=== PATIENT | female | born 1985 | race African-American/Black ===

== ENCOUNTER 2019-09-20 10:59 | Emergency (ER) | payer OTHER, SELFPAY ==
--- NOTE | 2019-09-20 11:05 | ED.GENADULT ---
HPI - General Adult General Chief complaint: Dental/Oral Stated complaint: toothache Time Seen by Provider: 09/20/19 11:14 Source: patient Mode of arrival: ambulatory Limitations: no limitations History of Present Illness HPI narrative: 33-year-old female patient presents to the [facility] with complaints of left lower dental pain x2 days that has gotten increasingly worse last night. Patient states she has been using Orajel, taking Tylenol and Motrin for the pain. Patient states she has been running some low-grade fevers. Patient states that her dentist office is not currently seeing any patients at this time. Related Data Home Medications Medication Instructions Recorded Confirmed clonazepam 1 mg PO DAILY 04/04/19 09/20/19 sertraline [Zoloft] 100 mg PO DAILY 04/04/19 09/20/19 Allergies Allergy/AdvReac Type Severity Reaction Status Date / Time metoclopramide Allergy Intermediate HALLUCINATI Verified 09/20/19 11:14 ONS tramadol Allergy Mild Confusion Verified 09/20/19 11:14 Review of Systems Review of Systems: Narrative: CONSTITUTIONAL: Denies fever, chills, or sweats. EYES: Denies visual changes, redness, or discharge. ENT: Denies rhinorrhea, congestion, sore throat, or otalgia. Positive left lower dental pain x2 days CARDIOVASCULAR: Denies chest pain, palpitations, or edema. RESPIRATORY: Denies cough or dyspnea. GASTROINTESTINAL: Denies abdominal pain, nausea, vomiting, or diarrhea. GENITOURINARY: Denies dysuria or hematuria. SKIN: Denies rash or itching. MUSCULOSKELETAL: Denies back pain, joint pain, or myalgia. NEUROLOGIC: Denies headache, numbness, or weakness. PSYCHIATRIC: Denies anxiety or depression. [facility] Past Medical History Medical History Anxiety Depression History of ovarian cyst Surgical History Surgical History Hx of section Social History Social History Smoking packs per day: 0.5 Smoking cigarettes per day: 10.0 Smoking status: Current every day smoker Gender identity (if verbalized by the patient): Female Comments At the time of my signature I agree with nursing past medical history, surgical, social, and family history. There is no relevant family history pertinent to the presenting complaint. Exam Narrative: Exam Narrative: GENERAL: Well-appearing, well-nourished, and in no acute distress. HEAD: Normocephalic, atraumatic. EYES: PERRLA and EOMI. ENT: Nares clear, no rhinorrhea or epistaxis. Mucous membranes moist. Patient does have a noticeable abscess that is open and draining to the left back molar. There is some surrounding erythema and swelling noted. There is tenderness to the touch. NECK: Supple. No lymphadenopathy CHEST: Clear to auscultation. No respiratory distress. HEART: Regular rate and rhythm. No murmur heard. Normal peripheral pulses. ABDOMEN: Soft, nontender, nondistended, normal active bowel sounds. EXTREMITIES: Normal range of motion. No edema. SKIN: Warm, dry, no rash. NEURO: No focal deficits. Alert and oriented x3. Course Vital Signs Vital signs: Vital Signs Temperature 37.8 C H 09/20/19 11:08 Pulse Rate 103 H 09/20/19 11:08 Respiratory Rate 16 09/20/19 11:08 Blood Pressure 125/77 09/20/19 11:08 Pulse Oximetry 98 09/20/19 11:08 Temperature 37.8 C H 09/20/19 11:08 Pulse Rate 103 H 09/20/19 11:08 Respiratory Rate 16 09/20/19 11:08 Blood Pressure 125/77 09/20/19 11:08 Pulse Oximetry 98 09/20/19 11:08 Vital signs reviewed Medical Decision Making Differential Diagnosis Differential Diagnosis: Differential diagnosis: Dental caries, periodontal disease, avulsed tooth, tooth infections, mandibular infection, Tan's angiana, upper tooth infection, dry socket, gingivitis, acute necrotizing ulcerative gingivitis, sialolithiasis. Notify patient
[2019-09-20 11:08] VITALS: BP 125/77; PULSE 103; RESP 16; TEMP 37.8; O2SAT 98
== END 2019-09-20 11:25 | disposition home or self-care (01) ==
PROVIDERS: Emergency Provider Nurse Practitioner Family
DX: K04.7 Periapical abscess without sinus (principal)
CPT/HCPCS: 99213; G0463

== ENCOUNTER 2020-01-29 11:53 | Emergency (ER) | payer OTHER, SELFPAY ==
--- NOTE | 2020-01-29 11:59 | ED.ABDPAIN ---
HPI - Abdominal Pain General Chief Complaint: Abdominal Pain Stated Complaint: LOWER ABD/BACKPAIN Source: patient and RN notes reviewed Mode of arrival: ambulatory Limitations: no limitations Related Data Home Medications Medication Instructions Recorded Confirmed clonazepam 1 mg PO DAILY 04/04/19 09/20/19 sertraline [Zoloft] 100 mg PO DAILY 04/04/19 09/20/19 Allergies Allergy/AdvReac Type Severity Reaction Status Date / Time metoclopramide Allergy Intermediate HALLUCINATI Verified 09/20/19 11:14 ONS tramadol Allergy Mild Confusion Verified 09/20/19 11:14 Review of Systems Review of Systems: All systems reviewed & are unremarkable except as noted in HPI and below PMFSH Social History Social History Smoking packs per day: 0.5 Smoking cigarettes per day: 10.0 Smoking status: Current every day smoker Gender identity (if verbalized by the patient): Female Comments At time of signature, agree with nursing past medical, surgical, social and family history. There is no relevant family history pertinent to the presenting complaint Course Course Emergency Course: Patient is aware of diagnosis, understands and agrees to treatment plan. Anticipatory guidance given. Patient agrees to follow-up as directed and is aware of reasons to seek care at the emergency department. Portions of this record may have been created with voice recognition software Vital Signs Vital signs: Reviewed. Critical Care Time Critical Care Time Critical Care Time: No Discharge Plan Discharge Prescriptions: No Action sertraline [Zoloft] 100 mg Tablet 100 mg PO DAILY RF: 0 clonazepam 1 mg Tablet 1 mg PO DAILY RF: 0
[2020-01-29 12:08] VITALS: BP 115/78; PULSE 101; RESP 16; TEMP 37.2; O2SAT 100
--- NOTE | 2020-01-29 12:20 | PC.NURSE ---
in br to obtain ua spec.
--- NOTE | 2020-01-29 12:21 | ED.FEMALEGU ---
HPI - Female Genitourinary General Chief complaint: Abdominal Pain Stated complaint: LOWER ABD/BACKPAIN Time Seen by Provider: 01/29/20 12:20 Source: patient and RN notes reviewed Mode of arrival: ambulatory Limitations: no limitations History of Present Illness HPI Narrative: 34-year-old female presents with concern for 3-day history of suprapubic tenderness, bilateral low back pain, dysuria, frequency. Reports her last menstrual period was 1 week ago. She denies fever, nausea, vomiting, malaise. Denies abdominal tenderness. MD elicited complaint: dysuria Related Data Home Medications Medication Instructions Recorded Confirmed clonazepam 1 mg PO DAILY 04/04/19 09/20/19 sertraline [Zoloft] 100 mg PO DAILY 04/04/19 09/20/19 Allergies Allergy/AdvReac Type Severity Reaction Status Date / Time metoclopramide Allergy Intermediate HALLUCINATI Verified 09/20/19 11:14 ONS tramadol Allergy Mild Confusion Verified 09/20/19 11:14 Review of Systems Review of Systems: Narrative: CONSTITUTIONAL: Denies malaise, chills, sweats, or fever. CARDIOVASCULAR: Denies chest pain, palpitations, or edema. RESPIRATORY: Denies dyspnea. GASTROINTESTINAL: Denies abdominal pain, nausea, vomiting, diarrhea, bloody, or mucous stools. GENITOURINARY: Reports dysuria, suprapubic pain, frequency. Denies hematuria. SKIN: Denies rash or itching. MUSCULOSKELETAL: Reports low back pain. Denies joint pain, or myalgia. All systems reviewed & are unremarkable except as noted in HPI and below PMFSH Social History Social History Smoking packs per day: 0.5 Smoking cigarettes per day: 10.0 Smoking status: Current every day smoker Gender identity (if verbalized by the patient): Female Comments At time of signature, agree with nursing past medical, surgical, social and family history. There is no relevant family history pertinent to the presenting complaint Exam Narrative: Exam Narrative: GENERAL: Well-appearing, well-nourished, and in no acute distress. HEAD: Normocephalic. EYES: PERRLA, conjunctivae clear. NECK: Supple. No lymphadenopathy CHEST: Clear to auscultation. No respiratory distress. HEART: Regular rate and rhythm. No murmur heard. Normal peripheral pulses. ABDOMEN: Soft, nontender upon palpation, nondistended, normal active bowel sounds, no palpable or pulsatile masses, no guarding. No CVA tenderness SKIN: Warm, dry, no rash. NEURO: Alert and oriented x3. PSYCH: Normal mood and affect Course Course Emergency Course: Patient is aware of diagnosis, understands and agrees to treatment plan. Anticipatory guidance given. Patient agrees to follow-up as directed and is aware of reasons to seek care at the emergency department. Portions of this record may have been created with voice recognition software Vital Signs Vital signs: Vital Signs Temperature 98.9 F 01/29/20 12:08 Pulse Rate 101 H 01/29/20 12:08 Respiratory Rate 16 01/29/20 12:08 Blood Pressure 115/78 01/29/20 12:08 Pulse Oximetry 100 01/29/20 12:08 Temperature 98.9 F 01/29/20 12:08 Pulse Rate 101 H 01/29/20 12:08 Respiratory Rate 16 01/29/20 12:08 Blood Pressure 115/78 01/29/20 12:08 Pulse Oximetry 100 01/29/20 12:08 Reviewed. MDM - Female Genitourinary MDM Narrative Medical decision making narrative: Exam findings and UA show no acute concerns or changes; patient is non-toxic appearing and is in no distress. Patient is appropriate for outpatient treatment and follow-up. Differential Diagnosis Differential diagnosis: Likely urinary tract infection and cystitis Lab Data Labs: UCG Bedside Result Negative Reference Range: Negative Urine Glucose Negative Reference Range: Negative Urine Bilirubin Negative Reference Range: Negative Urine Ketone Negative Reference Range: Negative Urine Speci
== END 2020-01-29 12:56 | disposition home or self-care (01) ==
PROVIDERS: Emergency Provider Nurse Practitioner
DX: R10.30 Lower abdominal pain, unspecified (principal); R30.0 Dysuria; R35.0 Frequency of micturition; F17.210 Nicotine dependence, cigarettes, uncomplicated; F41.9 Anxiety disorder, unspecified; F32.9 Major depressive disorder, single episode, unspecified
CPT/HCPCS: 81003; 81025; 87077; 87086; 87088; 87186; 99213; G0463

== ENCOUNTER 2020-03-11 17:22 | Emergency (ER) | payer OTHER, SELFPAY ==
[2020-03-11 17:37] VITALS: BP 124/74; PULSE 107; RESP 16; TEMP 36.8; O2SAT 99
--- NOTE | 2020-03-11 17:54 | ED.DENTAL ---
HPI - Dental/Oral General Chief complaint: Dental/Oral Stated complaint: Abscess Time Seen by Provider: 03/11/20 17:33 Source: patient and RN notes reviewed Mode of arrival: ambulatory Limitations: no limitations History of Present Illness HPI Narrative: This is a 34-year-old -[place] female who presented today with left jaw pain. According to patient 2 days ago she started developing pain to her left cheek from biting down on cheek and she also has a cavity to tooth #32. The patient denies SOB, CP, palpitation, extremity numbness, lightheadedness, dizziness, constipation, diarrhea, chills, or fever. Patient notes that she does not have much pain from her tooth but more so from her jaw that has trauma Related Data Home Medications Medication Instructions Recorded Confirmed clonazepam 1 mg PO DAILY 04/04/19 03/11/20 sertraline [Zoloft] 100 mg PO DAILY 04/04/19 03/11/20 Allergies Allergy/AdvReac Type Severity Reaction Status Date / Time metoclopramide Allergy Intermediate HALLUCINATI Verified 03/11/20 17:35 ONS tramadol Allergy Mild Confusion Verified 03/11/20 17:35 Review of Systems Review of Systems: All systems reviewed & are unremarkable except as noted in HPI and below (10 system review) PMFSH Past Medical History Medical History (Updated 03/11/20 @ 17:52 by MERLIN Reina) Anxiety Depression History of ovarian cyst Surgical History Surgical History Hx of section Social History Social History Smoking packs per day: 0.5 Smoking cigarettes per day: 10.0 Smoking status: Current every day smoker Gender identity (if verbalized by the patient): Female Exam Narrative: Exam Narrative: GENERAL: This is a well-nourished, well-developed patient, in no apparent distress. HEAD: normocephalic, atraumatic. EYES: PERRL. Sclera clear/white. Vision is grossly intact. EARS: External ears normal, auditory canals clear and without drainage, TMs normal without perforation. Hearing grossly intact. NOSE: External nose normal with no obvious nasal discharge, nares without redness, no rhinorrhea. THROAT: Edematous left cheek membrane with brown discoloration #32 tooth NECK: Neck supple, non-tender without lymphadenopathy, masses or thyromegaly. CARDIOVASCULAR: Regular rate and rhythm without murmurs, gallops, or rubs. RESPIRATORY: Clear to auscultation. Breath sounds equal bilaterally. No wheezes, rales, or rhonchi. GASTROINTESTINAL: Abdomen soft, non-tender, nondistended. Bowel sounds are active. No hepato-splenomegaly, or palpable masses. No guarding. SKIN: warm, intact with no suspicious lesions or rash, good texture and turgor. NEURO: awake, alert, and oriented to person, place and time. There were no obvious focal neurologic abnormalities. Steady gait EXTREMITIES: Normal range of motion. No edema. No calf tenderness. Negative Homans sign bilaterally. BACK: Nontender without deformity or crepitance. No flank tenderness. Course Course Emergency Course: Patient will discharge home with clindamycin 3 times daily x7 days and instructions on wound care Vital Signs Vital signs: Vital Signs Temperature 98.2 F 03/11/20 17:37 Pulse Rate 107 H 03/11/20 17:37 Respiratory Rate 16 03/11/20 17:37 Blood Pressure 124/74 03/11/20 17:37 Pulse Oximetry 99 03/11/20 17:37 Temperature 98.2 F 03/11/20 17:37 Pulse Rate 107 H 03/11/20 17:37 Respiratory Rate 16 03/11/20 17:37 Blood Pressure 124/74 03/11/20 17:37 Pulse Oximetry 99 03/11/20 17:37 Discharge Plan Discharge Clinical Impression: Dental caries Patient Disposition: Home, Self-Care Condition: Stable Instructions: Antibiotic Form, Toothache (ED) Prescriptions: New amoxicillin-pot clavulanate [Augmentin] 500-125 mg tablet 1 tablet PO TID 10 Days Qty: 30 RF: 0 hydrocodone-acetam
== END 2020-03-11 17:55 | disposition home or self-care (01) ==
PROVIDERS: Emergency Provider Nurse Practitioner
DX: K02.9 Dental caries, unspecified (principal); F17.210 Nicotine dependence, cigarettes, uncomplicated; F41.9 Anxiety disorder, unspecified; F32.9 Major depressive disorder, single episode, unspecified
CPT/HCPCS: 99213; G0463

== ENCOUNTER 2020-04-19 09:03 | Emergency (ER) | payer OTHER, SELFPAY ==
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
[2020-04-19 09:22] VITALS: BP 137/96; PULSE 101; RESP 16; TEMP 37; O2SAT 99
== END 2020-04-19 09:42 | disposition home or self-care (01) ==
PROVIDERS: Emergency Provider Nurse Practitioner Family
DX: S09.90XA Unspecified injury of head, initial encounter (principal); Y00.XXXA Assault by blunt object, initial encounter; F41.9 Anxiety disorder, unspecified; F32.9 Major depressive disorder, single episode, unspecified
CPT/HCPCS: 99213; G0463

== ENCOUNTER 2020-09-05 15:45 | Emergency (ER) | payer OTHER, SELFPAY ==
[2020-09-05 16:14] VITALS: BP 121/59; PULSE 99; RESP 16; TEMP 36.4; O2SAT 100
--- NOTE | 2020-09-05 16:39 | ED.GENADULT ---
HPI - General Adult General Chief complaint: Dental/Oral Stated complaint: body aches abd /tooth pain Time Seen by Provider: 09/05/20 16:39 Source: patient Mode of arrival: ambulatory Limitations: no limitations History of Present Illness HPI narrative: 34-year-old female patient presents to the [facility] with complaints of left upper and lower dental pain for the past week. Patient states she has been taking Tylenol, ibuprofen multiple times a day without much relief. Patient states she has had dental infections before the past. Denies any fevers, body aches or chills that she is aware of. Patient states she does not have a current dentist at this time. Related Data Home Medications Medication Instructions Recorded Confirmed clonazepam 1 mg PO DAILY 04/04/19 09/05/20 sertraline [Zoloft] 100 mg PO DAILY 04/04/19 09/05/20 Allergies Allergy/AdvReac Type Severity Reaction Status Date / Time metoclopramide Allergy Intermediate HALLUCINATI Verified 09/05/20 16:22 ONS tramadol Allergy Mild Confusion Verified 09/05/20 16:22 Review of Systems Review of Systems: Narrative: CONSTITUTIONAL: Denies fever, chills, or sweats. EYES: Denies visual changes, redness, or discharge. ENT: Denies rhinorrhea, congestion, sore throat, or otalgia. Positive left upper and lower dental pain x1 week CARDIOVASCULAR: Denies chest pain, palpitations, or edema. RESPIRATORY: Denies cough or dyspnea. GASTROINTESTINAL: Denies abdominal pain, nausea, vomiting, or diarrhea. GENITOURINARY: Denies dysuria or hematuria. SKIN: Denies rash or itching. MUSCULOSKELETAL: Denies back pain, joint pain, or myalgia. NEUROLOGIC: Denies headache, numbness, or weakness. PSYCHIATRIC: Denies anxiety or depression. [facility] Past Medical History Medical History (Updated 09/05/20 @ 16:45 by DAPHNEY Adames) Anxiety Depression GERD (gastroesophageal reflux disease) History of ovarian cyst Surgical History Surgical History Hx of section Social History Social History Smoking packs per day: 0.5 Smoking cigarettes per day: 10.0 Smoking status: Current every day smoker Gender identity (if verbalized by the patient): Female Comments At the time of my signature I agree with nursing past medical history, surgical, social, and family history. There is no relevant family history pertinent to the presenting complaint. Exam Narrative: Exam Narrative: GENERAL: Well-appearing, well-nourished, and in no acute distress. HEAD: Normocephalic, atraumatic. EYES: PERRLA and EOMI. ENT: Nares clear, no rhinorrhea or epistaxis. Mucous membranes moist. Patient has what appears to be an impacted wisdom tooth to the left lower back with surrounding erythema and redness. Patient also has what appears to be a cracked tooth to the left upper molar. Patient has some surrounding erythema to this tooth as well. No obvious abscess noted no abscesses palpated to the inner cheek. NECK: Supple. No lymphadenopathy CHEST: Clear to auscultation. No respiratory distress. HEART: Regular rate and rhythm. No murmur heard. Normal peripheral pulses. ABDOMEN: Soft, nontender, nondistended, normal active bowel sounds. EXTREMITIES: Normal range of motion. No edema. SKIN: Warm, dry, no rash. NEURO: No focal deficits. Alert and oriented x3. Course Vital Signs Vital signs: Vital Signs Temperature 36.4 C L 09/05/20 16:14 Pulse Rate 99 09/05/20 16:14 Respiratory Rate 16 09/05/20 16:14 Blood Pressure 121/59 L 09/05/20 16:14 Pulse Oximetry 100 09/05/20 16:14 Temperature 36.4 C L 09/05/20 16:14 Pulse Rate 99 09/05/20 16:14 Respiratory Rate 16 09/05/20 16:14 Blood Pressure 121/59 L 09/05/20 16:14 Pulse Oximetry 100 09/05/20 16:14 Vital signs reviewed Medical Decision Making Differential Diagnosis Differential Diagnosis: Differential d
== END 2020-09-05 16:55 | disposition home or self-care (01) ==
PROVIDERS: Emergency Provider Nurse Practitioner Family
DX: K04.7 Periapical abscess without sinus (principal); K21.9 Gastro-esophageal reflux disease without esophagitis; F17.210 Nicotine dependence, cigarettes, uncomplicated; F41.9 Anxiety disorder, unspecified; F32.9 Major depressive disorder, single episode, unspecified
CPT/HCPCS: 99213; G0463

== ENCOUNTER 2020-10-10 14:03 | Emergency (ER) | payer OTHER, SELFPAY ==
[2020-10-10 14:11] VITALS: BP 126/83; PULSE 99; RESP 16; TEMP 36.5; O2SAT 100
--- NOTE | 2020-10-10 14:20 | ED.DENTAL ---
HPI - Dental/Oral General Chief complaint: Dental/Oral Stated complaint: Tooth Pain Time Seen by Provider: 10/10/20 14:15 Source: patient and RN notes reviewed Mode of arrival: ambulatory Limitations: no limitations History of Present Illness HPI Narrative: 35-year-old female presents to the [facility] with the front bottom teeth pain swelling and decay of the gum. Patient states she has not seen a dentist in years. Has swelling and pus along with decay for bottom teeth. Related Data Home Medications Medication Instructions Recorded Confirmed clonazepam 1 mg PO DAILY 04/04/19 09/05/20 sertraline [Zoloft] 100 mg PO DAILY 04/04/19 09/05/20 Allergies Allergy/AdvReac Type Severity Reaction Status Date / Time metoclopramide Allergy Intermediate HALLUCINATI Verified 09/05/20 16:22 ONS tramadol Allergy Mild Confusion Verified 09/05/20 16:22 Review of Systems Review of Systems: All systems reviewed & are unremarkable except as noted in HPI and below Constitutional: Constitutional: Reports no additional constitutional complaints Eyes: Eyes: Reports no additional eye complaints ENT: Reports as per HPI Comments: Pain bottom for teeth with decay Cardiovascular: Cardiovascular: Reports no additional cardiovascular complaints and Denies chest pain Respiratory: Respiratory: Reports no additional respiratory complaints, Denies cough and Denies dyspnea Gastrointestinal: Gastrointestinal: Reports no additional gastrointestinal complaints, Denies abdominal pain, Denies nausea and Denies vomiting Genitourinary: Genitourinary: Reports no additional female genitourinary complaints Musculoskeletal: Musculoskeletal: Reports no additional musculoskeletal complaints Integumentary/Breasts: Skin/Breast: Reports system reviewed and no additional complaints, except as docu Neurologic: Reports system reviewed and no additional complaints, except as documented [facility] Past Medical History Medical History (Updated 10/10/20 @ 14:23 by Payal Salgado) Anxiety Depression GERD (gastroesophageal reflux disease) History of ovarian cyst Surgical History Surgical History Hx of section Social History Social History Smoking packs per day: 0.5 Smoking cigarettes per day: 10.0 Smoking status: Current every day smoker Gender identity (if verbalized by the patient): Female Comments At the time of my signature, I reviewed and agree with the nursing past medical, surgical, social, and family history. There is no relevant family history pertinent to the patient complaint. Exam Const: General: healthy appearing, no acute distress and alert Nutritional Appearance: well nourished and obese Orientation/consciousness: patient oriented x3 HENMT: Head: normal to inspection Ears: TM's normal bilaterally Other: Very poor dentition, gum's are receded from forward bottom teeth to the point of seeing the root of all 4 teeth along with plaque buildup. Eyes: Pupils: Equal, round and reactive pupils present Neck: Neck: normal visual inspection and no lymphadenopathy Chest: Chest palpation & inspection: normal inspection of the chest Resp: Effort & Inspection: normal respiratory effort and no use of accessory muscles Auscultation: clear to auscultation bilaterally, no crackles, no rales, no rhonchi and no wheezes Cardio: Rate: regular rate Rhythm: regular rhythm : General: Yes no CVA tenderness Skin: General skin exam: normal color Rashes: no rashes Neuro: General: patient oriented x3 and moves all extremities Speech: normal speech Gait exam (Neuro): Normal gait present Extrem: General: normal to inspection Psych: Appearance: grossly normal Mental Status: mental status grossly normal Affect: normal affect Attitude: cooperative Thought content: Yes Normal thought content present Course Vital Signs Vital signs: Vi
== END 2020-10-10 14:25 | disposition home or self-care (01) ==
PROVIDERS: Emergency Provider Nurse Practitioner
DX: K08.89 Other specified disorders of teeth and supporting structures (principal); K06.9 Disorder of gingiva and edentulous alveolar ridge, unspecified; F17.210 Nicotine dependence, cigarettes, uncomplicated; K21.9 Gastro-esophageal reflux disease without esophagitis; F41.9 Anxiety disorder, unspecified; F32.9 Major depressive disorder, single episode, unspecified
CPT/HCPCS: 99213; G0463

== ENCOUNTER 2020-10-29 11:33 | Emergency (ER) | payer OTHER, SELFPAY ==
[2020-10-29 11:41] VITALS: BP 114/77; PULSE 96; RESP 17; TEMP 36.7; O2SAT 100
--- NOTE | 2020-10-29 11:52 | ED.DENTAL ---
HPI - Dental/Oral General Chief complaint: Dental/Oral Stated complaint: Tooth Pain Time Seen by Provider: 10/29/20 11:50 Source: patient, RN notes reviewed and old records reviewed Mode of arrival: ambulatory Limitations: no limitations History of Present Illness HPI Narrative: 35 year old female who presents to [facility] care with complaints of dental pain to left upper posterior molar #16 tooth for the past 3 days with some pain to her facial area near tooth. Patient states that she has appointment at [facility] in [facility] in 2 weeks. She states that she has been taking Tylenol and Ibuprofen for her discomfort with no relief in her pain. Patient denies any difficulty with her breathing or any difficulty with swallowing, no trismus noted. Patient denies any known fever, sweats or chills. MD Complaint: tooth pain Location: Tooth # (16) Onset (ago): day(s) (3) Duration: constant Relieving factors: nothing Exacerbating factors: chewing Context: history of dental caries Associated symptoms: gum swelling Treatment prior to arrival: oral analgesic Related Data Home Medications Medication Instructions Recorded Confirmed clonazepam 1 mg PO DAILY 04/04/19 09/05/20 sertraline [Zoloft] 100 mg PO DAILY 04/04/19 09/05/20 Allergies Allergy/AdvReac Type Severity Reaction Status Date / Time metoclopramide Allergy Intermediate HALLUCINATI Verified 09/05/20 16:22 ONS tramadol Allergy Mild Confusion Verified 09/05/20 16:22 Review of Systems Review of Systems: Narrative: CONSTITUTIONAL: Denies fever, chills, or sweats. EYES: Denies visual changes, redness, or discharge. ENT: Denies rhinorrhea, congestion, sore throat, or otalgia. positive for dental pain left upper posterior molar with some pain to left face also CARDIOVASCULAR: Denies chest pain, palpitations, or edema. RESPIRATORY: Denies cough or dyspnea. GASTROINTESTINAL: Denies abdominal pain, nausea, vomiting, or diarrhea. GENITOURINARY: Denies dysuria or hematuria. SKIN: Denies rash or itching. MUSCULOSKELETAL: Denies back pain, joint pain, or myalgia. NEUROLOGIC: Denies headache, numbness, or weakness. PSYCHIATRIC: Positive history of anxiety or depression. All systems reviewed & are unremarkable except as noted in HPI and below PMFSH Past Medical History Medical History Anxiety Depression GERD (gastroesophageal reflux disease) History of ovarian cyst Surgical History Surgical History Hx of section Family History Family History (Updated 10/31/20 @ 10:44 by Purvi Dozier NP) Mother Hypertension Grandparent Hypertension Diabetes mellitus Other Asthma Social History Social History Smoking packs per day: 0.5 Smoking cigarettes per day: 10.0 Smoking status: Current every day smoker Gender identity (if verbalized by the patient): Female Comments At time of signature, agree with nursing past medical, surgical, social and family history. There is no relevant family history pertinent to the presenting complaint Exam Narrative: Exam Narrative: GENERAL: Well-appearing, well-nourished, and in no acute distress. HEAD: Normocephalic, atraumatic. ENT: Nares clear, no rhinorrhea or epistaxis. Mucous membranes moist.TM's normal with good light reflex, throat pink with no lesions exudates or tonsil swelling, No Tan angina noted, swelling noted to gum around #16 tooth with white abscess to outer gum near #16 tooth, no facial edema noted, no trismus NECK: Supple.no lymphadenopathy CHEST: Clear to auscultation. No respiratory distress. no tachypnea or accessory muscle use SAO2 100% on room air. HEART: Regular rate and rhythm. No murmur heard. Normal peripheral pulses. ABDOMEN: Soft, nontender, nondistended, normal active bowel sounds. EXTREMITIES: Normal range of motion. No
== END 2020-10-29 12:23 | disposition home or self-care (01) ==
PROVIDERS: Emergency Provider Registered Nurse
DX: K04.7 Periapical abscess without sinus (principal); F17.210 Nicotine dependence, cigarettes, uncomplicated; K21.9 Gastro-esophageal reflux disease without esophagitis; F41.9 Anxiety disorder, unspecified; F32.9 Major depressive disorder, single episode, unspecified
CPT/HCPCS: 99213; G0463

== ENCOUNTER 2020-11-21 05:40 | Emergency (ER) | payer OTHER, SELFPAY ==
[2020-11-21 05:43] VITALS: BP 150/105; PULSE 83; RESP 20; TEMP 36.4; O2SAT 100
--- NOTE | 2020-11-21 05:49 | PC.NURSE ---
Pt presents to ED with complaints of dental pain that onset approx 2 months ago. Pt states she has seen several dentist who will not accept her insurance. Pt states she has gum disease. Pt complains of pain to ears, face, head and states left jaw is swollen. Pt adds nausea and poor appetite. Denies fever, chills, and emesis. Pt rates pain 7/10 and aching. States she last treated pain with norco at 0500 this morning with no relief. Moderate swelling noted to face. Pt states she needs most her teeth pulled but cannot find a dentist who will accept her insurance and does not know what else to do. Pt resting on cart in its lowest position with call button and personal items within reach. Pt advised to press call button for assistance.
--- NOTE | 2020-11-21 05:53 | PC.NURSE ---
Pt adds that she was advised that she has an abscess, gum disease with an expose nerve and several teeth need to be removed. Pt states she had a few teeth removed at [place] approx 3 years ago.
--- NOTE | 2020-11-21 06:54 | PC.NURSE ---
Pt resting on cart in its lowest position with call button and personal items within reach. Pt remains alert, stable and in no obvious distress. Call button and personal items within reach. Pt advised to press call button for assistance.
--- NOTE | 2020-11-21 06:59 | PC.NURSE ---
Pt provided warm blankets for comfort.
[2020-11-21] MEDS: KETOROLAC (*BKC) 60 MG/2 ML VIAL IM (07:32)
[2020-11-21] MEDS: ONDANSETRON HCL ODT 4 MG TABLET PO (07:33)
--- NOTE | 2020-11-21 07:35 | ED.DENTAL ---
HPI - Dental/Oral General Chief complaint: Dental/Oral Stated complaint: dental pain Time Seen by Provider: 11/21/20 07:05 Source: patient and RN notes reviewed Mode of arrival: ambulatory Limitations: no limitations History of Present Illness HPI Narrative: This is a 35 year old female who presents for evaluation of left upper molar pain. she states this pain has been present for 2 months . She was evaluated by a dentist on Sunday and she was started on Amoxicillin. She was told that she will need extraction of some teeth and fillings. She was also diagnosed with gum disease. She has been taking for norco for pain, but she states nothing is working for her pain. She denies fever, nausea, vomiting. She reports she has associated left face pain and left ear pain. She is unable to afford the necessary treatment with this dental clinic. Related Data Home Medications Medication Instructions Recorded Confirmed clonazepam 1 mg PO DAILY 04/04/19 09/05/20 sertraline [Zoloft] 100 mg PO DAILY 04/04/19 09/05/20 Allergies Allergy/AdvReac Type Severity Reaction Status Date / Time metoclopramide Allergy Intermediate HALLUCINATI Verified 09/05/20 16:22 ONS tramadol Allergy Mild Confusion Verified 09/05/20 16:22 Review of Systems Review of Systems: All systems reviewed & are unremarkable except as noted in HPI and below PMFSH Past Medical History Medical History Anxiety Depression GERD (gastroesophageal reflux disease) History of ovarian cyst Surgical History Surgical History Hx of section Family History Family History (Updated 10/31/20 @ 10:44 by Purvi Dozier NP) Mother Hypertension Grandparent Hypertension Diabetes mellitus Other Asthma Social History Social History Smoking packs per day: 0.5 Smoking cigarettes per day: 10.0 Smoking status: Current every day smoker Gender identity (if verbalized by the patient): Female Exam Const: General: no acute distress and alert Orientation/consciousness: patient oriented x3 HENMT: Head: normocephalic and atraumatic Ears: TM's normal bilaterally Face and sinus: face symmetric and other (no facial of jaw swelling, no trismus, able to fully open mouth. ) Teeth and gingiva: abnormal tooth and associated gingiva and other (tenderness to tooth #16. ) Throat: posterior oropharynx normal Eyes: EOM: EOMs intact bilaterally Resp: Effort & Inspection: normal respiratory effort and no retractions Auscultation: clear to auscultation bilaterally Skin: General skin exam: normal color Rashes: no rashes Neuro: General: patient oriented x3, moves all extremities and CN's II-XI intact bilaterally Psych: Mental Status: mental status grossly normal Affect: normal affect Course Reevaluation(s) Reevaluation #1: Patient has no noticeable abscess or sign of saulo's. I have explained to patient that she may want to try going to dental schools for treatment. She will continue antibiotics. Date: 11/21/20 Time: 07:47 Vital Signs Vital signs: Vital Signs Temperature 97.6 F 11/21/20 05:43 Pulse Rate 83 11/21/20 05:43 Respiratory Rate 20 11/21/20 05:43 Blood Pressure 150/105 H 11/21/20 05:43 Pulse Oximetry 100 11/21/20 05:43 Temperature 97.6 F 11/21/20 05:43 Pulse Rate 83 11/21/20 05:43 Respiratory Rate 20 11/21/20 05:43 Blood Pressure 150/105 H 11/21/20 05:43 Pulse Oximetry 100 11/21/20 05:43 Discharge Plan Discharge Clinical Impression: Dental caries, Toothache Patient Disposition: Home, Self-Care Condition: Stable Instructions: Antibiotic Form, Dental Abscess (ED), Toothache (ED) Additional Instructions: Today you were seen for your dental and gum issues. I would recommend you continue to take an
== END 2020-11-21 08:02 | disposition home or self-care (01) ==
PROVIDERS: Emergency Provider General Practice
DX: K02.9 Dental caries, unspecified (principal); F41.9 Anxiety disorder, unspecified; F32.9 Major depressive disorder, single episode, unspecified; K21.9 Gastro-esophageal reflux disease without esophagitis; F17.210 Nicotine dependence, cigarettes, uncomplicated
CPT/HCPCS: 96372; 99283; A9270; J1885

== ENCOUNTER 2020-11-22 10:24 | Emergency (ER) | payer OTHER, SELFPAY ==
[2020-11-22 10:38] VITALS: BP 116/89; PULSE 91; RESP 17; TEMP 36.3; O2SAT 100
--- NOTE | 2020-11-22 11:16 | ED.DENTAL ---
HPI - Dental/Oral General Chief complaint: Dental/Oral Stated complaint: Tooth Pain Time Seen by Provider: 11/22/20 11:01 Source: patient and RN notes reviewed Mode of arrival: ambulatory Limitations: no limitations History of Present Illness HPI Narrative: Patient presents today complaining of a several month history of left upper tooth pain and left lower tooth pain. She has been seen at urgent care in the ER several times for the same tooth pain. She has Medicaid and has been unable to find a dentist. States she was seen by dentist approximately 1 week ago and was told it was going to take several thousand dollars to fix her mouth and she had several bad teeth, needed extractions, and also had a gum infection. She was on a course of penicillin starting on 10/29. She was on a course of amoxicillin starting protocol approximately 1 week ago. She was seen in the ER yesterday and was started on a course of clindamycin. No immediate. States she has been driving around town with her grandmother trying to find a dentist that will take her Medicaid, but has been unable. States that she called the [facility] dental [facility] but was told that it would be a 2-month wait and did not sign up for their waiting list. MD Complaint: tooth pain Related Data Allergies Allergy/AdvReac Type Severity Reaction Status Date / Time metoclopramide Allergy Intermediate HALLUCINATI Verified 11/22/20 10:45 ONS tramadol Allergy Mild Confusion Verified 11/22/20 10:45 Review of Systems Review of Systems: Narrative: CONSTITUTIONAL: Denies body aches, fever, chills, or sweats. EYES: Denies visual changes, redness, or discharge. ENT: Denies rhinorrhea, congestion, sore throat, or otalgia.+ Dental pain CARDIOVASCULAR: Denies chest pain, palpitations, or edema. RESPIRATORY: Denies cough or dyspnea. GASTROINTESTINAL: Denies abdominal pain, nausea, vomiting, or diarrhea. GENITOURINARY: Denies dysuria or hematuria. SKIN: Denies rash, itching, or wounds. MUSCULOSKELETAL: Denies back pain, joint pain, or myalgia. NEUROLOGIC: Denies headache, numbness, tingling, or weakness. PSYCH: Denies depression or anxiety. [facility] Past Medical History Medical History Anxiety Depression GERD (gastroesophageal reflux disease) History of ovarian cyst Surgical History Surgical History Hx of section Family History Family History Mother Hypertension Grandparent Hypertension Diabetes mellitus Other Asthma Social History Social History Smoking packs per day: 0.5 Smoking cigarettes per day: 10.0 Smoking status: Current every day smoker Gender identity (if verbalized by the patient): Female Comments At time of signature, I have reviewed and agree with nursing past medical, surgical, social and family history unless otherwise noted. Please see nursing chart for further information. There is no relevant family history pertinent to the presenting complaint Exam Narrative: Exam Narrative: GENERAL: Well-appearing, well-nourished, and in no acute distress. Patient is sad and tearful. Face swollen from crying. HEAD: Normocephalic, atraumatic. EYES: EOMI. No redness or drainage. Conjunctivae normal. ENT: Mucous membranes pink and moist. Throat normal. Uvula midline. + Tenderness to tooth #16. A piece of tooth #17 remains and is tender as well. Swelling of the gumline. NECK: Normal AROM. Supple. No lymphadenopathy. CHEST: No respiratory distress. Clear to auscultation. HEART: Regular rate and rhythm. No murmur appreciated. Normal peripheral pulses. EXTREMITIES: Normal range of motion. No edema. SKIN: Warm, dry, no rash. Capillary refill normal. Normal skin turgor. NEURO: No focal deficits. Alert and oriented x3. Gait
== END 2020-11-22 11:26 | disposition home or self-care (01) ==
PROVIDERS: Emergency Provider Nurse Practitioner
DX: K02.9 Dental caries, unspecified (principal); F17.200 Nicotine dependence, unspecified, uncomplicated; K21.9 Gastro-esophageal reflux disease without esophagitis
CPT/HCPCS: 99213; G0463

== ENCOUNTER 2020-12-21 18:42 | Emergency (ER) | payer OTHER, SELFPAY ==
[2020-12-21 18:49] VITALS: BP 125/81; PULSE 100; RESP 16; TEMP 37.1; O2SAT 99
--- NOTE | 2020-12-21 19:25 | ED.DENTAL ---
HPI - Dental/Oral General Chief complaint: Dental/Oral Stated complaint: tooth pain Time Seen by Provider: 12/21/20 19:10 Source: patient, RN notes reviewed and old records reviewed Mode of arrival: ambulatory Limitations: no limitations History of Present Illness HPI Narrative: Patient presents today complaining of left lower dental pain. This is a chronic issue for her and she has been seen at [facility] many times for it. She has finally found a dentist and oral surgeon who will perform 3 extractions for her. This is scheduled for January 12. Her dentist has told her she has her nerves exposed. And she states she is in severe pain that she rates a 10/10. She has been taking Tylenol arthritis for pain as she has run out of her prescribed hydrocodone several days ago. She has attempted to call her dentist today to see if she can get another prescription, but he was not in the office. MD Complaint: tooth pain Related Data Home Medications Medication Instructions Recorded Confirmed clonazepam 1 mg PO TID 12/21/20 12/21/20 sertraline 100 mg PO DAILY 12/21/20 12/21/20 Allergies Allergy/AdvReac Type Severity Reaction Status Date / Time metoclopramide Allergy Intermediate HALLUCINATI Verified 12/21/20 18:58 ONS tramadol Allergy Mild Confusion Verified 12/21/20 18:58 Review of Systems Review of Systems: Narrative: CONSTITUTIONAL: Denies body aches, fever, chills, or sweats. EYES: Denies visual changes, redness, or discharge. ENT: Denies rhinorrhea, congestion, sore throat, or otalgia.+ Tooth pain CARDIOVASCULAR: Denies chest pain, palpitations, or edema. RESPIRATORY: Denies cough or dyspnea. GASTROINTESTINAL: Denies abdominal pain, nausea, vomiting, or diarrhea. GENITOURINARY: Denies dysuria or hematuria. SKIN: Denies rash, itching, or wounds. MUSCULOSKELETAL: Denies back pain, joint pain, or myalgia. NEUROLOGIC: Denies headache, numbness, tingling, or weakness. PSYCH: Denies depression or anxiety. [facility] Past Medical History Medical History Anxiety Depression GERD (gastroesophageal reflux disease) History of ovarian cyst Surgical History Surgical History Hx of section Family History Family History Mother Hypertension Grandparent Hypertension Diabetes mellitus Other Asthma Social History Social History Smoking packs per day: 0.5 Smoking cigarettes per day: 10.0 Smoking status: Current every day smoker Gender identity (if verbalized by the patient): Female Comments At time of signature, I have reviewed and agree with nursing past medical, surgical, social and family history unless otherwise noted. Please see nursing chart for further information. There is no relevant family history pertinent to the presenting complaint Exam Narrative: Exam Narrative: GENERAL: Well-appearing, well-nourished, and in no acute distress. HEAD: Normocephalic, atraumatic. EYES: EOMI. No redness or drainage. Conjunctivae normal. ENT: Mucous membranes pink and moist. Tenderness to the left lower posterior teeth NECK: Normal AROM. CHEST: No respiratory distress. EXTREMITIES: Normal range of motion. No edema. SKIN: Warm, dry, no rash. Capillary refill normal. Normal skin turgor. NEURO: No focal deficits. Alert and oriented x3. Gait steady. PSYCH: Normal affect. No signs of depression or anxiety. Course Vital Signs Vital signs: Vital Signs Temperature 98.8 F 12/21/20 18:49 Pulse Rate 100 12/21/20 18:49 Respiratory Rate 16 12/21/20 18:49 Blood Pressure 125/81 12/21/20 18:49 Pulse Oximetry 99 12/21/20 18:49 Temperature 98.8 F 12/21/20 18:49 Pulse Rate 100 12/21/20 18:49 Respiratory Rate 16 12/21/20 18:49 Blood Pressure
== END 2020-12-21 19:46 | disposition home or self-care (01) ==
PROVIDERS: Emergency Provider Nurse Practitioner
DX: G89.29 Other chronic pain (principal); K08.89 Other specified disorders of teeth and supporting structures; F17.219 Nicotine dependence, cigarettes, with unspecified nicotine-induced disorders; K21.9 Gastro-esophageal reflux disease without esophagitis; F41.9 Anxiety disorder, unspecified; F32.9 Major depressive disorder, single episode, unspecified
CPT/HCPCS: 99213; G0463

== ENCOUNTER 2021-03-15 18:36 | Emergency (ER) | payer OTHER, SELFPAY ==
[2021-03-15 18:46] VITALS: BP 104/73; PULSE 101; RESP 16; TEMP 36.7; O2SAT 99
--- NOTE | 2021-03-15 18:49 | ED.URI ---
HPI - URI/Sore Throat General Chief Complaint: Upper Respiratory Infection Stated Complaint: diarrhea/dizziness/sor throat/body aches Time Seen by Provider: 03/15/21 18:49 Source: patient and RN notes reviewed Mode of arrival: ambulatory Limitations: no limitations History of Present Illness HPI Narrative: Lawrence is a 35-year-old female patient with complaints of diarrhea for for one day. Patient states she had a call off work yesterday for diarrhea. Patient states she had 8 episodes of diarrhea in 1 day. Patient states she has had a sore throat and chills. Patient has taken no [id number] medications for this. Patient states she was nauseated after she ate 1 Lays potato chip. Patient is sitting upright interacting appropriately with staff. Patient states she has had occasional bouts of diarrhea off and on for 7 days. Consistent for 1 day Related Data Home Medications Medication Instructions Recorded Confirmed clonazepam 1 mg PO TID 12/21/20 12/21/20 sertraline 100 mg PO DAILY 12/21/20 12/21/20 Allergies Allergy/AdvReac Type Severity Reaction Status Date / Time metoclopramide Allergy Intermediate HALLUCINATI Verified 03/15/21 18:58 ONS tramadol Allergy Mild Confusion Verified 03/15/21 18:58 Review of Systems Review of Systems: CONSTITUTIONAL: Denies body aches, fever, + chills, EYES: Denies visual changes, redness, or discharge. ENT: Denies rhinorrhea, congestion, + sore throat, CARDIOVASCULAR: Denies chest pain, palpitations, or edema. RESPIRATORY: Denies cough or dyspnea. GASTROINTESTINAL: Denies abdominal pain, nausea, vomiting, + diarrhea. GENITOURINARY: Denies dysuria or hematuria. SKIN: Denies rash, itching, or wounds. MUSCULOSKELETAL: Denies back pain, joint pain, or myalgia. NEUROLOGIC: Denies headache, numbness, tingling, or weakness. PSYCH: Denies depression or anxiety. All systems reviewed & are unremarkable except as noted in HPI and below PMFSH Past Medical History Medical History Anxiety Depression GERD (gastroesophageal reflux disease) History of ovarian cyst Surgical History Surgical History Hx of section Family History Family History Mother Hypertension Grandparent Hypertension Diabetes mellitus Other Asthma Social History Social History Smoking packs per day: 0.5 Smoking cigarettes per day: 10.0 Smoking status: Current every day smoker Gender identity (if verbalized by the patient): Female Comments At time of signature, I have reviewed and agree with nursing past medical, surgical, social and family history unless otherwise noted. Please see nursing chart for further information. There is no relevant family history pertinent to the presenting complaint Exam Narrative: GENERAL: Well-appearing, well-nourished, and in no acute distress. HEAD: Normocephalic, atraumatic. EYES: EOMI. No redness or drainage. Conjunctivae normal. ENT: Mucous membranes pink and moist. Nares clear. No rhinorrhea. TMs normal bilaterally. Throat normal. Uvula midline. NECK: Normal AROM. Supple. No lymphadenopathy. CHEST: No respiratory distress. Clear to auscultation. ABDOMEN: Soft, nontender, nondistended, normal active bowel sounds. MUSCULOSKELETAL: No bony tenderness. EXTREMITIES: Normal range of motion. No edema. SKIN: Warm, dry, no rash. Capillary refill normal. Normal skin turgor. NEURO: No focal deficits. Alert and oriented x3. Gait steady. PSYCH: Normal affect. No signs of depression or anxiety. Course Vital Signs Vital signs: Vital Signs Temperature 36.7 C 03/15/21 18:46 Pulse Rate 101 H 03/15/21 18:46 Respiratory Rate 16 03/15/21 18:46 Blood Pressure 104/73 03/15/21 18:46 Pulse Oximetry 99 03/15/21 18:46
== END 2021-03-15 19:05 | disposition home or self-care (01) ==
PROVIDERS: Emergency Provider Nurse Practitioner Family
DX: R19.7 Diarrhea, unspecified (principal); F17.210 Nicotine dependence, cigarettes, uncomplicated; K21.9 Gastro-esophageal reflux disease without esophagitis; F41.9 Anxiety disorder, unspecified; F32.A Depression, unspecified
CPT/HCPCS: 99211; G0463

== ENCOUNTER 2021-05-12 17:55 | Emergency (ER) | payer OTHER, SELFPAY | END 2021-05-12 17:58 | disposition left against medical advice (07) | LOC: ANHED 18:03 | DX: Z53.21 Procedure and treatment not carried out due to patient leaving prior to being seen by health care provider (principal) | CPT/HCPCS: 99199 ==

== ENCOUNTER 2021-08-16 00:22 | Emergency (ER) | payer OTHER, SELFPAY ==
--- NOTE | ~2021-08-16 | CT_ITS ---
EXAMINATION: CT BRAIN W/O DATE: 08/16/2021 01:34 INDICATION: Numbness of the right upper extremity. TECHNIQUE: Computed tomography (CT) of the head was performed without intravenous contrast. The dose- length product was 605.33 mGy-cm. Automated exposure control and iterative reconstruction technique w ere employed. COMPARISON: No prior studies for comparison. FINDINGS: Normal brain parenchymal volume for age. Normal hunter-white differentiation. No acute intrac ranial hemorrhage, infarction, mass or mass effect. No ventriculomegaly or midline shift. Midline sagittal images demonstrate a normal corpus callosum, c raniovertebral junction and sella turcica. Basilar cisterns are patent. Paranasal sinuses and mastoids are pneumatized. No depressed skull fractures. IMPRESSION: 1. No acute intracranial abnormality. Reviewed, dictated and finalized at location A.
[2021-08-16 00:29] VITALS: BP 125/91; PULSE 95; RESP 18; TEMP 36.8; O2SAT 100
--- NOTE | 2021-08-16 00:42 | ECG_ITS ---
Measurements Intervals [place] Rate: 84 P: 58 SC: 167 QRS: 42 QRSD: 75 T: 26 QT: 332 QTc: 394 Interpretive Statements SINUS RHYTHM NONSPECIFIC T-WAVE ABNORMALITY ABNORMAL ECG COMPARED TO ECG 04/04/2019 17:31:25 T-WAVE ABNORMALITY NOW PRESENT Electronically Signed On 08-16-2021 11:17:39 CDT by Mamadou Garcia M.D.
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
[2021-08-16 03:27] VITALS: BP 124/82; PULSE 81; RESP 14; O2SAT 100
== END 2021-08-16 03:30 | disposition home or self-care (01) ==
PROVIDERS: Emergency Provider Emergency Medicine
DX: M54.10 Radiculopathy, site unspecified (principal); F41.9 Anxiety disorder, unspecified; F32.A Depression, unspecified; K21.9 Gastro-esophageal reflux disease without esophagitis; F17.210 Nicotine dependence, cigarettes, uncomplicated; R94.31 Abnormal electrocardiogram [ECG] [EKG]
CPT/HCPCS: 70450; 93005; 99284

== ENCOUNTER 2022-01-23 16:38 | Emergency (ER) | payer OTHER, SELFPAY ==
[2022-01-23 16:46] VITALS: BP 127/94; PULSE 107; RESP 16; TEMP 37.2; O2SAT 100
--- NOTE | 2022-01-23 16:47 | ED.DENTAL ---
HPI - Dental/Oral General Chief complaint: Dental/Oral Stated complaint: Dental Pain Time Seen by Provider: 01/23/22 16:47 Source: patient, RN notes reviewed and old records reviewed Mode of arrival: ambulatory Limitations: no limitations History of Present Illness HPI Narrative: 36-year-old female presents to the [facility] with complaints of chronic dental pain. States that she has seen dental providers but no one takes her insurance. States that she cannot drive to [place] to have her teeth taken care of. No fevers. Is scheduled for right rotator cuff surgery. MD Complaint: tooth pain Related Data Home Medications Medication Instructions Recorded Confirmed clonazepam 1 mg tablet 1 mg PO TID 12/21/20 01/23/22 sertraline 100 mg tablet 100 mg PO DAILY 12/21/20 01/23/22 Allergies Allergy/AdvReac Type Severity Reaction Status Date / Time metoclopramide Allergy Intermediate HALLUCINATI Verified 01/23/22 16:44 ONS tramadol Allergy Mild Confusion Verified 01/23/22 16:44 Review of Systems Review of Systems: All systems reviewed & are unremarkable except as noted in HPI and below Constitutional: Constitutional: Reports no additional constitutional complaints, Denies chills and Denies fever(s) Eyes: Eyes: Reports no additional eye complaints ENT: Reports as per HPI Comments: Dental pain Cardiovascular: Cardiovascular: Reports no additional cardiovascular complaints, Denies chest pain and Denies dyspnea Respiratory: Respiratory: Reports no additional respiratory complaints, Denies cough and Denies dyspnea Musculoskeletal: Musculoskeletal: Reports no additional musculoskeletal complaints Integumentary/Breasts: Skin/Breast: Reports system reviewed and no additional complaints, except as docu Neurologic: Reports system reviewed and no additional complaints, except as documented Psychiatric: Psychiatric: Reports no additional psychiatric complaints Allergic/Immunologic: Allergic/Immunologic: Reports no additional allergic/immunologic complaints [facility] Past Medical History Medical History Anxiety Depression GERD (gastroesophageal reflux disease) History of ovarian cyst Surgical History Surgical History Hx of section Family History Family History Mother Hypertension Grandparent Hypertension Diabetes mellitus Other Asthma Social History Social History (Reviewed 01/24/22 @ 19:49 by FARRUKH Alvarez Smoking packs per day: 0.5 Smoking cigarettes per day: 10.0 Smoking status: Current every day smoker Gender identity (if verbalized by the patient): Female Comments At the time of my signature, I reviewed and agree with the nursing past medical, surgical, social, and family history. There is no relevant family history pertinent to the patient complaint. Exam Const: General: healthy appearing, no acute distress and alert Nutritional Appearance: well nourished Orientation/consciousness: patient oriented x3 Limitations: no limitations HENMT: Head: normal to inspection Ears: external ears normal, TM's normal bilaterally and EAC's normal General nose exam: Normal external nose present and Normal nasal mucous membranes and turbinates present Face and sinus: normal facial exam Mouth: Yes Normal oral and palatal mucosa present Teeth and gingiva: abnormal tooth and associated gingiva (left upper and lower abdomen inflamed gingiva) and poor dentition Throat: posterior oropharynx normal, tonsils normal and uvula midline Eyes: Conjunctivae: conjunctivae normal Pupils: Equal, round and reactive pupils present Neck: Neck: normal visual inspection, no lymphadenopathy and no meningeal signs Chest: Chest palpation & inspection: normal inspection of the chest Resp: Effort & Inspection: normal respiratory effort [facility]
== END 2022-01-23 17:04 | disposition home or self-care (01) ==
PROVIDERS: Emergency Provider Nurse Practitioner
DX: K02.9 Dental caries, unspecified (principal); F17.210 Nicotine dependence, cigarettes, uncomplicated; K21.9 Gastro-esophageal reflux disease without esophagitis; F41.9 Anxiety disorder, unspecified; F32.A Depression, unspecified
CPT/HCPCS: 99213; G0463

== ENCOUNTER 2022-05-15 05:47 | Emergency (ER) | payer OTHER, SELFPAY ==
[2022-05-15 05:54] VITALS: BP 127/86; PULSE 125; RESP 30; TEMP 38.2; O2SAT 100
[2022-05-15 06:36] LABS: Influenza A QL RT-PCR Negative (Negative); Influenza B QL RT-PCR Negative (Negative); RSV RNA, RT-PCR Negative (Negative); SARS-CoV-2 RNA PCR Negative
[2022-05-15 07:25] VITALS: BP 143/94; PULSE 103; RESP 30; TEMP 38.2; O2SAT 100
--- NOTE | 2022-05-15 07:43 | ED.FEVER ---
HPI - Fever General Chief Complaint: Fever Stated Complaint: fever Time Seen by Provider: 05/15/22 07:30 History of Present Illness HPI Narrative: 36-year-old female presented to the emergency department for evaluation of of headache with associated nausea and diarrhea that started yesterday. Patient states she did not receive her COVID or flu vaccine. Patient denies any chest pain does report some shortness of breath. Patient reports she is having some vaginal bleeding but is currently menstruating. Patient is reported past medical history of ovarian cyst depression and anxiety. Related Data Home Medications Medication Instructions Recorded Confirmed clonazepam 1 mg tablet 1 mg PO TID 12/21/20 01/23/22 sertraline 100 mg tablet 100 mg PO DAILY 12/21/20 01/23/22 Allergies Allergy/AdvReac Type Severity Reaction Status Date / Time metoclopramide AdvReac Intermediate HALLUCINATI Verified 05/15/22 07:44 ONS tramadol AdvReac Mild Confusion Verified 05/15/22 07:44 Review of Systems Review of Systems: CONSTITUTIONAL: Body aches fatigue EYES: Denies visual changes, redness, or discharge. ENT: Denies rhinorrhea, congestion, sore throat, or otalgia. CARDIOVASCULAR: Denies chest pain, palpitations, or edema. RESPIRATORY: Cough and shortness of breath GASTROINTESTINAL: Nausea and diarrhea GENITOURINARY: Denies dysuria or hematuria. SKIN: Denies rash or itching. MUSCULOSKELETAL: Denies back pain, joint pain, or myalgia. NEUROLOGIC: Denies headache, numbness, or weakness. [facility] Past Medical History Medical History Anxiety Depression GERD (gastroesophageal reflux disease) History of ovarian cyst Surgical History Surgical History Hx of section Family History Family History Mother Hypertension Grandparent Hypertension Diabetes mellitus Other Asthma Social History Social History Smoking packs per day: 0.5 Smoking cigarettes per day: 10.0 Smoking status: Current every day smoker Gender identity (if verbalized by the patient): Female Exam Narrative: APPEARANCE: Well appearing, no pain, no distress, well-nourished. HEAD: normocephalic, atraumatic. EYES: PERRLA/EOMI, conjunctivae clear. NOSE: Normal no drainage EARS:TMS clear with good light reflex. THROAT: Pharynx clear, no exudate. NECK: Supple. No adenopathy, no masses. RESPIRATORY: Airway patent, respirations nonlabored. Clear to auscultation bilaterally, no rales, rhonchi, wheezing. CARDIOVASCULAR: Regular rate and rhythm without murmurs rubs or gallops. ABDOMINAL: Soft, nontender, nondistended, normal bowel sounds MUSCULOSKELETAL: Moves all extremities. Strength/ROM intact, No edema, No calf tenderness. NEURO: Alert. Cranial nerves II through XII intact. Grossly intact SKIN: Warm, dry. Normal Color Course Course Emergency Course: Patient is afebrile with no leukocytosis. Patient's CMP is normal limits. Patient's UA shows no evidence of urine tract infection. Patient was negative for flu and for COVID. Patient symptoms were improved with rehydration and medications. I suspect a viral etiology for the patient's symptoms when she is describing them. Patient will be provided a butyryl and Tessalon for her cough. Patient was encouraged to take Tylenol or Profen for pain control. Patient was also encouraged of close follow-up with her primary care physician and was also educated on reasons to return to the emergency department. All questions and concerns were addressed. Vital Signs Vital signs: Vital Signs Temperature 100.7 F H 05/15/22 05:54 Pulse Rate 125 H 05/15/22 05:54 Respiratory Rate 30 H 05/15/22 05:54 Blood Pressure 127/86 05/15/22 05:54 Pulse Oximetry 100 05/15/22 05:54 Oxygen Delivery R
[2022-05-15] MEDS: SODIUM CHLORIDE 0.9% IV 1,000 ML 999 ML IV CONT (07:55)
[2022-05-15] MEDS: KETOROLAC 30 MG/ML VIAL (*BKC) IV PUSH (08:07)
[2022-05-15 08:19] LABS: Basophils Percent Auto 0.2 % (0.2-1.2); Eosinophils Percent Auto 0.6 % (0-4.4); Hematocrit 37.3 % (37.0-47.0); Hemoglobin 12.3 g/dL (12.0-15.0); Immature Granulocyte Absolute 0.02 K/mm3 (0.00-0.031); Immature Granulocyte Percent A 0.3 % (0-0.5); Lymphocytes Absolute Auto 0.84 K/mm3 (0.9-3.2); Lymphocytes Percent Auto 12.8 % (18.3-44.2); Mean Corpuscular Hemoglobin 30.7 pg (26-34); Mean Platelet Volume 9.3 fl (7.4-10.4); Monocytes Absolute Auto 0.9 K/mm3 (0.1-0.6); Neutrophils Absolute Auto 4.8 K/mm3 (1.3-6.7); Neutrophils Percent Auto 73.1 % (45.5-73.1); Platelet Count Result 274 k/mm3 (150-375); Red Blood Count 4.01 M/mm3 (4.2-5.4); Red Cell Distribution Width 14.7 % (11.5-14.5); White Blood Count 6.5 K/mm3 (4.5-10.0)
[2022-05-15 08:25] LABS: Alanine Aminotransferase 16 U/L (6-35); Albumin Level 4.7 g/dL (3.5-5.1); Alkaline Phosphatase 74 U/L (38-126); Anion Gap 6 mmol/L (8-16); Aspartate Amino Transferase 24 U/L (14-36); Bilirubin,Total 0.4 mg/dL (0.2-1.3); Blood Urea Nitrogen 7 mg/dL (7-17); Carbon Dioxide 23 mmol/L (22-30); Chloride 104 mmol/L (98-107); Estimated Glomerular Filt Rate > 60; Glucose 92 mg/dL (65-110); Sodium 133 mmol/L (137-145)
[2022-05-15 08:31] LABS: Add Urine Microscopic? YES; Appearance Urine Clear (Clear); Bilirubin Urine Negative (Negative); Blood Urine 1+ (Negative); Color Urine Light Yellow (Yellow); Glucose Urine UA Negative (Negative); Ketones Urine Negative (Negative); Leukocyte Esterase Ur Negative LEU/UL (Negative); Nitrate Urine Negative (Negative); Protein Urine Negative (Negative); Urobilinogen Urine 0.2 mg/dL (<2.0)
[2022-05-15 08:39] LABS: Squamous Epithelial Cell Urine Occasional /hpf (Few)
[2022-05-15] MEDS: fentaNYL CITRATE INJ (*CRX) 100 MCG/2 ML VIAL 50 MCG IV PUSH (09:09)
[2022-05-15 09:30] VITALS: RESP 20; O2SAT 98
[2022-05-15 10:36] VITALS: BP 105/76; PULSE 90; RESP 20; O2SAT 100
== END 2022-05-15 10:38 | disposition home or self-care (01) ==
PROVIDERS: Emergency Medicine; Emergency Provider Emergency Medicine
DX: B34.9 Viral infection, unspecified (principal); R51.9 Headache, unspecified; Z20.822 Contact with and (suspected) exposure to COVID-19; Z28.310 Unvaccinated for COVID-19; K21.9 Gastro-esophageal reflux disease without esophagitis; F41.9 Anxiety disorder, unspecified; F32.A Depression, unspecified; F17.200 Nicotine dependence, unspecified, uncomplicated
CPT/HCPCS: 36415; 80053; 81001; 85025; 87637; 96361; 96365; 96375; 99284; J0131; J1885; J3010; J7030

== ENCOUNTER 2023-01-11 08:12 | Emergency (ER) | payer OTHER, SELFPAY ==
[2023-01-11] VITALS (10 sets, daily range): BP systolic 106–134; BP diastolic 65–99; PULSE 73–88; RESP 13–22; TEMP 36.8; O2SAT 96–100
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
--- NOTE | ~2023-01-11 | XR_ITS ---
EXAMINATION: XR chest 2V DATE: 01/11/2023 10:17 INDICATION: Shortness of breath. TECHNIQUE: Frontal and lateral views of the chest were obtained. COMPARISON: Chest 2 views 04/04/2019 FINDINGS: There is no pneumonia, pleural effusion, or pneumothorax. The heart size is normal. Surgica l clips in the right upper quadrant are likely from cholecystectomy. IMPRESSION: 1. No acute cardiopulmonary disease. Reviewed, dictated and finalized at location A.
[2023-01-11 09:09] LABS: Appearance Urine Clear (Clear); Bilirubin Urine Negative (Negative); Blood Urine Negative (Negative); Color Urine Yellow (Yellow); Glucose Urine UA Negative (Negative); Ketones Urine Trace mg/dL (Negative); Leukocyte Esterase Ur Negative LEU/UL (Negative); Nitrate Urine Negative (Negative); Protein Urine Negative (Negative); Specific Grav Ur 1.019 (1.001-1.035); Urobilinogen Urine 0.2 mg/dL (<2.0); pH Urine 5.5 (5.0-9.0)
[2023-01-11 09:11] LABS: Basophils Percent Auto 0.1 % (0.2-1.2); Eosinophils Absolute Auto 0.2 K/mm3 (0-0.3); Eosinophils Percent Auto 2.1 % (0-4.4); Hematocrit 37.3 % (37.0-47.0); Immature Granulocyte Absolute 0.02 K/mm3 (0.00-0.031); Immature Granulocyte Percent A 0.3 % (0-0.5); Lymphocytes Absolute Auto 3.29 K/mm3 (0.9-3.2); Lymphocytes Percent Auto 42.5 % (18.3-44.2); Mean Corpuscular HGB Conc 32.2 g/dl (32-36); Mean Corpuscular Hemoglobin 28.2 pg (26-34); Mean Corpuscular Volume 87.8 fl (80-100); Mean Platelet Volume 9.6 fl (7.4-10.4); Monocytes Absolute Auto 0.6 K/mm3 (0.1-0.6); Monocytes Percent Auto 8.3 % (2.6-8.5); Neutrophils Absolute Auto 3.6 K/mm3 (1.3-6.7); Neutrophils Percent Auto 46.7 % (45.5-73.1); Platelet Count Result 350 k/mm3 (150-375); Red Blood Count 4.25 M/mm3 (4.2-5.4); Red Cell Distribution Width 16.1 % (11.5-14.5); White Blood Count 7.7 K/mm3 (4.5-10.0)
[2023-01-11 09:17] LABS: Add Urine Microscopic? NO
[2023-01-11 09:18] LABS: Alanine Aminotransferase 14 U/L (6-35); Albumin Level 4.4 g/dL (3.5-5.1); Alkaline Phosphatase 54 U/L (38-126); Anion Gap 8 mmol/L (8-16); Aspartate Amino Transferase 18 U/L (14-36); Bilirubin,Total 0.3 mg/dL (0.2-1.3); Blood Urea Nitrogen 7 mg/dL (7-17); Calcium 9.5 mg/dL (8.4-10.2); Carbon Dioxide 20 mmol/L (22-30); Chloride 107 mmol/L (98-107); Estimated Glomerular Filt Rate > 60; Glucose 87 mg/dL (65-110); Lipase 191 U/L (23-300); Potassium 3.7 mmol/L (3.4-5.0); Sodium 135 mmol/L (137-145)
--- NOTE | 2023-01-11 09:57 | ECG_ITS ---
Measurements Intervals [place] Rate: 71 P: 52 MO: 168 QRS: 25 QRSD: 70 T: 26 QT: 335 QTc: 366 Interpretive Statements SINUS RHYTHM WITH SINUS ARRHYTHMIA NONSPECIFIC T-WAVE ABNORMALITY ABNORMAL ECG COMPARED TO ECG 08/16/2021 01:10:49 NO SIGNIFICANT CHANGE Electronically Signed On 01-11-2023 13:26:19 CDT by Marcos Gonzales M.D.
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
[2023-01-11] MEDS: ACETAMINOPHEN 500 MG TABLET 1000 MG PO (10:26)
[2023-01-11] MEDS: SODIUM CHLORIDE 0.9% IV 1,000 ML 999 ML IV CONT (10:27)
[2023-01-11] MEDS: ONDANSETRON INJ 4 MG/2 ML VIAL IV PUSH (10:27)
[2023-01-11 10:38] LABS: Ethanol < 10 mg/dL (<10)
[2023-01-11 10:44] LABS: NT Pro B Type Natriuretic Pept 35 pg/mL (19.9-100)
[2023-01-11 10:49] LABS: Amphetamine Screen Urine Negative (Negative); Barbiturate Screen Urine Negative (Negative); Benzodiazepines Screen Urine Positive (Negative); Cannabinoid Screen Urine Negative (Negative); Cocaine Screen Urine Negative (Negative); Methadone Screen Urine Negative (Negative); Opiate Screen Urine Negative (Negative); Phencyclidine Screen Urine Negative (Negative)
[2023-01-11 11:00] LABS: Influenza A QL RT-PCR Negative (Negative); Influenza B QL RT-PCR Negative (Negative); SARS-CoV-2 RNA PCR Negative (Negative)
[2023-01-11 11:17] LABS: Thyroid Stimulating Hormone Reflex 0.319 uIU/mL (0.465-4.68)
[2023-01-11] MEDS: KETOROLAC 15 MG/ML VIAL (*BKC) IV PUSH (13:19)
[2023-01-11 14:19] LABS: Free T4 Free Thyroxine 1.12 ng/mL (0.78-2.19)
== END 2023-01-11 15:49 | disposition home or self-care (01) ==
PROVIDERS: General Practice; Emergency Provider Physician Assistant; PCP Emergency Medicine
DX: G47.00 Insomnia, unspecified (principal); F41.9 Anxiety disorder, unspecified; F17.210 Nicotine dependence, cigarettes, uncomplicated; Z20.822 Contact with and (suspected) exposure to COVID-19
CPT/HCPCS: 36415; 70450; 71046; 80053; 80307; 81003; 81025; 83690; 83880; 84439; 84443; 85025; 87636; 93005; 96361; 96374; 96375; 99284; A9270; J1885; J2405; J7030

== ENCOUNTER 2023-02-04 19:32 | Emergency (ER) | payer OTHER, SELFPAY ==
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
--- NOTE | ~2023-02-04 | CT_ITS ---
Noncontrast CT scan of the thoracolumbar spine CLINICAL HISTORY: Back pain TECHNIQUE: Axial noncontrast imaging of the thoracolumbar spine was performed. Sagittal and coronal r eformatted images were constructed. Dose reduction technique was used on this scan by utilizing autom ated exposure control and iterative reconstruction technique. The dose-length product (DLP) was 1913. 21 mGy-cm. Thoracic spine findings: No fracture or dislocation is seen. Vertebral bodies maintain normal height and alignment. Intervertebral disc spaces are well preserved. No significant disc bulge or herniation identified in the thoracic spine. No spinal canal stenosis or cord compression identified. Paravertebral soft tissues are unremarkable. There is mild patchy bibasilar airspace disease noted in the lungs. Lumbar spine findings: There is no fracture or subluxation of the lumbar spine. Vertebral bodies main tain normal height and alignment. Intervertebral disc spaces are well preserved. No significant disc bulge or herniation identified in the lumbar spine. No spinal canal stenosis or d efinite neural foraminal narrowing identified. Paravertebral soft tissues are unremarkable. Impression: No fracture or subluxation of the thoracolumbar spine. Patchy bibasilar pulmonary airspace disease, likely atelectatic change. Correlate clinically for pulm onary edema or pneumonia. Reviewed, dictated and finalized at [facility]. Impression: No fracture or subluxation of the thoracolumbar spine. Patchy bibasilar pulmonary airspace disease, likely atelectatic change. Correla te clinically for pulmonary edema or pneumonia.
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
[2023-02-04 19:47] VITALS: BP 143/96; PULSE 97; RESP 18; TEMP 36.8; O2SAT 100
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
[2023-02-05] MEDS: LIDOCAINE 5% PATCH 1 PATCH TRANSDERM (00:56)
[2023-02-05] MEDS: ACETAMINOPHEN 500 MG TABLET 1000 MG PO (00:56)
[2023-02-05 00:57] VITALS: BP 133/98; PULSE 89; RESP 18; O2SAT 100
[2023-02-05 01:02] VITALS: BP 134/99; PULSE 87; RESP 20; O2SAT 100
[2023-02-05 01:37] VITALS: BP 120/90; PULSE 90; RESP 19; O2SAT 100
[2023-02-05 03:02] VITALS: BP 111/58; PULSE 92; RESP 19; O2SAT 98
[2023-02-05 04:00] VITALS: BP 114/83; PULSE 93; RESP 20; O2SAT 97
[2023-02-05] MEDS: HYDROcodone/acetaminophen (*CRX) 5-325 MG TABLET 1 TAB PO (04:07)
== END 2023-02-05 04:41 | disposition home or self-care (01) ==
PROVIDERS: Emergency Provider Emergency Medicine; PCP Emergency Medicine
DX: M54.2 Cervicalgia (principal); M54.50 Low back pain, unspecified; V43.52XA Car driver injured in collision with other type car in traffic accident, initial encounter; F17.210 Nicotine dependence, cigarettes, uncomplicated; F41.9 Anxiety disorder, unspecified; F32.A Depression, unspecified; K21.9 Gastro-esophageal reflux disease without esophagitis
CPT/HCPCS: 70450; 72125; 72128; 72131; 99284; A9270; L0140

== ENCOUNTER 2023-04-03 14:25 | Emergency (ER) | payer OTHER, SELFPAY ==
--- NOTE | ~2023-04-03 | CT_ITS ---
EXAMINATION: CT brain wo con INDICATION: Headache COMPARISON: 02/04/2023 TECHNIQUE: Standard unenhanced head CT. The dose-length product (DLP) was 605.33 mGy-cm. The mA was a djusted according to patient size. Iterative reconstruction technique was employed. FINDINGS: No intracranial hemorrhage, acute infarction, or abnormal mass lesion. The ventricles are n ormal. No abnormal mass effect or midline shift. The hunter-white matter differentiation is normal. The basal cisterns are patent. The orbits are normal. The paranasal sinuses, mastoids and calvarium are normal. IMPRESSION: 1. No acute intracranial abnormality. Reviewed, dictated and finalized at location L. PROGRAMER
--- NOTE | ~2023-04-03 | XR_ITS ---
EXAM: XR elbow RT min 3V DATE: 04/03/2023 15:15 HISTORY: fall . COMPARISON: None available. FINDINGS: Normal mineralization. No fracture or dislocation. No lytic or blastic lesion. Joint space s are maintained. No erosion or periosteal change. Soft tissues within normal limits. IMPRESSION: No acute osseous finding in the right elbow. Reviewed, dictated and finalized at location K. CHEMICAL DEPENDENCY
--- NOTE | ~2023-04-03 | CT_ITS ---
EXAMINATION: CT cervical spine wo con DATE: 04/03/2023 16:05 INDICATION: fall TECHNIQUE: Computed tomography (CT) of the cervical spine was performed without intravenous contrast. Automated exposure control and iterative reconstruction technique were employed. The dose-length pro duct was 547.44 mGy-cm. COMPARISON: 02/04/23. FINDINGS: Vertebral Body Alignment: Intact. Reversal of the cervical lordosis. Craniocervical and atlantoaxial alignment: No significant degenerative change. Alignment intact. Osseous structures/fracture: No evidence of a lytic or blastic process in the visualized spine. No e vidence of acute fracture. Cervical soft tissues: The paraspinal soft tissues planes are maintained. Degenerative changes: No significant degenerative changes. IMPRESSION: No acute fracture or traumatic malalignment in the cervical spine. Reviewed, dictated and finalized at location K. [employer]
--- NOTE | ~2023-04-03 | CT_ITS ---
EXAMINATION: CT lumbar spine wo con DATE: 04/03/2023 16:05 INDICATION: fall . TECHNIQUE: Computed tomography (CT) of the lumbar spine was performed without intravenous contrast. A utomated exposure control and iterative reconstruction technique were employed. The dose-length produ ct was 1308.42 mGy-cm. COMPARISON: CT abdomen pelvis 05/29/19. FINDINGS: 5 nonrib-bearing lumbar-type vertebral bodies. Pedicles intact. Normal vertebral body align ment. Vertebral body heights preserved. Disc spaces maintained. Normal facets and posterior elements. IMPRESSION: No acute fracture or traumatic malalignment in the lumbar spine. Reviewed, dictated and finalized at location K. DIPPER
--- NOTE | ~2023-04-03 | XR_ITS ---
EXAMINATION: XR chest 1V portable INDICATION: Pain after fall TECHNIQUE: Portable AP chest at 1536 hours COMPARISON: None available FINDINGS: The lungs are free of acute opacities. No pleural effusion or pneumothorax. The cardiomedia stinal silhouette is normal. IMPRESSION: 1. No acute cardiopulmonary abnormality. Reviewed, dictated and finalized at location L. NDER INSPECTOR
--- NOTE | ~2023-04-03 | CT_ITS ---
EXAMINATION: CT pelvis wo con DATE: 04/03/2023 16:06 INDICATION: Fall. TECHNIQUE: Computed tomography (CT) of the pelvis was performed without intravenous contrast. Automat ed exposure control and iterative reconstruction technique were employed. The dose-length product was 818.25 mGy-cm. COMPARISON: CT ABD/PELVIS 05/29/19 FINDINGS: No fracture or dislocation. Normal mineralization. Lower lumber spine unremarkable. Hips brittani ints aligned. Normal pelvic structures. IMPRESSION: No acute osseous finding in the pelvis. Reviewed, dictated and finalized at location K. ESS RACING HANDICAPPER
--- NOTE | ~2023-04-03 | XR_ITS ---
EXAM: XR shoulder RT min 2V DATE: 04/03/2023 15:15 HISTORY: fall . COMPARISON: None available. FINDINGS: Normal mineralization. No fracture or dislocation. No lytic or blastic lesion. Joint space s are maintained. No erosion or periosteal change. Soft tissues within normal limits. IMPRESSION: No acute osseous finding in the right shoulder. Reviewed, dictated and finalized at location K. ATRIST
[2023-04-03 14:27] VITALS: BP 137/90; PULSE 102; RESP 20; TEMP 37.2; O2SAT 99
--- NOTE | 2023-04-03 15:31 | ED.GENADULT ---
HPI - General Adult General Chief complaint: Fall Stated complaint: FALL Time Seen by Provider: 04/03/23 14:54 History of Present Illness HPI narrative: Lawrence Salcedo is a 37 y/o female who presents via EMS from home. She reports of having a mechanical ground level fall today at around 1400 with positive LOC> She reports that she was taking her dogs out and one tripped her and the next thing she knew she was getting taken away by EMS. Family was there and saw the fall/ unsure of how long the LOC lasted Patient complains of pain all over her body / with a lot of pain to her right side. Denies numbness /tingling anywhere / does not take any blood thinners Related Data Home Medications Medication Instructions Recorded Confirmed clonazepam 1 mg tablet 1 mg PO TID 12/21/20 01/23/22 sertraline 100 mg tablet 100 mg PO DAILY 12/21/20 01/23/22 Allergies Allergy/AdvReac Type Severity Reaction Status Date / Time metoclopramide AdvReac Intermediate HALLUCINATI Verified 04/03/23 14:36 ONS tramadol AdvReac Mild Confusion Verified 04/03/23 14:36 Review of Systems Review of Systems: CONSTITUTIONAL: Denies fever, chills, or sweats. EYES: Denies visual changes, redness, or discharge. ENT: Denies rhinorrhea, congestion, sore throat, or otalgia. CARDIOVASCULAR: Denies chest pain, palpitations, or edema. RESPIRATORY: Denies cough or dyspnea. GASTROINTESTINAL: Denies abdominal pain, nausea, vomiting, or diarrhea. GENITOURINARY: Denies dysuria or hematuria. SKIN: Denies rash or itching. MUSCULOSKELETAL: reports of pain all over body from the fall today NEUROLOGIC: Denies headache, numbness, dizziness, or weakness. PSYCHIATRIC: Denies anxiety or depression. [facility] Past Medical History Medical History Anxiety Depression GERD (gastroesophageal reflux disease) History of ovarian cyst Surgical History Surgical History Hx of section Family History Family History Mother Hypertension Grandparent Hypertension Diabetes mellitus Other Asthma Social History Social History Smoking packs per day: 0.5 Smoking cigarettes per day: 10.0 Smoking status: Current every day smoker Substance use: never Gender identity (if verbalized by the patient): Female Exam Narrative: GENERAL: Well-appearing, well-nourished, and in no acute distress. HEAD: Normocephalic, atraumatic. EYES: PERRLA and EOMI. ENT: Nares clear, no rhinorrhea or epistaxis. Mucous membranes moist. Oropharynx without tonsillar hypertrophy exudate or other lesions. NECK: Supple. No adenopathy or masses. No carotid bruits or JVD CHEST: Clear to auscultation. No respiratory distress. No wheezes rales or rhonchi HEART: Regular rate and rhythm. No murmur heard. Normal peripheral pulses. ABDOMEN: Soft, nontender, nondistended, normal active bowel sounds. EXTREMITIES: range of motion splinted due to pain . No edema. SKIN: Warm, dry, no rash. NEURO: No focal deficits. Alert and oriented x3. PSYCH: Normal mood and affect. Course Vital Signs Vital signs: Vital Signs Temperature 37.2 C 04/03/23 14:27 Pulse Rate 102 H 04/03/23 14:27 Respiratory Rate 20 04/03/23 14:27 Blood Pressure 137/90 04/03/23 14:27 Pulse Oximetry 99 04/03/23 14:27 Oxygen Delivery Room Air 04/03/23 14:27 Temperature 37.2 C 04/03/23 14:27 Pulse Rate 102 H 04/03/23 14:27 Respiratory Rate 20 04/03/23 14:27 Blood Pressure 137/90 04/03/23 14:27 Pulse Oximetry 99 04/03/23 14:27 Oxygen Delivery Room Air 04/03/23 14:27 Medical Decision Making MDM Narrative Medical decision making narrative: Patient arrives via EMS from home after a mechanical ground level fall today with +LOC she is alert and oriented X 4 CC in
[2023-04-03] MEDS: ONDANSETRON INJ 4 MG/2 ML VIAL IV PUSH (15:47)
[2023-04-03] MEDS: MORPHINE SULFATE (*CRX) 4 MG/ML INJ IV PUSH (15:47)
[2023-04-03 15:52] LABS: Eosinophils Absolute Auto 0.2 K/mm3 (0-0.3); Eosinophils Percent Auto 2.4 % (0-4.4); Hemoglobin 10.4 g/dL (12.0-15.0); Immature Granulocyte Absolute 0.02 K/mm3 (0.00-0.031); Immature Granulocyte Percent A 0.3 % (0-0.5); Lymphocytes Percent Auto 29.3 % (18.3-44.2); Mean Corpuscular HGB Conc 31.5 g/dl (32-36); Mean Corpuscular Hemoglobin 27.4 pg (26-34); Mean Corpuscular Volume 87.1 fl (80-100); Mean Platelet Volume 8.9 fl (7.4-10.4); Monocytes Absolute Auto 0.6 K/mm3 (0.1-0.6); Monocytes Percent Auto 8.1 % (2.6-8.5); Neutrophils Absolute Auto 4.5 K/mm3 (1.3-6.7); Neutrophils Percent Auto 59.9 % (45.5-73.1); Platelet Count Result 389 k/mm3 (150-375); Red Blood Count 3.79 M/mm3 (4.2-5.4); Red Cell Distribution Width 17.1 % (11.5-14.5); White Blood Count 7.5 K/mm3 (4.5-10.0)
[2023-04-03 15:58] LABS: Appearance Urine Clear (Clear); Bacteria Urine Rare /hpf; Bilirubin Urine Negative (Negative); Blood Urine Negative (Negative); Color Urine Yellow (Yellow); Glucose Urine UA Negative (Negative); Ketones Urine Negative (Negative); Leukocyte Esterase Ur Trace LEU/UL (Negative); Nitrate Urine Negative (Negative); Non Pathogenic Casts 0-2; Protein Urine Negative (Negative); RBC Urine 0-2 /hpf (0-2); Specific Grav Ur 1.009 (1.001-1.035); Squamous Epithelial Cell Urine Occasional /hpf (Few); Urobilinogen Urine 0.2 mg/dL (<2.0); WBC Urine 0-5 /hpf; pH Urine 6.5 (5.0-9.0)
[2023-04-03 16:02] LABS: Anion Gap 5 mmol/L (8-16); Blood Urea Nitrogen 9 mg/dL (7-17); Calcium 9.1 mg/dL (8.4-10.2); Carbon Dioxide 22 mmol/L (22-30); Chloride 109 mmol/L (98-107); Estimated Glomerular Filt Rate > 60; Glucose 88 mg/dL (65-110); Sodium 136 mmol/L (137-145)
[2023-04-03 16:04] LABS: Add Urine Microscopic? YES
[2023-04-03] MEDS: KETOROLAC 30 MG/ML VIAL (*BKC) IV PUSH (17:37)
[2023-04-03 18:20] VITALS: BP 128/83; PULSE 71; RESP 15; O2SAT 99
== END 2023-04-03 18:22 | disposition home or self-care (01) ==
PROVIDERS: Emergency Provider Nurse Practitioner Family; PCP Emergency Medicine
DX: M25.511 Pain in right shoulder (principal); M25.551 Pain in right hip; M54.2 Cervicalgia; M54.50 Low back pain, unspecified; F17.210 Nicotine dependence, cigarettes, uncomplicated; W01.0XXA Fall on same level from slipping, tripping and stumbling without subsequent striking against object, initial encounter
CPT/HCPCS: 36415; 70450; 71045; 72125; 72131; 72192; 73030; 73080; 80048; 81001; 81025; 85025; 96374; 96375; 99284; J1885; J2270; J2405

== ENCOUNTER 2023-09-01 00:07 | Emergency (ER) | payer OTHER, SELFPAY ==
[2023-09-01 00:13] VITALS: BP 122/88; PULSE 89; RESP 16; TEMP 36.4; O2SAT 95
[2023-09-01 02:32] VITALS: BP 125/98; PULSE 77; PULSE 86; RESP 18; O2SAT 100
[2023-09-01 02:33] VITALS: BP 125/98; PULSE 69; RESP 12; O2SAT 100
[2023-09-01 02:46] VITALS: BP 128/82; PULSE 84; RESP 13; O2SAT 100
--- NOTE | 2023-09-01 02:48 | ED.GENADULT ---
HPI - General Adult General Chief complaint: Unspecified Stated complaint: nosebleed off and on for two weeks, SOB for days Time Seen by Provider: 09/01/23 02:24 History of Present Illness HPI narrative: Patient is a 37-year-old female who presents to the emergency department this evening complaining of intermittent right-sided nose bleeds for the past 2 weeks. Patient states that although she has been able to control the nose bleeds at home, it has been occurring frequently almost daily for the past 2 weeks which is disrupting her life. Patient also states that she has been having ear pressure in both of her ears and some headaches which she was not sure if they are related to her nose bleeds. She denies any recent upper respiratory illness, any fevers or chills, and any sudden worst headache of her life sensation. Patient has no additional concerns or symptoms at this time. Patient denies any blood thinner use. There are no other modifying, alleviating, or precipitating factors. Related Data Home Medications Medication Instructions Recorded Confirmed clonazepam 1 mg tablet 1 mg PO TID 12/21/20 01/23/22 sertraline 100 mg tablet 100 mg PO DAILY 12/21/20 01/23/22 Allergies Allergy/AdvReac Type Severity Reaction Status Date / Time metoclopramide AdvReac Intermediate HALLUCINATI Verified 09/01/23 02:34 ONS tramadol AdvReac Mild Confusion Verified 09/01/23 02:34 Review of Systems Review of Systems: All systems are reviewed and are negative unless stated otherwise in the HPI. [facility] Past Medical History Medical History Anxiety Depression GERD (gastroesophageal reflux disease) History of ovarian cyst Surgical History Surgical History Hx of section Family History Family History Mother Hypertension Grandparent Hypertension Diabetes mellitus Other Asthma Social History Social History Smoking packs per day: 0.5 Smoking cigarettes per day: 10.0 Smoking status: Current every day smoker Substance use: never Gender identity (if verbalized by the patient): Female Exam Narrative: General: Alert, awake, afebrile, in no acute distress. HEENT: PERRL, no rhinorrhea, no post nasal drip, oropharynx clear, small area in the right nostril which appears erythematous, no active epistaxis, bilateral bulging tympanic membranes without erythema. Neck: Trachea midline, no JVD, no lymphadenopathy. Cardiovascular: Regular rate and rhythm, no murmurs, rubs or gallops, no peripheral edema. Respiratory: Clear to auscultation bilaterally, no tachypnea, no wheezing, no rhonchi, no rubs, no respiratory distress. Abdomen: Soft, nontender, nondistended, no rebound, no guarding, no peritoneal signs. Musculoskeletal: No joint swelling or deformity, normal muscle tone. Skin: No rashes or petechia, no signs of infection. Psychiatric: Alert and oriented, normal behavior and judgment for situation. Neurological: Alert and oriented to person, place, and time. Follows all commands. No focal deficits, speech is clear and fluent. Course Vital Signs Vital signs: Vital Signs Temperature 97.5 F L 09/01/23 00:13 Pulse Rate 89 09/01/23 00:13 Respiratory Rate 16 09/01/23 00:13 Blood Pressure 122/88 09/01/23 00:13 Pulse Oximetry 95 09/01/23 00:13 Temperature 97.5 F L 09/01/23 00:13 Pulse Rate 77 09/01/23 02:32 Respiratory Rate 18 09/01/23 02:32 Blood Pressure 125/98 H 09/01/23 02:32 Pulse Oximetry 100 09/01/23 02:32 Medical Decision Making [facility] Narrative Medical decision making narrative: The patient was evaluated by myself in the emergency department. History is obtained from patient who is an independent historian and physical exam was performed. Director Music
[2023-09-01 03:01] VITALS: BP 132/84; PULSE 86; RESP 17; O2SAT 100
== END 2023-09-01 03:10 | disposition home or self-care (01) ==
PROVIDERS: Emergency Provider Emergency Medicine; PCP Emergency Medicine
DX: R04.0 Epistaxis (principal); H93.8X3 Other specified disorders of ear, bilateral; K21.9 Gastro-esophageal reflux disease without esophagitis; F41.9 Anxiety disorder, unspecified; F32.A Depression, unspecified; F17.210 Nicotine dependence, cigarettes, uncomplicated
CPT/HCPCS: 30901; 99283

== ENCOUNTER 2024-03-19 17:52 | Emergency (ER) | payer OTHER, SELFPAY ==
--- NOTE | ~2024-03-19 | CT_ITS ---
EXAMINATION: CT soft tissue neck w con DATE: 03/19/2024 21:36 INDICATION: Abscess with dental pain and swelling TECHNIQUE: Computed tomography (CT) of the neck was performed with 75 mL Omnipaque-350 intravenous co ntrast. Automated exposure control and iterative reconstruction technique were employed. The dose-ana gth product was 476.48 mGy-cm. COMPARISON: None FINDINGS: Dental disease with large expansile periapical erosion at the right maxillary lateral incisor which r emodels the veins in the buccal and lingual cortices. There may be erosion to the cortex along the li ngual surface along the anterior hard palate. No evident associated subperiosteal abscess. Additional dental disease with large and dental caries involving the entire crowns of a partially imp acted posterior most left mandibular molar. The more anterior left molars are absent. Additional larg e erosion involving the posterior most left maxillary molar with associated small periapical lucency. There are a couple additional smaller dental caries with right mandibular first molar and the right mandibular lateral incisor. Orbits are normal. Paranasal sinuses, mastoid air cells and middle ear cavities are clear. Normal siz ed lymph nodes in the head and neck. The bilateral parotid and submandibular glands as well as the th yroid gland are unremarkable. Visualized upper lungs and superior mediastinum are unremarkable. Cervi jude spine is also unremarkable. IMPRESSION: 1. Dental disease most notable for a large expansile periapical erosion associated with the right max illary lateral incisor but no evident soft tissues abscess. Reviewed, dictated and finalized at location A. IMPRESSION: 1. Dental disease most notable for a large expansile periapical erosion associa barbie with the right maxillary lateral incisor but no evident soft tissues absces s.
[2024-03-19 17:53] VITALS: BP 137/99; PULSE 100; RESP 17; TEMP 36.4; O2SAT 100
--- NOTE | 2024-03-19 18:29 | ED_ITS ---
HPI - Dental/Oral General Chief complaint: Dental/Oral <Naomy Hdez PA-C - Last Filed: 03/21/24 17:21> Stated complaint: dental abscess <Naomy Hdez PA-C - Last Filed: 03/21/24 17:21> Time Seen by Provider: 03/19/24 18:30 <Naomy Hdez PA-C - Last Filed: 03/21/24 17:21> Focused HPI: This is a 38 year old female that presents to the ER for dentalgia. Ongoing over the last week. Worsening over the last couple of days. Reports she has an appointment with her dentist tomorrow, but was concerned she has an abscess. GENERAL: Well-appearing, well-nourished, and in no acute distress. HEAD: Normocephalic, atraumatic. ENT: Poor dentition. Swelling, tender to palpation at the left lower gum line. Tender anterior cervical adenopathy CHEST: Clear to auscultation. ?No respiratory distress. HEART: Regular rate and rhythm.? NEURO: ?Alert and oriented x3. Patient screened in triage and initial orders placed.? ?Additional care and disposition to be based upon?diagnostic testing and treatment. <Naomy Hdez PA-C - Last Filed: 03/21/24 17:21> Focused HPI: This is a 38 year old female that presents to the ER for dentalgia. Ongoing over the last week. Worsening over the last couple of days. Reports she has an appointment with her dentist tomorrow, but was concerned she has an abscess. GENERAL: Well-appearing, well-nourished, and in no acute distress. HEAD: Normocephalic, atraumatic. ENT: Poor dentition. Swelling, tender to palpation at the left lower gum line. Tender anterior cervical adenopathy CHEST: Clear to auscultation. ?No respiratory distress. HEART: Regular rate and rhythm.? NEURO: ?Alert and oriented x3. Patient screened in triage and initial orders placed.? ?Additional care and disposition to be based upon?diagnostic testing and treatment. Agree with triage assessment. Patient has an appointment for a right-sided tooth extraction tomorrow with her dentist and she called her dentist today and when she reported that she was having swelling to her left side the prompted her to come to the emergency department for further evaluation. She denies any additional symptoms including any fevers or chills. <Jana Jefferson MD - Last Filed: 03/19/24 22:10> Related Data Home medications: Home Medications Medication Instructions Recorded Confirmed clonazepam 1 mg tablet 1 mg PO TID 12/21/20 01/23/22 sertraline 100 mg tablet 100 mg PO DAILY 12/21/20 01/23/22 <Naomy Hdez PA-C - Last Filed: 03/21/24 17:21> Allergies/adverse reactions: Allergies Allergy/AdvReac Type Severity Reaction Status Date / Time metoclopramide AdvReac Intermediate HALLUCINATI Verified 09/01/23 02:34 ONS tramadol AdvReac Mild Confusion Verified 09/01/23 02:34 <Naomy Hdez PA-C - Last Filed: 03/21/24 17:21> Review of Systems Review of Systems: All systems are reviewed and are negative unless stated otherwise in the HPI. <Jana Jefferson MD - Last Filed: 03/19/24 22:10> PMFSH Past Medical History Medical History: Medical History Anxiety Depression GERD (gastroesophageal reflux disease) History of ovarian cyst <Naomy Hdez PA-C - Last Filed: 03/21/24 17:21> Surgical History Surgical History: Surgical History Hx of section <Naomy Hdez PA-C - Last Filed: 03/21/24 17:21> Family History Family History: Family History Mother Hypertension Grandparent Hypertension Diabetes mellitus Other Asthma <Naomy Hdez PA-C - Last Filed: 03/21/24 17:21> Social History Social History: Social History Smoking packs per day: 0.5 Smoking cigarettes per day: 10.0 Smoking status: Current every day smoker Substance use: never Gender identity (if verbalized by the patient): Female <Naomy Hdez PA-C - Last Filed: 03/21/24 17:21> Exam Narrative: General: Alert, awake, afebrile, in no acute distress. HEENT: PERRL, no rhinorrhea, no post nasal drip, oropharynx clear, No left- sided dental abscess visualized on examination, no significant swelling appreciated. Cardiovascular: Regular rate and rhythm, no murmurs, rubs or gallops, no peripheral edema. Respiratory: Clear to auscultation bilaterally, no tachypnea, no wheezing, no rhonchi, no rubs, no respiratory distress. Abdomen: Soft, nontender, nondistended, no rebound, no guarding, no peritoneal signs. Musculoskeletal: No joint swelling or deformity, normal muscle tone. Skin: No rashes or petechia, no signs of infection. Neurological: Alert and oriented to person, place, and time. Follows all commands. No focal deficits, speech is clear and fluent. <Jana Jefferson MD - Last Filed: 03/19/24 22:10> Course Vital Signs Vital signs: Vital Signs Temperature 97.6 F 03/19/24 17:53 Pulse Rate 100 03/19/24 17:53 Respiratory Rate 17 03/19/24 17:53 Blood Pressure 137/99 H 03/19/24 17:53 Pulse Oximetry 100 03/19/24 17:53 Oxygen Delivery Room Air 03/19/24 17:53 Temperature 97.6 F 03/19/24 17:53 Pulse Rate 89 03/19/24 22:16 Respiratory Rate 18 03/19/24 22:16 Blood Pressure 133/94 H 03/19/24 22:16 Pulse Oximetry 100 03/19/24 22:16 Oxygen Delivery Room Air 03/19/24 17:53 <Naomy Hdez PA-C - Last Filed: 03/21/24 17:21> Vital Signs Temperature 97.6 F 03/19/24 17:53 Pulse Rate 100 03/19/24 17:53 Respiratory Rate 17 03/19/24 17:53 Blood Pressure 137/99 H 03/19/24 17:53 Pulse Oximetry 100 03/19/24 17:53 Oxygen Delivery Room Air 03/19/24 17:53 Temperature 97.6 F 03/19/24 17:53 Pulse Rate 89 03/19/24 22:16 Respiratory Rate 18 03/19/24 22:16 Blood Pressure 133/94 H 03/19/24 22:16 Pulse Oximetry 100 03/19/24 22:16 Oxygen Delivery Room Air 03/19/24 17:53 <Jana Jefferson MD - Last Filed: 03/19/24 22:10> MDM - Dental/Oral MDM Narrative Medical decision making narrative: The patient was evaluated by myself in the emergency department. History is obtained from patient who is an independent historian and physical exam was performed. External medical records were reviewed at this time. IV was established and pertinent tests were ordered. Patient was administered 2 mg of IV morphine for pain and 4 mg of IV Zofran for nausea. Laboratory results obtained revealing and ESR of 39 otherwise unremarkable. Imaging studies obtained included CT soft tissue neck with contrast which was independently interpreted by me revealing no evidence of abscess, dental disease, which is pending final radiology interpretation. Patient was informed of these findings at bedside and 1 that she does follow-up with her dentist for her schedule appointment tomorrow. Patient continues to have pain at this time she was administered 0.5 mg of IV Dilaudid. Patient states that she will not be driving home and she has a ride. Differential diagnosis considerations include dental caries versus dental abscess. Comorbidities impacting this visit include poor dental hygiene and diffuse dental disease. I have evaluated and discussed social determinants of health with the patient that could potentially impact subsequent diagnosis and treatment plans. On repeat assessment of the patient, reevaluation revealed that the patient is doing well and is in no acute distress. Patient symptoms have improved since she arrived to our emergency department. Repeat vital signs were all reviewed and noted to be stable. Differential diagnosis and treatment plan were discussed with the patient at bedside. Patient agrees with discussion and after shared medical decision making agrees with discharge. All questions were answered to the patient's satisfaction. Patient will follow up with Her dentist as scheduled for her upcoming appointment. She was provided with a script for [place] 8 pills to use as needed until she gets her problematic teeth pulled. Patient was provided with strict return precautions and instructed to return to the emergency department if any new or worsening symptoms develop. The patient was discharged in stable condition. <Jana Jefferson MD - Last Filed: 03/19/24 22:10> Lab Data Result diagrams: 03/19/24 19:49 03/19/24 20:12 <Naomy Hdez PA-C - Last Filed: 03/21/24 17:21> Labs: Lab Results 03/19/24 03/19/24 Range/Units 19:49 20:12 WBC 7.7 (4.5-10.0) K/mm3 RBC 4.08 L (4.2-5.4) M/mm3 Hgb 11.8 L (12.0-15.0) g/dL Hct 36.0 L (37.0-47.0) % MCV 88.2 (80-100) fl MCH 28.9 (26-34) pg MCHC 32.8 (32-36) g/dl RDW 16.9 H (11.5-14.5) % Plt Count 368 (150-375) k/mm3 MPV 9.7 (7.4-10.4) fl Immature Gran % (Auto) 0.3 (0-0.5) % Neut % (Auto) 54.9 (45.5-73.1) % Lymph % (Auto) 35.8 (18.3-44.2) % [place] % (Auto) 6.5 (2.6-8.5) % Eos % (Auto) 2.2 (0-4.4) % Baso % (Auto) 0.3 (0.2-1.2) % Lymph # (Auto) 2.76 (0.9-3.2) K/mm3 [place] # (Auto) 0.5 (0.1-0.6) K/mm3 Eos # (Auto) 0.2 (0-0.3) K/mm3 Baso # (Auto) 0.0 (0.0-0.1) K/mm3 Abs Immat Gran (auto) 0.02 (0.00-0.031) K/mm3 Absolute Neuts (auto) 4.3 (1.3-6.7) K/mm3 Absolute Nucleated RBC 0.000 (0.0-0.012) K/mm3 Nucleated RBC % 0.0 (0.0-0.2) % ESR 39 H (0-20) mm/hr Sodium 136 L (137-145) mmol/L Potassium 3.8 (3.4-5.0) mmol/L Chloride 111 H (98-107) mmol/L Carbon Dioxide 19 L (22-30) mmol/L Anion Gap 6 (4-12) mmol/L BUN 8 (7-17) mg/dL Creatinine 0.70 (0.7-1.0) mg/dL Estim Creat Clear Calc 95 ml/min Estimated GFR > 60 (59 - ) Glucose 84 (65-110) mg/dL Calcium 9.2 (8.4-10.2) mg/dL C-Reactive Protein 0.9 (<1.0) mg/dL <Naomy Hdez PA-C - Last Filed: 03/21/24 17:21> Lab Results 03/19/24 03/19/24 Range/Units 19:49 20:12 WBC 7.7 (4.5-10.0) K/mm3 RBC 4.08 L (4.2-5.4) M/mm3 Hgb 11.8 L (12.0-15.0) g/dL Hct 36.0 L (37.0-47.0) % MCV 88.2 (80-100) fl MCH 28.9 (26-34) pg MCHC 32.8 (32-36) g/dl RDW 16.9 H (11.5-14.5) % Plt Count 368 (150-375) k/mm3 MPV 9.7 (7.4-10.4) fl Immature Gran % (Auto) 0.3 (0-0.5) % Neut % (Auto) 54.9 (45.5-73.1) % Lymph % (Auto) 35.8 (18.3-44.2) % [place] % (Auto) 6.5 (2.6-8.5) % Eos % (Auto) 2.2 (0-4.4) % Baso % (Auto) 0.3 (0.2-1.2) % Lymph # (Auto) 2.76 (0.9-3.2) K/mm3 [place] # (Auto) 0.5 (0.1-0.6) K/mm3 Eos # (Auto) 0.2 (0-0.3) K/mm3 Baso # (Auto) 0.0 (0.0-0.1) K/mm3 Abs Immat Gran (auto) 0.02 (0.00-0.031) K/mm3 Absolute Neuts (auto) 4.3 (1.3-6.7) K/mm3 Absolute Nucleated RBC 0.000 (0.0-0.012) K/mm3 Nucleated RBC % 0.0 (0.0-0.2) % ESR 39 H (0-20) mm/hr Sodium 136 L (137-145) mmol/L Potassium 3.8 (3.4-5.0) mmol/L Chloride 111 H (98-107) mmol/L Carbon Dioxide 19 L (22-30) mmol/L Anion Gap 6 (4-12) mmol/L BUN 8 (7-17) mg/dL Creatinine 0.70 (0.7-1.0) mg/dL Estim Creat Clear Calc 95 ml/min Estimated GFR > 60 (59 - ) Glucose 84 (65-110) mg/dL Calcium 9.2 (8.4-10.2) mg/dL C-Reactive Protein 0.9 (<1.0) mg/dL <Jana Jefferson MD - Last Filed: 03/19/24 22:10> Imaging Data Radiologist's impression: ITS Impressions Soft Tissue Neck CT 03/19/24 21:39 IMPRESSION: 1. Dental disease most notable for a large expansile periapical erosion associated with the right maxillary lateral incisor but no evident soft tissues abscess. <Naomy Hdez PA-C - Last Filed: 03/21/24 17:21> Discharge Plan Discharge Clinical Impression: Dental caries, Toothache <Naomy Hdez PA-C - Last Filed: 03/21/24 17:21> Patient Disposition: Home, Self-Care <Naomy Hedz PA-C - Last Filed: 03/21/24 17:21> Condition: Improved <Naomy Hdez PA-C - Last Filed: 03/21/24 17:21> Instructions: Antibiotic Form, Toothache (ED) <Naomy Hdez PA-C - Last Filed: 03/21/24 17:21> Additional Instructions: Please follow-up with your dentist as scheduled for your upcoming appointment tomorrow. Return to the ED if any new or worsening symptoms dev elop. <Naomy Hdez PA-C - Last Filed: 03/21/24 17:21> Prescriptions: New hydrocodone-acetaminophen 5-325 mg tablet 1 tablet PO Q8H PRN (Reason: pain) Qty: 8 0RF No Action sertraline 100 mg tablet 100 mg PO DAILY clonazepam 1 mg tablet 1 mg PO TID melatonin 5 mg tablet 5 mg PO HS PRN (Reason: sleep) Qty: 10 0RF tramadol 50 mg tablet 50 mg PO Q6H MDD 4 tabs PRN (Reason: pain) Qty: 14 0RF tramadol 50 mg tablet 50 mg PO Q6H MDD 4 tabs PRN (Reason: pain) Qty: 14 0RF hydrocodone-acetaminophen 5-325 mg tablet 1 tablet PO Q6H PRN (Reason: pain) Qty: 20 0RF hydrocodone-acetaminophen 5-325 mg tablet 1 tablet PO Q4H PRN (Reason: pain) Qty: 20 0RF amoxicillin 875 mg tablet 875 mg PO Q12H 7 Days Qty: 14 0RF albuterol sulfate 90 mcg/actuation HFA aerosol inhaler 1 puff inhalation QID PRN (Reason: shortness of breath or wheezing) Qty: 6.7 0RF benzonatate 100 mg capsule 100 mg PO BID PRN (Reason: cough) Qty: 14 0RF naproxen 500 mg tablet 500 mg PO BID PRN (Reason: pain) Qty: 28 0RF cyclobenzaprine 10 mg tablet 10 mg PO TID PRN (Reason: muscle spasm) Qty: 30 0RF <Naomy Hdez PA-C - Last Filed: 03/21/24 17:21> Follow-up/Referrals: Zeyad Lazaro MD [Primary Care Provider] - 1 Week <Naomy Hdez PA-C - Last Filed: 03/21/24 17:21> Stand Alone Forms: Work/School Release IP <Naomy Hdez PA-C - Last Filed: 03/21/24 17:21> Time of Disposition: 21:56 <Naomy Hdez PA-C - Last Filed: 03/21/24 17:21> 21:56 <Jana Jefferson MD - Last Filed: 03/19/24 22:10>
[2024-03-19 19:56] LABS: Basophils Percent Auto 0.3 % (0.2-1.2); Eosinophils Absolute Auto 0.2 K/mm3 (0-0.3); Eosinophils Percent Auto 2.2 % (0-4.4); Hemoglobin 11.8 g/dL (12.0-15.0); Immature Granulocyte Absolute 0.02 K/mm3 (0.00-0.031); Immature Granulocyte Percent A 0.3 % (0-0.5); Lymphocytes Absolute Auto 2.76 K/mm3 (0.9-3.2); Lymphocytes Percent Auto 35.8 % (18.3-44.2); Mean Corpuscular HGB Conc 32.8 g/dl (32-36); Mean Corpuscular Hemoglobin 28.9 pg (26-34); Mean Corpuscular Volume 88.2 fl (80-100); Mean Platelet Volume 9.7 fl (7.4-10.4); Monocytes Absolute Auto 0.5 K/mm3 (0.1-0.6); Monocytes Percent Auto 6.5 % (2.6-8.5); Neutrophils Absolute Auto 4.3 K/mm3 (1.3-6.7); Neutrophils Percent Auto 54.9 % (45.5-73.1); Platelet Count Result 368 k/mm3 (150-375); Red Blood Count 4.08 M/mm3 (4.2-5.4); Red Cell Distribution Width 16.9 % (11.5-14.5); White Blood Count 7.7 K/mm3 (4.5-10.0)
[2024-03-19] MEDS: MORPHINE SULFATE (*CRX) 2 MG/ML INJ IV PUSH (20:04)
[2024-03-19] MEDS: ONDANSETRON INJ 4 MG/2 ML VIAL IV PUSH (20:04)
[2024-03-19 20:15] VITALS: BP 141/93; PULSE 91; RESP 18; O2SAT 100
[2024-03-19 20:38] LABS: Anion Gap 6 mmol/L (4-12); Blood Urea Nitrogen 8 mg/dL (7-17); CRP 0.9 mg/dL (<1.0); Calcium 9.2 mg/dL (8.4-10.2); Carbon Dioxide 19 mmol/L (22-30); Chloride 111 mmol/L (98-107); Estimated CRCL calculation 95 ml/min; Estimated Glomerular Filt Rate > 60; Glucose 84 mg/dL (65-110); Potassium 3.8 mmol/L (3.4-5.0); Sodium 136 mmol/L (137-145)
[2024-03-19 20:50] LABS: Erythrocyte Sedimentation Rate 39 mm/hr (0-20)
[2024-03-19] MEDS: HYDROmorphone HCL INJ (*CRX) 1 MG/ML SYR 0.5 MG IV PUSH (22:10)
[2024-03-19 22:16] VITALS: BP 133/94; PULSE 89; RESP 18; O2SAT 100
== END 2024-03-19 22:25 | disposition home or self-care (01) ==
PROVIDERS: Physician Assistant; Emergency Provider Emergency Medicine; PCP Emergency Medicine
DX: K02.9 Dental caries, unspecified (principal); K21.9 Gastro-esophageal reflux disease without esophagitis; F41.9 Anxiety disorder, unspecified; F32.A Depression, unspecified; F17.210 Nicotine dependence, cigarettes, uncomplicated; Z79.899 Other long term (current) drug therapy
CPT/HCPCS: 36415; 70491; 80048; 85025; 85652; 86140; 96374; 96375; 99284; J1171; J2270; J2405; Q9967

== ENCOUNTER 2024-08-05 03:34 | Emergency (ER) | payer OTHER, SELFPAY ==
--- NOTE | ~2024-08-05 | XR_ITS ---
Portable chest x-ray Comparison: 04/03/2023 Clinical History: Chest pain Findings: Lungs are clear, without focal consolidation or pleural effusion. Cardiomediastinal silho uette is stable. Bones and soft tissues are unremarkable. Impression: Normal chest. Reviewed, dictated and finalized at [facility]. Impression: Normal chest.
[2024-08-05 03:35] VITALS: RESP 15; O2SAT 100
--- NOTE | 2024-08-05 03:40 | ECG_ITS ---
Test Date: 2024-08-05 03:44:42 Measurements Intervals [place] Rate: 97 P: 54 AL: 147 QRS: 18 QRSD: 79 T: 42 QT: 340 QTc: 432 Interpretive Statements SINUS RHYTHM NONSPECIFIC ST AND T-WAVE ABNORMALITY No previous ECG available for comparison Electronically Signed On 08-05-2024 14:50:40 CDT by India Baig M.D.
[2024-08-05 03:41] VITALS: BP 128/96; PULSE 92; RESP 16; TEMP 36.8; O2SAT 100
--- NOTE | 2024-08-05 03:47 | ED_ITS ---
HPI - Chest Pain General Chief Complaint: Chest Pain Stated Complaint: LEFT SIDED CP X 10-15 MINUTES History of Present Illness HPI narrative: Patient is a 38-year-old female who presents emergency department this morning complaining of muscle spasms to her left leg which radiated up to her left arm and chest. Patient states that she recently started a new medication, statin yesterday, otherwise, denies any recent activity, any recent trauma. Currently denying any chest pain at this. She admits to mild shortness of breath, denies any recent illness, any URI symptoms, fevers or chills, nausea vomiting or diarrhea and denies any abdominal pain. There are no additional modifying, alleviating, or precipitating factors at this time. Related Data Home Medications ?Medication ?Instructions ?Recorded ?Confirmed ?Last Taken ?Type clonazepam 1 mg tablet 1 mg PO TID 12/21/20 01/23/22 Unknown History sertraline 100 mg tablet 100 mg PO DAILY 12/21/20 01/23/22 Unknown History Allergies Allergy/AdvReac Type Severity Reaction Status Date / Time metoclopramide AdvReac Intermediate HALLUCINATI Verified 08/05/24 04:19 ONS tramadol AdvReac Mild Confusion Verified 08/05/24 04:19 Review of Systems 2 Review of Systems: All systems are reviewed and are negative unless stated otherwise in the HPI. [facility] Past Medical History Medical History GERD (gastroesophageal reflux disease) History of ovarian cyst Anxiety Depression Surgical History Surgical History Hx of section Family History Family History Mother Hypertension Grandparent Hypertension Diabetes mellitus Other Asthma Social History Social History Smoking packs per day: 0.5 Smoking cigarettes per day: 10.0 Smoking status: Current every day smoker Substance use: never Gender identity (if verbalized by the patient): Female Exam 2 Narrative: General: Alert, awake, afebrile, in no acute distress, anxious. HEENT: PERRL, no rhinorrhea, no post nasal drip, oropharynx clear. Neck: Trachea midline, no JVD, no lymphadenopathy. Cardiovascular: Regular rate and rhythm, no murmurs, rubs or gallops, no peripheral edema. Respiratory: Clear to auscultation bilaterally, no tachypnea, no wheezing, no rhonchi, no rubs, no respiratory distress. Abdomen: Soft, nontender, nondistended, no rebound, no guarding, no peritoneal signs. Musculoskeletal: No joint swelling or deformity, normal muscle tone. Skin: No rashes or petechia, no signs of infection. Psychiatric: Alert and oriented, normal behavior and judgment for situation. Neurological: Alert and oriented to person, place, and time. Follows all commands. No focal deficits, speech is clear and fluent. Course Vital Signs Vital signs: Vital Signs Respiratory Rate 15 08/05/24 03:35 Pulse Oximetry 100 08/05/24 03:35 Oxygen Delivery Room Air 08/05/24 03:35 Temperature 98.3 F 08/05/24 03:41 Pulse Rate 82 08/05/24 06:00 Respiratory Rate 15 08/05/24 06:00 Blood Pressure 118/84 08/05/24 06:00 Pulse Oximetry 100 08/05/24 06:00 Oxygen Delivery Room Air 08/05/24 03:35 MDM - Chest Pain MDM Narrative Medical decision making narrative: The patient was evaluated by myself in the emergency department. History is obtained from patient who is an independent historian and physical exam was performed. External medical records were reviewed at this time. IV was established and pertinent tests were ordered. EKG was obtained which revealed sinus rhythm rate of 97 beats per minute, no evidence of acute ischemia. EKG was independently interpreted by me and is currently pending official cardiology read. Laboratory results obtained revealing no acute process. Troponin negative. CPK slightly elevated at 138, patient was administered 1 L IV fluid bolus with normal saline at this time. Imaging studies obtained included CXR which was independently interpreted by me revealing no acute cardiopulmonary process, which is pending final radiology interpretation. Differential diagnosis considerations include acute stress reaction, infectious process such as pneumonia, anxiety, acute viral syndrome, acute coronary syndrome although unlikely given patient's low heart score of 0. Comorbidities impacting this visit include history of anxiety and GERD. I have evaluated and discussed social determinants of health with the patient that could potentially impact subsequent diagnosis and treatment plans. On repeat assessment of the patient, reevaluation revealed that the patient is doing well and is in no acute distress. Patient symptoms have improved since she arrived to our emergency department. Repeat vital signs were all reviewed and noted to be stable. Differential diagnosis and treatment plan were discussed with the patient at bedside. Patient agrees with discussion and after shared medical decision making agrees with discharge. All questions were answered to the patient's satisfaction. Patient will follow up with her PCP in 3-5 days. Patient was provided with strict return precautions and instructed to return to the emergency department if any new or worsening symptoms develop. The patient was discharged in stable condition. Lab Data 08/05/24 03:45 08/05/24 03:45 Labs: Lab Results 08/05/24 08/05/24 Range/Units 03:45 04:24 WBC 11.3 H (4.5-10.0) K/mm3 RBC 3.97 L (4.2-5.4) M/mm3 Hgb 11.1 L (12.0-15.0) g/dL Hct 33.7 L (37.0-47.0) % MCV 84.9 (80-100) fl MCH 28.0 (26-34) pg MCHC 32.9 (32-36) g/dl RDW 17.1 H (11.5-14.5) % Plt Count 397 H (150-375) k/mm3 MPV 9.0 (7.4-10.4) fl Immature Gran % (Auto) 0.3 (0-0.5) % Neut % (Auto) 67.3 (45.5-73.1) % Lymph % (Auto) 25.4 (18.3-44.2) % [place] % (Auto) 5.9 (2.6-8.5) % Eos % (Auto) 1.0 (0-4.4) % Baso % (Auto) 0.1 L (0.2-1.2) % Lymph # (Auto) 2.86 (0.9-3.2) K/mm3 [place] # (Auto) 0.7 H (0.1-0.6) K/mm3 Eos # (Auto) 0.1 (0-0.3) K/mm3 Baso # (Auto) 0.0 (0.0-0.1) K/mm3 Abs Immat Gran (auto) 0.03 (0.00-0.031) K/mm3 Absolute Neuts (auto) 7.6 H (1.3-6.7) K/mm3 Absolute Nucleated RBC 0.000 (0.0-0.012) K/mm3 Nucleated RBC % 0.0 (0.0-0.2) % PT 13.6 (11.1-14.7) Seconds INR 1.0 APTT 33.1 (22.3-36.8) Seconds Sodium 138 (137-145) mmol/L Potassium 3.8 (3.4-5.0) mmol/L Chloride 107 (98-107) mmol/L Carbon Dioxide 17 L (22-30) mmol/L Anion Gap 14 H (4-12) mmol/L BUN 9 (7-17) mg/dL Creatinine 0.86 (0.7-1.0) mg/dL Estim Creat Clear Calc 79 ml/min Estimated GFR > 60 (59 - ) Glucose 91 (65-110) mg/dL Calcium 9.4 (8.4-10.2) mg/dL Magnesium 1.9 (1.6-2.3) mg/dL Total Bilirubin 0.6 (0.2-1.3) mg/dL AST 18 (14-36) U/L ALT 14 (6-35) U/L Alkaline Phosphatase 98 (38-126) U/L Total Creatine Kinase 138 H (30-135) U/L Troponin I < 0.012 (0.000-0.034) ng/mL Total Protein 9.0 H (6.3-8.2) g/dL Albumin 4.7 (3.5-5.1) g/dL Lipase 122 (23-300) U/L POC Urine HCG, Qual Negative (Negative) Discharge Plan Discharge Clinical Impression: Muscle spasm, Atypical chest pain Patient Disposition: Home, Self-Care Condition: Improved Instructions: Antibiotic Form, Chest Pain (ED), Muscle Spasm (ED) Additional Instructions: Please follow-up with your family doctor within the next 3-5 days. Return to the emergency department if any new or worsening symptoms develop. Patient Language: Czech Prescriptions: No Action sertraline 100 mg tablet 100 mg PO DAILY clonazepam 1 mg tablet 1 mg PO TID melatonin 5 mg tablet 5 mg PO HS PRN (Reason: sleep) Qty: 10 0RF tramadol 50 mg tablet 50 mg PO Q6H MDD 4 tabs PRN (Reason: pain) Qty: 14 0RF tramadol 50 mg tablet 50 mg PO Q6H MDD 4 tabs PRN (Reason: pain) Qty: 14 0RF hydrocodone-acetaminophen 5-325 mg tablet 1 tablet PO Q6H PRN (Reason: pain) Qty: 20 0RF hydrocodone-acetaminophen 5-325 mg tablet 1 tablet PO Q4H PRN (Reason: pain) Qty: 20 0RF amoxicillin 875 mg tablet 875 mg PO Q12H 7 Days Qty: 14 0RF hydrocodone-acetaminophen 5-325 mg tablet 1 tablet PO Q8H PRN (Reason: pain) Qty: 8 0RF hydrocodone-acetaminophen 5-325 mg tablet 1 tablet PO Q12H PRN (Reason: pain) 7 Days Qty: 14 0RF albuterol sulfate 90 mcg/actuation HFA aerosol inhaler 1 puff inhalation QID PRN (Reason: shortness of breath or wheezing) Qty: 6.7 0RF benzonatate 100 mg capsule 100 mg PO BID PRN (Reason: cough) Qty: 14 0RF naproxen 500 mg tablet 500 mg PO BID PRN (Reason: pain) Qty: 28 0RF cyclobenzaprine 10 mg tablet 10 mg PO TID PRN (Reason: muscle spasm) Qty: 30 0RF Follow-up/Referrals: Zeyad Lazaro MD [Primary Care Provider] - 3 Days Stand Alone Forms: Work/School Release IP Time of Disposition: 05:41
[2024-08-05 03:52] LABS: Basophils Percent Auto 0.1 % (0.2-1.2); Eosinophils Absolute Auto 0.1 K/mm3 (0-0.3); Hematocrit 33.7 % (37.0-47.0); Hemoglobin 11.1 g/dL (12.0-15.0); Immature Granulocyte Absolute 0.03 K/mm3 (0.00-0.031); Immature Granulocyte Percent A 0.3 % (0-0.5); Lymphocytes Absolute Auto 2.86 K/mm3 (0.9-3.2); Lymphocytes Percent Auto 25.4 % (18.3-44.2); Mean Corpuscular HGB Conc 32.9 g/dl (32-36); Mean Corpuscular Volume 84.9 fl (80-100); Monocytes Absolute Auto 0.7 K/mm3 (0.1-0.6); Monocytes Percent Auto 5.9 % (2.6-8.5); Neutrophils Absolute Auto 7.6 K/mm3 (1.3-6.7); Neutrophils Percent Auto 67.3 % (45.5-73.1); Platelet Count Result 397 k/mm3 (150-375); Red Blood Count 3.97 M/mm3 (4.2-5.4); Red Cell Distribution Width 17.1 % (11.5-14.5); White Blood Count 11.3 K/mm3 (4.5-10.0)
[2024-08-05 04:01] LABS: Prothrombin Time 13.6 Seconds (11.1-14.7)
[2024-08-05 04:02] LABS: Partial Thromboplastin Time 33.1 Seconds (22.3-36.8)
[2024-08-05 04:03] LABS: Alanine Aminotransferase 14 U/L (6-35); Albumin Level 4.7 g/dL (3.5-5.1); Alkaline Phosphatase 98 U/L (38-126); Anion Gap 14 mmol/L (4-12); Aspartate Amino Transferase 18 U/L (14-36); Bilirubin,Total 0.6 mg/dL (0.2-1.3); Blood Urea Nitrogen 9 mg/dL (7-17); Calcium 9.4 mg/dL (8.4-10.2); Carbon Dioxide 17 mmol/L (22-30); Chloride 107 mmol/L (98-107); Estimated CRCL calculation 79 ml/min; Estimated Glomerular Filt Rate > 60; Glucose 91 mg/dL (65-110); Lipase 122 U/L (23-300); Potassium 3.8 mmol/L (3.4-5.0); Sodium 138 mmol/L (137-145)
[2024-08-05 04:14] LABS: Troponin I < 0.012 ng/mL (0.000-0.034)
[2024-08-05] MEDS: SODIUM CHLORIDE 0.9% IV 1,000 ML 999 ML IV CONT (04:19)
[2024-08-05 04:26] LABS: BEDSIDEPREGUCG Negative (Negative)
--- OUTSIDE RECORDS SUMMARY | 2024-08-05 04:41 | XMS_ITS | Continuity of Care Document ---
Author Organization [place] - [facility] Primary [place] Address [address] [place] [address] Care Team Providers Care General Manager [employer] Name Role Phone NATHALIA MELTON Primary Care Provider NATHALIA MELTON Referring Provider [phone] TANK KING Psychiatrist Assessment Encounter Date Assessment Date Assessment LastModified by Organization Details LastModified Time 08/04/2024 08/04/2024 07/02/2024: TSH 0.778L VIT D 15.8 Chol 220, LDL 153 [email or web address] Not available 08/04/2024 16:04:21 Plan of Treatment Reminders Order Date Submit Date Provider Last Modified By Organization Details Last Modified Time Details Appointments New Patient 40 2024 02:30P M STEPAN Gastelum Not available Not available Not available Follow Up 15 2024 02:00P M Nathalia martinez MD Not available Not available Not available Lab lipid panel, serum 2024 025 [email or web address] [facility] (Lab), [address] [place], [address], 08/04/2024 16:06:03 CBC w/ auto diff 2024 025 [email or web address] [facility] (Lab), [address] [place], [address], 08/04/2024 16:06:02 TSH, serum or plasma [address] (Lab), [address] [place], [address], 08/04/2024 16:06:03 CMP, serum or plasma [address] (Lab), [address] [place], [address], 08/04/2024 16:06:03 vitamin D, 25-hydrox y, total, serum [address] (Lab), [address] [place], [address], 08/04/2024 16:06:03 vitamin B12 + folate, serum or blood [address] (Lab), [address] [place], [address], 08/04/2024 16:06:02 Referral obstetric rivas and gynecolog ist referral - Please call patient to schedule an appointme nt. Thank you 2024 025 GIOVANA Fernandez, [address] [facility] [address], [place], [address], 08/04/2024 19:36:22 psychiatr ist referral - Please call patient to schedule an appointme nt. Thank you. 2024 025 ANA Marie Norton [facility], [address] [facility] [address], [place], [address], 08/04/2024 19:11:44 orthopedi c surgeon referral - Please call patient to schedule an appointme nt. Thank you. 2024 025 [email or web address] Hollis Abreu MD, [facility] [place], [address], 08/04/2024 18:41:14 Procedures None recorded. Surgeries None recorded. Imaging None recorded. Medication Orders Crestor 40 mg tablet 2024 [id number], [address], [place], [place], [id number], 08/04/2024 16:22:10 cholecalc iferol (vitamin D3) 1,250 mcg (50,000 unit) capsule 2024 025 [id number], [address], [place], [place], [id number], 08/04/2024 16:06:09 Patient TargetsNo targets recorded. Patient InstructionsNo instructions recorded. Reason for Referral Orthopedic Surgeon Referral for Pain of right shoulder joint Please call patient to schedule an appointment. Thank you. Referring Physician: Nathalia Melton, Internal Medicine, Encounter Date: 08/04/2024 Special Education Aide And Gynecologis t Referral for Gynecologic examination Please call patient to schedule an appointment. Thank you Referring Physician: Nathalia Melton Internal Medicine, Encounter Date: 08/04/2024 Psychiatrist Referral for Mi xed anxiety and depressive disorder Please call patient to schedule an appointment. Thank you. Referring Physician: Nathalia Melton Internal Medicine, Encounter Date: 08/04/2024 Problems Name Problem SNOMED Code Status Onset Date Resolution Date Notes Provider Name and Address Organization Details Recorded Time Cigarette smoker 80943585 Active 2024 Nathalia martinez MD [address], [address], [place], [address], [place] 15:39:41 Mixed anxiety and depressive disorder 102118502 Active 2024 Nathalia martinez MD [address], [address], [place], [address], [place] 01/08/202 5 15:41:44 Vitamin D deficiency 01881544 Active 2024 Nathalia martinez MD [address], [address], [place], [address], [facility] 5 15:42:07 Serum vitamin B12 below reference range 016252606 Active 2024 Nathalia martinez MD [address], [address], [place], [address], [facility] [facility] 5 15:42:16 Pain of right shoulder joint 3825020545044 9100 Active 2024 Nathalia martinez MD [address], [address], [place], [address], [facility] 5 16:04:25 Low back pain 161405430 Active 2024 Nathalia martinez MD [address], [address], [place], [address], [facility] 5 16:04:47 Dental caries 55922109 Active 2024 Nathalia martinez MD [address], [address], [place], [address], [facility] [facility] 5 16:21:23 Hyperlipide negro 53067076 Active 2024 Nathalia martinez MD [address], [address], [place], [address], [facility] [place] 5 16:05:10 Problem Notes None recorded. Procedures Surgical History Date Name Laterality Status Provider Name and Address Organization Details Recorded Time 06/25/19 25 Ortho - Cortisone Injection completed Hollis Abreu MD [address], [address], [place], [address], [facility] 06/25/2024 11:59:34 completed GILA Winters [facility] 06/04/2024 15:31:16 Cholecystectomy completed GILA Winters [facility] 06/04/2024 15:31:26 Imaging Results None recorded. Procedure Notes None recorded. Medical Equipment None Reported. Allergies Allergen ID Allergen Name Allergen Category Reaction Reaction Severity Criticality Documentation Date Start Date Code Code System Note Provider Name and Address Organization Details Recorded Time 48268 Reglan medicatio n hallucina tions Not available Not available 06/25/2024 9230 RxNorm Maria Fernanda Banuelos GILA tayler [facility] 5 09:32:08 09328 tramadol medicatio n hallucina tions Not available Not available 06/25/2024 56121 RxNorm Maria Fernanda Vin [facility] 09:32:21 Medications Name Sig Start Date Stop Date Status Note LastModified by Organization Details LastModified Time celecoxib 200 mg capsule TAKE 1 CAPSULE BY MOUTH EVERY DAY active Not Available Not Available No t Available ibuprofen 800 mg tablet TAKE 1 TABLET BY MOUTH EVERY 8 HOURS 06/25 completed Not Available Not Available Not Available hydrocodone 5 mg-acetamin ophen 325 mg tablet TAKE 1 TABLET BY MOUTH EVERY 12 HOURS FOR 7 DAYS NEEDED FOR PAIN 06/25 completed Not Available Not Available Not Available bupivacaine HCl 0.5 % (5 mg/mL) injection solution Take 4 mL by injection route. 07/02 completed Not Available Not Available Not Available prednisone 20 mg tablet TAKE 1 TABLET BY MOUTH TWICE DAILY FOR 7 DAYS 06/25 completed Not Available Not Available Not Available clonazepam 0.5 mg tablet TAKE 1 TABLET BY MOUTH THREE TIMES DAILY active Not Available Not Available No t Available sertraline 100 mg tablet TAKE 1 TABLET BY MOUTH EVERY DAY 06/25 completed Not Available Not Available Not Available clonazepam 1 mg tablet Take 1 tablet twice a day by oral route as needed. 07/02 completed Not Available Not Available Not Available acetaminoph en 300 mg-codeine 15 mg tablet TAKE 1 TABLET BY MOUTH EVERY 8 HOURS active Not Available Not Available No t Available amoxicillin 500 mg tablet TAKE 1 TABLET BY MOUTH EVERY 8 HOURS active Not Available Not Available No t Available amoxicillin 875 mg tablet TAKE 1 TABLET BY MOUTH EVERY 12 HOURS FOR 7 DAYS 06/25 completed Not Available Not Available Not Available Kenalog 10 mg/mL suspension for injection Take 1 mL by injection route. 07/[address] [facility]: [phone] Not Available Not Available Not Available gabapentin 300 mg capsule active Not Available Not Available Not Available sertraline 25 mg tablet TAKE 1/2 TABLET BY MOUTH DAILY 06/25 completed Not Available Not Available Not Available methylpredn isolone 4 mg tablets in a dose pack FOLLOW PACKAGE DIRECTION S 06/25 completed Not Available Not Available Not Available amoxicillin 875 mg-potassiu m clavulanate 125 mg tablet TAKE 1 TABLET BY MOUTH EVERY 12 HOURS FOR 7 DAYS 06/25 completed Not Available Not Available Not Available amoxicillin 500 mg-potassiu m clavulanate 125 mg tablet TAKE 1 TABLET BY MOUTH EVERY 8 HOURS 06/25 completed Not Available Not Available Not Available hydroxyzine pamoate 25 mg capsule TAKE 1 CAPSULE BY MOUTH THREE TIMES DAILY NEEDED active Not Available Not Available No t Available Crestor 40 mg tablet Take 1 tablet every day by oral route for 90 days. 2024 active Not Available Not Available Not Avai lable duloxetine 30 mg capsule,del ayed release TAKE 1 CAPSULE BY MOUTH EVERY DAY 06/25 completed Not Available Not Available Not Available duloxetine 60 mg capsule,del ayed release TAKE 1 CAPSULE BY MOUTH EVERY DAY active Not Available Not Available No t Available chlorhexidi ne gluconate 0.12 % mouthwash RINSE TWICE DAILY FOR 30 SECONDS active Not Available Not Available No t Available cholecalcif maurice (vitamin D3) 1,250 mcg (50,000 unit) capsule Take 1 capsule every week by oral route for 90 days. 2024 active Not Available Not Available Not Avai lable Vitals Date Recorded Body height Body mass index (BMI) Body weight Heart rate Oxygen saturation Oxygen saturation in Arterial blood by Pulse oximetry Systolic blood pressure Diastolic blood pressure Provider Name and Address Organization Details Last Updated DateTime 5 154.94 cm 34.4 kg/m2 13140.8 1 g 100 /min 99 % 99 % 120 mm[Hg] 80 mm[Hg] GILA Christopher [place] [facility] [employer] [facility] 5 15:36:11 Social History Question Answer Notes LastModified by Organization Details LastModified Time Tobacco Smoking Status Current Every Day Smoker Seema Gomez, GILA lester, [facility] [place] [employer] 06/04/2024 15:25:18 Do You Have An Advance Directive? No Information not available 06/04/2024 What Is Your Level Of Alcohol Consumption? None Information not available 06/04/2024 What Is Your Level Of Caffeine Consumption? Heavy Information not available 06/04/2024 In The 14 Days Before Symptom Onset, Have You Had Close Contact With A Laboratory-confi rmed COVID-19 While That Case Was Ill? No Information not available 06/04/2024 In The 14 Days Before Symptom Onset, Have You Had Close Contact With A Person Who Is Under Investigation For COVID-19 While That Person Was Ill? No Information not available 06/04/2024 Are You Currently Employed? Yes Information not available 06/04/2024 What Type Of Diet Are You Following? REGULAR Information not available 06/04/2024 What Is The Highest Grade Or Level Of School You Have Completed Or The Highest Degree You Have Received? 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 Unknown Information not available 06/04/2024 Are There Any Guns Present In Your Home? No Information not available 06/04/2024 Where [facility] You Live? [facility] Information not available 06/04/2024 Do You Have A Medical Power Of Java Spring Developer? No Information not available 06/04/2024 What Was The Date Of Your Most Recent Tobacco Screening? 07/02/2024 Information not available 07/02/2024 Do You Have Any Pets? Yes Information not available 06/04/2024 What Is Your Relationship Status? Single Information not available 06/04/2024 Do You Use Your Seat Belt Or Car Seat Routinely? Yes Information not available 06/04/2024 Do You Have Smoke And Carbon Monoxide Detectors In Your Home? Yes Information not available 06/04/2024 At What Age Did You Start Smoking Tobacco? 18 Information not available 06/04/2024 Are You Passively Exposed To Smoke? Yes Information not available 06/04/2024 Are There Any Smokers In Your House? Yes Information not available 06/04/2024 How Much Tobacco Do You Smoke? 1 PPD Information not available 06/04/2024 Do You Feel Stressed (tense, Restless, Nervous, Or Anxious, Or Unable To Sleep At Night)? [id number] Information not available 06/04/2024 Do You Use Any Illicit Or Recreational Drugs? No Information not available 06/04/2024 Have You Recently Traveled Abroad? No Information not available 06/04/2024 Do You Or Have You Ever Used Any Other Forms Of Tobacco Or Nicotine? No Information not available 06/04/2024 Sex: Female Functional Status Question Answer Note LastModified by Organization D etails LastModified Time What is your exercise level? Moderate Information not available 06/04/2024 Mental Status None recorded. Family History Relationship Description Onset Age of this Age Resolved Age Notes LastModified by Organization Details LastModified Time Mother Hypertensive disorder Not available 2024 15:22:25 Father Myocardial infarction Not available 06/04 15:22:37 Medical History Condition Response NERVE DISEASE N BLINDNESS N RHEUMATIC FEVER N KIDNEY STONES N BLADDER PROBLEMS N MRSA N OTHER # 1 N POLIO N LUNG DISEASE/DISORDER N HISTORY OF DRUG ABUSE N COPD N RADIATION / CHEMOTHERAPY N Other # 2 N BLOOD DISEASES N EAR OR HEARING PROBLEMS N MUMPS N SHINGLES N DEPRESSION (INCLUDING POST ) Y BOWEL PROBLEMS N FAILED BACK SYNDROME N STROKE/TIA N ULCERS N BENIGN PROSTATIC HYPERPLASIA N MEASLES N HYPOTENSION N MYOCARDIAL INFARCTION N OBESITY N GERD/NAUSEA N ANEURYSM N URINARY/BLADDER/KIDNEY PROBLEMS N CORONARY ARTERY DISEASE (CAD) N Do you have Advance directive? N ADDICTION CONCERNS N Impotence N ENDOMETRIOSIS N USE OF BLOOD THINNERS N SKIN PROBLEMS N GASTROINTESTINAL DISORDER N PERIPHERAL VASCULAR DISEASE N MUSCLE,JOINT OR BONE PROBLEMS N GASTROINTESTINAL BLEEDING N BLOOD CLOTS N ASTHMA N CATARACTS N Abdominal Pain N ERECTILE DYSFUNCTION N ARTERIAL INSUFFICIENCY N VARICOSITIES N GI PROBLEMS N Low Testosterone N INFERTILITY N AIDS/HIV N CHEMOTHERAPY / RADIATION N LIVER DISEASE N MALE HYPOGONADISM N HYPERTENSION N Deficiency N TOURETTE'S N ANXIETY DISORDER Y BLOOD TRANSFUSION N ANEMIA/BLOOD DISORDER N CHRONIC EAR INFECTIONS N TUBERCULOSIS N GLAUCOMA N FOOT PROBLEM N DIVERTICULITIS N SLEEP APNEA N CHICKENPOX N ALLERGIES/HAYFEVER N BACK INJECTIONS N INFECTIOUS DISEASE N PROSTATE N HEART ARRHYTHMIA N ESRD N INSOMNIA N HIGH CHOLESTEROL / HYPERLIPIDEMIA N EYE PROBLEMS N HYPERTHYROIDISM N PVD N EDEMA N CHRONIC PAIN SYNDROME N HYPOTHYROIDISM N CAROTID BLOCKAGE N CONSTIPATION N BACK / NECK PROBLEMS N HAVE YOU BEEN HOSPITALIZED OR SEEN IN [facility] IN THE PAST YEAR ? N ATHEROSCLEROSIS N BREAST PROBLEMS N DIALYSIS N POLYCYSTIC OVARIES N ECZEMA N OSTEOPOROSIS N ARTHRITIS N NO SIGNIFICANT PAST MEDICAL HISTORY N APPENDICITIS N DIABETES, TYPE N BAD TEETH N VON WILLIBRAND'S DISEASE N ENT N HEARTBURN / REFLUX N GI N AUTISM SPECTRUM DISORDER (ASD) N POST LAMINECTOMY SYNDROME N HEPATITIS / LIVER DISEASE N GOUT N SLEEP DISORDER N ALZHEIMER'S DISEASE N Brain Problems N DEMENTIA N HERPES N SEIZURES/EPILEPSY N HEADACHES/MIGRAINES N VASCULAR DISEASE N PACEMAKER N DIZZINESS N HEART DISEASE/HEART PROBLEMS N KIDNEY DISEASE N MULTIPLE SCLEROSIS N NEUROPSYCHOLOGICAL N CANCER: SPECIFY N CARDIAC ARRHYTHMIA N ATRIAL FIBRILLATION N Gall Stones N PULMONARY EMBOLISM N AUTOIMMUNE DISEASE N Gynecological HistoryNo gynecological history recorded. Obstetrics History GPAL:G 0 P 0 0 0 0 Immunizations Vaccine Type Date Status Note Provider Nam e and Address Organization Details Recorded Time MMR 0 completed Seema Gomez RMBrock null, [place] [facility] 06/04/2024 15:21:31 MMR 1 completed Seema Gomez RMA null, [place] [facility] 06/04/2024 15:21:31 DT (pediatric) 0 completed Seema Gomez RMBrock null, [place] [facility] 06/04/2024 15:21:31 DT (pediatric) 9 completed Seema Gomez RMA null, [place] [facility] 06/04/2024 15:21:31 DT (pediatric) 8 completed Seema Gomez RMA null, [place] [facility] 06/04/2024 15:21:31 DT (pediatric) 8 completed Seema [place], RMA null, [place] [facility] 06/04/2024 15:21:31 DT (pediatric) 3 completed Seema [place], RMA null, [place] [facility] 06/04/2024 15:21:31 OPV 0 completed Seema Jason, RMA null, [place] [facility] 06/04/2024 15:21:31 OPV 8 completed Seema [place], RMA null, [place] [facility] 06/04/2024 15:21:31 OPV 8 completed Seema Jason, RMA null, [place] [facility] 06/04/2024 15:21:31 OPV 3 completed Seema Gomez RMA null, [facility] 06/04/2024 15:21:31 Td (adult), 2 Lf tetanus toxoid, preservative free, adsorbed 9 completed Seema [place], RMA null, [place] [facility] 06/04/2024 15:21:31 Hep B, adolescent or pediatric 9 completed Seema [place], RMA null, [facility] 06/04/2024 15:21:31 Hep B, adolescent or pediatric 8 completed Seema Gomez RMA null, [facility] 06/04/2024 15:21:31 Hep B, adolescent or pediatric 9 completed Seema Gomez RMA null, [facility] 06/04/2024 15:21:31 Influenza, split virus, trivalent, PF 5 completed Nathalia Melton MD [address], [place] [address], [place], [address], [facility] 06/23/2024 14:21:40 Past Encounters Encounter ID Performer Location Encounter Start Date Encounter Closed Date Diagnosis/Indication Diagnosis SNOMED-CT Code Diagnosis ICD10 Code Diagnosis Note [id number] Hollis Abreu MD [facility] Ortho Josiane Ambrose [address] [place] [address] 07/09/2024 10:49:49 07/09/2024 12:08:32 Pain of right shoulder joint 5861433134 0470809 M25.896 [id number] Nathalia lutz MD [facility] Primary Care Germaine elias [address] [facility] [address] [place] [address] 08/04/2024 15:20:15 08/04/2024 16:25:01 Screening - NAD 505021658 Z13.9 PAP: Get this Get yearly flu shot, can do Tdap if not doneCan do COVID 19 boosters RTC in 3 months, do labs, ER if worse, she is very appreciati ve to this plan of care Cigarette smoker 2613999 7 F17.210 Advised to quit! declined any NRT Mixed anxi ety and depressive disorder 276634406 F41.8 On clonazepam , filled by Mike King 06/06/2024 for #90 tabletsOn duloxetine 60mg daily filled by Mike KingNot suicidal or homicidalS ees her psychiatri st [place], will again refer to Marie Norton [employer] Vitamin D deficiency 347 16839 E55.9 Get on vit d and repeat the labs Serum tanna min B12 below reference range 749603818 R79.89 Pain of ri ght shoulder joint 5648631577 1385545 M25.511 Dr Rouse on celebrex, f/u apt 08/27/2024 Now needs to see Dr Lois AYALA again as the shot or the meds are not helping her OV 08/04/2024 : Get MR arthrogam Low back pain 046504451 M54.50 Referred to pain management , advised to keep and take her MRI reports to pain management , was referred last OV, today 07/02/2024 states that she has been given paper work to fill out and she just got it today for the pain management to see her, advised to fill out the paperwork so she can be seen JAMIE Gynecologi c examination 05788351 Z01.419 Hyperlipidemia 88484878 E78.5 Get on crestor 40mg daily, more diet and exerciseGe t labs Health Concerns Section Related Observation LastModified by Organization Detai ls LastModified Time None Recorded Concern Status LastModified by Organization Details LastModified Time None Recorded Payers Encounter Date Sequence Insurance Name Policy Number Policy Galloway Covered Member ID Galloway Member ID Guarantor Name 08/04/2024 1 [facility] - DOS ON OR AFTER 20 (MEDICAID REPLACEMENT - HMO) Lawrence Salcedo [id number] Yanozzy Salcedo Notes Date Note Type Note Provider Name and Address Organization Details Recorded Time 08/04/2024 text/html OV 06/04/2024:He re to establish care Present Hx:LBPR shoulder painAnxiety depression Here to discuss above, states that she was involved in a work related accident in 2020 at [employer] and now has R shoulder and LBPR shoulder pain is sharp and increases with raising her arm and lying on the shoulder, no N/T or 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, she is RHDLBP is mid lower back, achyness, no neuropathy or radiculopathy, states that in 2020 she did have a MRI and was seen by her WC MD and given steroids, but the pain has persisted, no loss of bowel or bladder control, she denies any UE or LE weaknessShe has also been to a dentist and has teeth pulled but now has pain in the lower gums, would like to get an antibiotic OV 07/02/2024: Here for her f/u apt, she has not yet done her labs, she states that she did see ortho was given an injection and this has not helped her at all, she is also not yet seen her psychiatrist as the [facility] psychiatrist required her to be seen by PCP twice prior to scheduling an appointment, she is quite upset at this and would like an appointment to psychiatry JAMIE OV 08/04/2024: Here for her f/u apt, she has seen her psychiatrist who has given her more 'meds' but she would like to see another psychiatrist, she was also seen by ortho and was told to get an MR arthrogram and also seen by pain management and now has to get PT Nathalia Melton MD [address] [place] [address], [address], [place], [address], [place] [facility] 08/04/2024 18:02:38 OBGyn Episode No OBEpisode recorded.
--- OUTSIDE RECORDS SUMMARY | 2024-08-05 04:41 | XMS_ITS | Clinical Summary ---
Author Organization [facility] Address [facility] [place] [address] Care Team Providers Care Medical Record Administrator Name Role Phone Zeyad Lazaro MD Primary Care Provider [phone] Allergies Active Allergy Reactions Criticality Noted Date Comments Metoclopramide Hallucinations 09/22/2023 Tramadol Hallucinations 09/22/2023 Medications cetirizine (ZYRTEC) 10 MG tablet Take 1 tablet (10 mg total) by mouth daily. 30 tablet 09/22/2023 Active fluticasone propionate (FLONASE) 50 MCG/ACT nasal spray 1 spray by Nasal route daily. 18.2 mL 09/22/2023 Active lidocaine viscous (XYLOCAINE) 2 % solution Take 5 mLs by mouth 4 (four) times daily as needed for Pain. 100 mL 01/24/2024 Active Social History Tobacco Use Types Packs/Day Years Used Date Smoking Tobacco: Every Day Cigarettes Passive Smoke Exposure: Never Smokeless Tobacco: Never Tobacco Cessation:Ready to Q uit: No; Counseling Given: Yes Alcohol Use Standard Drinks/Week Comments Yes 0 (1 standard drink = 0.6 oz pur e alcohol) Comments No Sex and Gender Information Value Date Recorded Sex Assigned at Not on file Legal Sex Female 4:38 PM CDT Gender Identity Not on file Sexual Orientation Not on file Last Filed Vital Signs Vital Sign Reading Time Taken Comments Blood Pressure 141/93 01/24/2024 5:00 PM CDT Pulse 111 01/24/2024 5:00 PM CDT Temperature 36.4 C (97.6 F) 01/24/2024 5:00 PM CDT Respiratory Rate 16 01/24/2024 5:00 PM CDT Oxygen Saturation 100% 01/24/2024 5:00 PM CDT Inhaled Oxygen Concentration - - Weight 88 kg (194 lb) 01/24/2024 5:00 PM CDT Height 149.9 cm (4' 11 ) 01/24/2024 5:00 PM CDT Body Mass Index 39.18 01/24/2024 5:00 PM CDT Plan of Treatment Health Maintenance Due Date Last Done Comments Cervical Cancer Screening Pap Smear (Age 30 to 64) Every 3 Years 1987 Annual Physical 09/25/1990 Pneumococcal Vaccine: Pediatrics (0 to 5 Years) and At-Risk Patients (6 to 64 Years) (1 of 2 - PCV) 09/25/1993 DTaP, Tdap and Td Vaccines (2 - Tdap) 03/17/1999 03/16/1999, 03/03/1993, 06/05/1989, Additional history exists Hepatitis C 09/25/2005 Cervical Cancer Screening Pap with HPV Testing (Age 30 to 64) Every 5 Years 09/25/2017 Cervical Cancer Screening with HPV 09/25/2017 COVID-19 Vaccine ( season) 2024 Influenza Adult (#1) 2024 Hepatitis B Vaccines Completed 03/16/1999, 06/21/1998, 01/28/1998 HPV Vaccines Aged Out No longer eligi ble based on patient's age to complete this topic Meningococcal B Vaccine Aged Out No l onger eligible based on patient's age to complete this topic Meningococcal Vaccine Aged Out No liz bryn eligible based on patient's age to complete this topic RSV Immunizations Under 20 Months Aged Out No longer eligible based on patient's age to complete this topic Insurance [id number] Care Teams Medical Record Administrator Relationship Specialty Start Date End Date Zeyad Lazaro MD [facility] [address] [address] PCP - General FAMILY PRACTICE 09/22/23
--- OUTSIDE RECORDS SUMMARY | 2024-08-05 04:41 | XMS_ITS | Clinical Summary ---
Author Organization [facility] Address [address] [place] [address] Care Team Providers Care Cooperative Education Coordinator Name Role Phone Unavailable Primary Care Provider Unavailabl e Encounters Date Type Department Care Team Description 08/02/2024 External Device Data [facility] Provider, Abstract 08/01/2024 External Device Data [facility] Provider, Abstract 07/29/2024 External Device Data [facility] Provider, Abstract 07/16/2024 External Device Data [facility] Provider, Abstract 07/15/2024 External Device Data [facility] Provider, Abstract 06/18/2024 External Device Data [facility] Provider, Abstract 06/17/2024 External Device Data [facility] Provider, Abstract from Last 3 Months Social History Tobacco Use Types Packs/Day Years Used Date Smoking Tobacco: Never Assessed Comments Unknown Sex and Gender Information Value Date Recorded Sex Assigned at Not on file Legal Sex Female 12:02 PM CDT Gender Identity Not on file Sexual Orientation Not on file Plan of Treatment Health Maintenance Due Date Last Done Comments Pre-Diabetes and Diabetes Screening 1987 DTAP/TDAP/TD VACCINES (1 - Tdap) 09/25/2006 HEPATITIS B VACCINES (1 of 3 - 19+ 3-dose series) 09/25/2006 CERVICAL CANCER SCREENING 09/25/2017 INFLUENZA VACCINE (#1) 2023 HPV VACCINES Aged Out No longer eligi ble based on patient's age to complete this topic PNEUMOCOCCAL VACCINE 0-49 YEARS Aged Out No longer eligible based on patient's age to complete this topic Insurance [employer]
--- OUTSIDE RECORDS SUMMARY | 2024-08-05 04:42 | XMS_ITS | Patient Health Summary ---
Author Organization [facility] Address [address] [place] [address] Care Team Providers Care Electronic Maintenance Supervisor Name Role Phone Zeyad Lazaro MD Primary Care Provider [phone] Note from [facility] [place],non-owned Affiliates and Associated Physician Practices is amultiple site organization consisting of ambulatory clinics and hospital sitesin [place], [place], [place] and [place]. This disclosure is being madepursuant to the Care Everywhere program and may not contain all information available regarding this patient. Last updated 18.[facility] Allergies * Metoclopramide(Psychiatric) -Medium Criticality * Tramadol(Psychiatric) -Medium Criticality Medications * Be aware that medications may not be up to date on this document. Alwaysverify current medications with the patient. * acetaminophen (TYLENOL) 325 MG tablet(Started 11/24/2018) Take 1 tablet by mouth every 4 hours as needed for Headache Maximum allowable Acetaminophen amount = 4 Grams (4000 mg) / 24 hours. * topiramate (TOPAMAX) 25 MG tablet(Started 11/24/2018) Take 1 tablet by mouth at bedtime * sertraline (ZOLOFT) 100 MG tablet(Started 11/24/2018) Take 0.5 tablets by mouth once daily * clonazePAM (KlonoPIN) 1 MG tablet(Started 05/25/2022) Take 1 (one) tablet by mouth 3 times daily * HYDROcodone-acetaminophen ([place]) 5-325 MG tablet(Started 09/13/2023) Take 1 (one) tablet by mouth every 8 hours as needed for Pain Active Problems Problem Noted Date Diagnosed Date Sepsis 11/23/2018 Social History Tobacco Use Types Packs/Day Years Used Date Smoking Tobacco: Every Day Cigarettes Smokeless Tobacco: Never Tobacco Cessation:Ready to Q uit: No; Counseling Given: Yes Alcohol Use Standard Drinks/Week Comments No 0 (1 standard drink = 0.6 oz pur e alcohol) Sex and Gender Information Value Date Recorded Sex Assigned at Not on file Gender Identity Not on file Sexual Orientation Not on file Last Filed Vital Signs Vital Sign Reading Time Taken Comments Blood Pressure 125/92 09/13/2023 10:19 AM CDT Pulse 93 09/13/2023 10:57 AM CDT Temperature 36.4 C (97.6 F) 09/13/2023 10:19 AM CDT Respiratory Rate 18 09/13/2023 10:19 AM CDT Oxygen Saturation 99% 09/13/2023 10:19 AM CDT Inhaled Oxygen Concentration - - Weight 83.9 kg (185 lb) 09/13/2023 10:19 AM CDT Height 149.9 cm (4' 11 ) 09/13/2023 10:19 AM CDT Body Mass Index 37.37 09/13/2023 10:19 AM CDT Procedures * CT SINUS WO CONTRAST(Performed 09/13/2023) Performed for Sinus pain * XR SHOULDER RIGHT 2VW OR MORE(Performed 06/30/2022) Performed for Right shoulder pain, unspecified chronicity * CARDIAC RHYTHM STRIP ORDER(Performed 11/25/2018) * BASIC METABOLIC PANEL (CALCIUM TOTAL)(Performed 11/24/2018) * CBC W AUTO DIFFERENTIAL(Performed 11/24/2018) * LIPID PROFILE(Performed 11/24/2018) * URINE MICROSCOPIC ONLY REFLEX TO CULTURE(Performed 11/23/2018) * URINALYSIS REFLEX MICROSCOPIC REFLEX CULTURE(Performed 11/23/2018) * CULTURE URINE(Performed 11/23/2018) * CHLAMYDIA + GC AMPLIFIED PROBE(Performed 11/23/2018) Performed for Sepsis, due to unspecified organism * GLUCOSE - POINT OF CARE(Performed 11/23/2018) * MRI BRAIN WO CONTRAST(Performed 11/23/2018) Performed for Acute cystitis without hematuria, Acute nonintractable headache, unspecified headachetype, Facial droop * XR PANOREX(Performed 11/23/2018) Performed for Dental infection * CT ANGIO BRAIN AND NECK(Performed 11/23/2018) Performed for Acute nonintractable headache, unspecified headache type, Facial droop * CT HEAD WO CONTRAST(Performed 11/23/2018) Performed for Acute nonintractable headache, unspecified headache type, Facial droop * LACTIC ACID BLOOD(Performed 11/23/2018) * CULTURE BLOOD(Performed 11/23/2018) * CULTURE BLOOD(Performed 11/23/2018) * HCG URINE QUALITATIVE - POCT (IP) INTERFACED(Performed 11/23/2018) * URINE MICROSCOPIC ONLY REFLEX TO CULTURE(Performed 11/23/2018) * URINALYSIS REFLEX MICROSCOPIC REFLEX CULTURE(Performed 11/23/2018) * CULTURE URINE(Performed 11/23/2018) * HCG URINE QUAL POCT NOTIFICATION(Performed 11/23/2018) * HEMOGLOBIN A1C(Performed 11/23/2018) * ERYTHROCYTE SEDIMENTATION RATE(Performed 11/23/2018) Performed for Acute nonintractable headache, unspecified headache type * C-REACTIVE PROTEIN SENSITIVE(Performed 11/23/2018) Performed for Acute nonintractable headache, unspecified headache type * COMPREHENSIVE METABOLIC PANEL(Performed 11/23/2018) * CBC W AUTO DIFFERENTIAL(Performed 11/23/2018) * HCG URINE QUALITATIVE - POCT (IP) INTERFACED(Performed 05/29/2018) * URINE MICROSCOPIC ONLY(Performed 05/29/2018) * URINALYSIS REFLEX TO MICROSCOPIC NO CULTURE(Performed 05/29/2018) * HCG URINE QUAL POCT NOTIFICATION(Performed 05/29/2018) * T4 FREE(Performed 05/29/2018) * TSH(Performed 05/29/2018) * COMPREHENSIVE METABOLIC PANEL(Performed 05/29/2018) * CBC W AUTO DIFFERENTIAL(Performed 05/29/2018) * US PELVIS W TRANSVAG W DOP NON OB(Performed 02/08/2018) Performed for Mass of fallopian tube * CT ABDOMEN PELVIS W CONTRAST(Performed 01/31/2018) Performed for Suprapubic pain, acute * HCG URINE QUALITATIVE - POCT (IP) INTERFACED(Performed 01/31/2018) * URINE MICROSCOPIC ONLY REFLEX TO CULTURE(Performed 01/31/2018) * URINALYSIS REFLEX MICROSCOPIC REFLEX CULTURE(Performed 01/31/2018) * CULTURE URINE(Performed 01/31/2018) * HCG URINE QUAL POCT NOTIFICATION(Performed 01/31/2018) * CK + CKMB PANEL(Performed 01/31/2018) * COMPREHENSIVE METABOLIC PANEL(Performed 01/31/2018) * CBC W AUTO DIFFERENTIAL(Performed 01/31/2018) Results * CT SINUS WO CONTRAST (09/13/2023 4:47 PM CDT) Anatomical Region Laterality Modality Head Computed Tomogra phy 09/13/2023 4:55 PM CDT Impressions 09/13/2023 5:12 PM CDT IMPRESSION: Right anterior maxilla with an expansile cystic lesion involving the root of the right maxillary lateral incisor measuring up to 1.4 cm, which favors a dentigerous cyst; however, other differential considerations include a periapical cyst, odontogenic keratocyst, or unicystic ameloblastoma. Recommend dental consultation. > Interpreting Provider: Mauricio Stoll MD, PhD on 09/13/2023 5:12 PM Narrative 09/13/2023 5:12 PM CDT EXAM: CT SINUS WO CONTRAST, DATE/TIME OF EXAM: 09/13/2023 4:47 PM, LOCATION: [facility] HISTORY: J34.89: Sinus pain ADDITIONAL CLINICAL INFORMATION: Ordering Provider Reason For Exam: Facial tenderness. EXAMINATION: CT scan of the paranasal sinuses without intravenous contrast TECHNIQUE: CT of the paranasal sinuses was performed without intravenous contrast according to standard protocol. CT dose reduction technique was used, including Automated Exposure Control. COMPARISON: No prior similar studies are available for comparison. FINDINGS: PARANASAL SINUSES: Clear. Incidentally noted underpneumatized left frontal sinus. NASAL CAVITY: Clear. Fairly midline nasal septum without a significant spur. MASTOID AIR CELLS/MIDDLE EAR CAVITIES: Clear. BONES: Right anterior maxilla with an expansile cystic lesion involving the root of the right maxillary lateral incisor measuring approximately 1.4 x 1.3 x 1.3 x 1.1 cm (CC x TV x AP; , 11/24, 08/20). No acute osseous abnormality. Incidentally noted bell palatinus and maxillaris. SOFT TISSUES: Unremarkable. PARTIALLY IMAGED PORTIONS OF THE BRAIN: Unremarkable. ORBITS: Unremarkable. OTHER: Multiple scattered dental caries of the left maxillary second and third molars and right maxillary lateral incisor. Procedure Note Mauricio Stoll MD - 09/13/2023 EXAM: CT SINUS WO CONTRAST, DATE/TIME OF EXAM: 09/13/2023 4:47 PM,LOCATION: [facility] HISTORY: J34.89: Sinus pain ADDITIONAL CLINICAL INFORMATION: Ordering Provider Reason For Exam: Facial tenderness. EXAMINATION: CT scan of the paranasal sinuses without intravenous contrast TECHNIQUE: CT of the paranasal sinuses was performed without intravenous contrast according to standard protocol. CT dose reduction technique was used, including Automated Exposure Control. COMPARISON: No prior similar studies are available for comparison. FINDINGS: PARANASAL SINUSES: Clear. Incidentally noted underpneumatized leftfrontal sinus. NASAL CAVITY: Clear. Fairly midline nasal septum without a significant spur. MASTOID AIR CELLS/MIDDLE EAR CAVITIES: Clear. BONES: Right anterior maxilla with an expansile cystic lesion involvingthe root of the right maxillary lateral incisor measuring approximately 1.4x 1.3 x 1.3 x 1.1 cm (CC x TV x AP; , 11/24, 08/20). No acute osseous abnormality. Incidentally noted bell palatinus and maxillaris. SOFT TISSUES: Unremarkable. PARTIALLY IMAGED PORTIONS OF THE BRAIN: Unremarkable. ORBITS: Unremarkable. OTHER: Multiple scattered dental caries of the left maxillary second and third molars and right maxillary lateral incisor. IMPRESSION: Right anterior maxilla with an expansile cystic lesion involving theroot of the right maxillary lateral incisor measuring up to 1.4 cm, whichfavors a dentigerous cyst; however, other differential considerations include a periapical cyst, odontogenic keratocyst, or unicystic ameloblastoma. Recommend dental consultation. > Interpreting Provider: Mauricio Stoll MD, PhD on 09/13/2023 5:12 PM Sheldon Brown MD CT ORDERABLES * XR SHOULDER RIGHT 2VW OR MORE (06/30/2022 10:07 AM REFRACTORY SPECIALIST) Anatomical Region Laterality Modality Upper Extremity Radiographic Margret ging 06/30/2022 10:1 0 AM REFRACTORY SPECIALIST Impressions 06/30/2022 10:23 AM REFRACTORY SPECIALIST IMPRESSION: No acute fracture or dislocation identified. Report dictated by Israel Mcgarry MD (vice president client services). IGuillermo MD have personally reviewed and interpreted this examination/study. > Interpreting Provider: Guillermo Hernandez MD on 06/30/2022 10:23 AM Narrative 06/30/2022 10:23 AM REFRACTORY SPECIALIST PROCEDURE: XR SHOULDER RIGHT 2VW OR MORE, DATE/TIME OF EXAM: 06/30/2022 10:07 AM, LOCATION [facility] INDICATION: M25.511: Right shoulder pain, unspecified chronicity ADDITIONAL CLINICAL INFORMATION: Ordering Provider Reason For Exam: pain COMPARISON: None. FINDINGS: The osseous structures are intact without acute fracture. The glenohumeral and acromioclavicular joints are in anatomic alignment. Bone density and texture are normal. Procedure Note Guillermo Hernandez MD - 06/30/2022 PROCEDURE: XR SHOULDER RIGHT 2VW OR MORE, DATE/TIME OF EXAM: 06/30/2022 10:07 AM, LOCATION [facility] INDICATION: M25.511: Right shoulder pain, unspecified chronicity ADDITIONAL CLINICAL INFORMATION: Ordering Provider Reason For Exam: pain COMPARISON: None. FINDINGS: The osseous structures are intact without acute fracture. Theglenohumeral and acromioclavicular joints are in anatomic alignment. Bone density and texture are normal. IMPRESSION: No acute fracture or dislocation identified. Report dictated by Israel Mcgarry MD (vice president client services). I, Guillermo Hernandez MD have personally reviewed and interpreted this examination/study. > Interpreting Provider: Guillermo Hernandez MD on 06/30/2022 10:23 AM Bill Lim MD DIAGNOSTIC IMAGING O RDERABLES * CARDIAC RHYTHM STRIP ORDER (11/25/2018 4:38 PM CDT) Narrative 11/25/2018 4:38 PM CDT Ordered by an unspecified provider. Scanned Document CARDIAC SERVICES ORD ERABLES * (ABNORMAL) CBC W AUTO DIFFERENTIAL (11/24/2018 5:15 AM CDT) Only the most recent of4 resultswithin the time period is included. WBC 10.7 4.4 - 10.7 x10E9/L 11/24/2018 5:33 AM CDT [facility] WBC Corrected x10E9/L 11/24/2018 5:33 AM CDT [facility] RBC 4.42 3.80 - 5.20 x10E12/L 11/24/2018 5:33 AM CDT [facility] Hemoglobin 13.0 12.0 - 15.6 gm/dL 11/24/2018 5:33 AM CDT [facility] Hematocrit 39.8 35.9 - 45.5 % 11/24/2018 5:33 AM CDT [facility] MCV 90.0 80.7 - 98.3 fl 11/24/2018 5:33 AM CDT [facility] MCH 29.4 26.7 - 34.0 pg 11/24/2018 5:33 AM CDT [facility] MCHC 32.7 30.8 - 35.9 gm/dL 11/24/2018 5:33 AM CDT [facility] Platelet Count 336 153 - 416 x10E9/L 11/24/2018 5:[address] [facility] RDW-CV 13.9 12.1 - 14.9 % 11/24/2018 5:33 AM CDT [facility] MPV 9.7 9.4 - 12.9 fl 11/24/2018 5:[address] [facility] Neutrophils % 43.3(L) 44.0 - 73.0 % 11/24/2018 5:33 AM CDT [facility] Lymphocytes % 47.2(H) 20.0 - 43.0 % 11/24/2018 5:33 AM CDT [facility] Monocytes % 7.4 5.0 - 13.0 % 11/24/2018 5:33 AM CDT [facility] Eosinophils % 1.6 0.0 - 6.0 % 11/24/2018 5:33 AM CDT [facility] Basophils % 0.2 0.0 - 2.0 % 11/24/2018 5:33 AM CDT [facility] Immature Granulocytes 0.3 0 - 1 % 11/24/2018 5:33 AM CDT [facility] Neutrophil Absolute 4.63 2.01 - 7.14 x10E9/L 11/24/2018 5:33 AM CDT [facility] Lymphocytes Absolute 5.04(H) 1.07 - 3.94 x10E9/L 11/24/2018 5:33 AM CDT [facility] Monocytes Absolute 0.79 0.26 - 1.07 x10E9/L 11/24/2018 5:33 AM CDT [facility] Eosinophils Absolute 0.17 0 - 0.47 x10E9/L 11/24/2018 5:33 AM CDT [facility] Basophils Absolute 0.02 0 - 0.08 x10E9/L 11/24/2018 5:33 AM CDT [facility] Immature Granulocytes Absolute 0.03 0.00 - 0.06 x10E9/L 11/24/2018 5:33 AM CDT [facility] nRBC Auto 0 /100 WBC 11/24/2018 5:33 AM CDT [facility] Blood BLOOD SPECIMEN / Unknown Lab Venipuncture / Unknown 11/24/2018 5:15 AM CDT 11/24/2018 5:22 AM CDT Janice Wise ORIENTAL RUG REPAIRER-SENIOR IT BUSINESS ANALYST LAB - HEMATO LOGY ORDERABLES Performing Organization Address City/[facility] Co de Phone Number [facility] [address] [place] [address] * (ABNORMAL) BASIC METABOLIC PANEL (CALCIUM TOTAL) (11/24/2018 5:15 AM CDT) Glucose 86 74 - 106 mg/dL 11/24/2018 5:53 AM CDT [facility] Sodium 135(L) 136 - 145 mmol/L 11/24/2018 5:53 AM CDT [facility] Potassium 3.7 3.5 - 5.1 mmol/L 11/24/2018 5:53 AM CDT [facility] Chloride 105 98 - 107 mmol/L 11/24/2018 5:53 AM CDT [facility] CO2 22(L) 23 - 31 mmol/L 11/24/2018 5:53 AM CDT [facility] Calcium 8.7 8.4 - 10.2 mg/dL 11/24/2018 5:53 AM CDT [facility] Anion Gap 8 8 - 16 mmol/L 11/24/2018 5:53 AM CDT [facility] BUN 10 7 - 18.7 mg/dL 11/24/2018 5:53 AM CDT [facility] Creatinine 0.74 0.55 - 1.02 mg/dL 11/24/2018 5:53 AM CDT [facility] eGFR by MDRD >60 >60 mL/min/1.7 3m2 11/24/2018 5:53 AM CDT [facility] eGFR by MDRD >60 >60 mL/min/1.7 3m2 11/24/2018 5:53 AM CDT [facility] Blood BLOOD SPECIMEN / Unknown Lab Venipuncture / Unknown 11/24/2018 5:15 AM CDT 11/24/2018 5:22 AM CDT Narrative [facility] - 11/24/2018 5:53 AM CDT Attention clinician: BUN Reference Range has changed. Janice Wise APRN-SENIOR IT BUSINESS ANALYST LAB - CHEMIS TRY ORDERABLES Performing Organization Address [facility] de Phone Number [facility] [address] [place] [phone] * (ABNORMAL) LIPID PROFILE (11/24/2018 5:15 AM CDT) Cholesterol 200(H) <200 mg/dL 11/24/2018 5:53 AM CDT [facility] Triglycerides 259(H) <150 mg/dL 11/24/2018 5:53 AM CDT [facility] HDL Cholesterol 34(L) >40 mg/dL 9 5:53 AM CDT [facility] LDL Calculated 114 <130 mg/dL 11/24/2018 5:53 AM CDT [facility] VLDL Calculated 52(H) <=30 mg/dL 9 5:53 AM CDT [facility] Chol HDL Ratio 5.9(H) <4.5 11/24/2018 5:53 AM CDT [facility] LDL/HDL Ratio 3.4 <5.0 11/24/2018 5:53 AM CDT [facility] Blood BLOOD SPECIMEN / Unknown Lab Venipuncture / Unknown 11/24/2018 5:15 AM CDT 11/24/2018 5:22 AM CDT Janice Wise APRN-SENIOR IT BUSINESS ANALYST LAB - CHEMIS TRY ORDERABLES Performing Organization Address City/[facility] Co de Phone Number [facility] [address] [place] [address] * (ABNORMAL) URINE MICROSCOPIC ONLY REFLEX TO CULTURE (11/23/2018 11:25 PM CDT) Only the most recent of3 resultswithin the time period is included. Reflex Status Culture to follow 11/23/2018 11:54 PM CDT [facility] RBC UA 3-5 None Seen, 0-2, 3-5 # /hpf 11/23/2018 11:54 PM CDT [facility] WBC UA 6-10(A) None Seen, 0-5 # /hpf 11/23/2018 11:54 PM CDT [facility] Bacteria UA None Seen None Seen 11/23/2018 11:54 PM CDT [facility] Squamous Epithelial Cells 3-5 None Seen, 0-2, 3-5 /hpf 11/23/2018 11:54 PM CDT [facility] Urine URINE SPECIMEN OBTAINED BY CLEAN CATCH PROCEDURE / Unknown Collection / Unknown 11/23/2018 11:25 PM CDT 11/23/2018 11:40 PM CDT Narrative [facility] - 11/23/2018 11:54 PM CDT Janice Wise ORIENTAL RUG REPAIRER-SENIOR IT BUSINESS ANALYST LAB - URINAL YSIS ORDERABLES [facility] [address] [place] [address] * (ABNORMAL) URINALYSIS REFLEX MICROSCOPIC REFLEX CULTURE (11/23/2018 11:25 PM CDT) Only the most recent of3 resultswithin the time period is included. Color UA Yellow Straw, Yellow 11/23/2018 11:54 PM CDT [facility] Clarity UA Slt Cloudy(A) Clear 11/23/2018 11:54 PM CDT [facility] Glucose UA Negative Negative 11/23/2018 11:54 PM CDT [facility] Bilirubin UA Negative Negative 11/23/2018 11:54 PM CDT [facility] Ketone UA Negative Negative 11/23/2018 11:54 PM CDT [facility] Specific Kiefer UA 1.042(H) 1.005 - 1.030 11/23/2018 11:54 PM CDT [facility] Blood UA Negative Negative 11/23/2018 11:54 PM CDT [facility] pH UA 5.0 5.0 - 8.0 pH 11/23/2018 11:54 PM CDT [facility] Protein UA Negative Negative 11/23/2018 11:54 PM CDT [facility] Urobilinogen UA Negative Negative mg/dL 11/23/2018 11:54 PM CDT [facility] Nitrite UA Negative Negative 11/23/2018 11:54 PM CDT [facility] Leukocyte UA 1+(A) Negative 11/23/2018 11:54 PM CDT [facility] Urine Microscopy Urine microscopy to follow 11/23/2018 11:54 PM CDT [facility] Reflex Status Culture to follow 11/23/2018 11:54 PM CDT [facility] Urine URINE SPECIMEN OBTAINED BY CLEAN CATCH PROCEDURE / Unknown Collection / Unknown 11/23/2018 11:25 PM CDT 11/23/2018 11:40 PM CDT Narrative [facility] - 11/23/2018 11:54 PM CDT Janice Wise APRN-SENIOR IT BUSINESS ANALYST LAB - URINAL YSIS ORDERABLES Performing Organization Address City/[facility]/ZIP Co de Phone Number [facility] [address] [place] [address] * CULTURE URINE (11/23/2018 11:25 PM CDT) Only the most recent of3 resultswithin the time period is included. Culture Urine <10,000 CFU/mL urogenital aparna JAMES 11/25/2018 9:40 AM CDT [facility] Urine URINE SPECIMEN OBTAINED BY CLEAN CATCH PROCEDURE / Unknown Collection / Unknown 11/23/2018 11:25 PM CDT 11/23/2018 11:40 PM CDT Janice Wise APRN-SENIOR IT BUSINESS ANALYST LAB - MICROB IOLOGY ORDERABLES [facility] [address] [place] [address], [facility] [phone] * CHLAMYDIA + GC AMPLIFIED PROBE (11/23/2018 11:23 PM CDT) Pathologist [facility] Chlamydia Amplified Probe Negative Negative 11/25/2018 8:06 AM CDT [facility] GC Amplified Probe Negative Negative 11/25/2018 8:06 AM CDT [facility] Other URINE / Unknown Collection / Unknown 11/23/2018 11:23 PM CDT 11/23/2018 11:40 PM CDT Narrative [facility] - 11/25/2018 8:06 AM CDT Results based on detection/no detection of ribosomal RNA by amplified method. Janice Wise ORIENTAL RUG REPAIRER-SENIOR IT BUSINESS ANALYST LAB - MICROB IOLOGY ORDERABLES [facility] [address] [place] [phone] * (ABNORMAL) GLUCOSE - POINT OF CARE (11/23/2018 6:35 PM CDT) Pathologist [facility] Glucose WB/POC 120(H) 70 - 106 mg/dL 11/24/2018 12:49 AM CDT [facility] Specimen Type Arterial/C apillary 11/24/2018 12:49 AM CDT [facility] Blood BLOOD SPECIMEN / Unknown 11/23/2018 6:35 PM CDT 11/24/2018 12:49 AM CDT Ilan Diop DO LAB - POINT OF CARE ORDERABLES [facility] [address] [place] [address] * MRI BRAIN WO CONTRAST (11/23/2018 4:27 PM CDT) Anatomical Region Laterality Modality Head Magnetic Resonan ce 11/23/2018 4:28 PM CDT Impressions 11/23/2018 4:31 PM CDT No acute intracranial process. Reading Radiologist: Alexa Singleton MD on 11/23/2018 at 4:31 PM Narrative 11/23/2018 4:31 PM CDT EXAMINATION: Magnetic resonance imaging (MRI) of the brain without contrast HISTORY: Headache. TECHNIQUE: MRI of the brain was performed without contrast according to standard protocol. FINDINGS: Comparison is made with a noncontrast head CT from earlier the same day. No evidence of acute or chronic hemorrhage is identified. No evidence of acute cerebral infarction is seen. The ventricles are of normal size, shape, and morphology. No mass effect or midline shift is seen. The corpus callosum and sella appear normal. The posterior fossa, brainstem, and craniocervical junction appear normal. The visualized portions of the orbits, paranasal sinuses, and mastoids appear normal. Normal flow voids are demonstrated in the carotid arteries and basilar artery. The calvarium and visualized cervical spine appear normal. Procedure Note Alexa Singleton MD - 11/23/2018 EXAMINATION: Magnetic resonance imaging (MRI) of the brain without contrast HISTORY: Headache. TECHNIQUE: MRI of the brain was performed without contrast according to standard protocol. FINDINGS: Comparison is made with a noncontrast head CT from earlier the same day. No evidence of acute or chronic hemorrhage is identified. No evidence of acute cerebral infarction is seen. The ventricles are of normal size, shape, and morphology. No mass effect or midline shift is seen. The corpus callosum and sella appear normal. The posterior fossa, brainstem, and craniocervical junction appear normal. The visualized portions of the orbits, paranasal sinuses, and mastoids appear normal. Normal flow voids are demonstrated in the carotid arteries and basilar artery. The calvarium and visualized cervical spine appear normal. IMPRESSION No acute intracranial process. Reading Radiologist: Alexa Singleton MD on 11/23/2018 at 4:31 PM Pablo Shay MD MR ORDERABLES * XR PANOREX (11/23/2018 3:22 PM CDT) Anatomical Region Laterality Modality Head Radiographic Margret ging 11/23/2018 3:36 PM CDT Impressions 11/23/2018 3:38 PM CDT 1. No acute displaced fracture. 2. Dental disease. Reading Radiologist: Alexa Singleton MD on 11/23/2018 at 3:38 PM Narrative 11/23/2018 3:38 PM CDT EXAMINATION: Panorex, one view HISTORY: Right-sided jaw pain. COMPARISON: No prior examinations are available for comparison. FINDINGS: No acute displaced fracture is identified. There is horizontal orientation of the right mandibular wisdom tooth and mesial impaction of the left mandibular wisdom tooth. Cavities are seen in the left maxillary and mandibular wisdom teeth. Procedure Note Alexa Singleton MD - 11/23/2018 EXAMINATION: Panorex, one view HISTORY: Right-sided jaw pain. COMPARISON: No prior examinations are available for comparison. FINDINGS: No acute displaced fracture is identified. There is horizontal orientation of the right mandibular wisdom tooth and mesial impaction of the left mandibular wisdom tooth. Cavities are seen in the left maxillary and mandibular wisdom teeth. IMPRESSION 1. No acute displaced fracture. 2. Dental disease. Reading Radiologist: Alexa Singleton MD on 11/23/2018 at 3:38 PM Janice Wise APRN-SENIOR IT BUSINESS ANALYST DIAGNOSTIC I MAGING ORDERABLES * CT ANGIO NECK HEAD W WO CONTRAST (CTA for STROKE) (11/23/2018 12:16 PM CDT) Anatomical Region Laterality Modality Head Computed Tomogra phy 11/23/2018 12:4 0 PM CDT Impressions 11/23/2018 12:47 PM CDT No large arterial occlusion, stenosis, or aneurysm in the head or neck. Reading Radiologist: Alexa Singleton MD on 11/23/2018 at 12:47 PM Narrative 11/23/2018 12:47 PM CDT EXAMINATION: Computed tomography (CT) of the head and neck without and with contrast HISTORY: Headache. TECHNIQUE: CT of the head was performed without contrast according to standard protocol. Then CT angiography of the head and neck was obtained after the uneventful administration of 100 mL of Isovue-370 intravenous contrast. Three dimensional postprocessing was performed by the technologist and sent to the workstation for review. DOSE: CTDIvol: 38 mGy, DLP: 19 mGy-cm CTDIvol: 12 mGy, DLP: 464 mGy-cm The reported CTDIvol (mGy) and DLP (mGy-cm) values are generated from scan acquisition factors based on a 32 cm body phantom or 16 cm head phantom and may underestimate or overestimate the actual patient dose based on patient size and other factors. FINDINGS: Correlation is made with a noncontrast head CT from earlier the same day. No soft tissue abnormalities are identified in the neck. Angiographic findings: The visualized aortic arch appears normal. The configuration of the brachiocephalic vessels is typical. The innominate artery and both subclavian arteries appear normal. The common carotid arteries and carotid bifurcations appear normal. The cervical internal carotid and vertebral arteries appear normal. The distal internal carotid arteries appear normal. The anterior and middle cerebral arteries appear normal. The distal vertebral arteries appear normal. The basilar artery and posterior cerebral arteries appear normal. No aneurysms, vascular occlusions, or intracranial stenoses are identified. Mild venous contamination is noted. Procedure Note Alexa Singleton MD - 11/23/2018 EXAMINATION: Computed tomography (CT) of the head and neck without and with contrast HISTORY: Headache. TECHNIQUE: CT of the head was performed without contrast according to standard protocol. Then CT angiography of the head and neck was obtained after the uneventful administration of 100 mL of Isovue-370 intravenous contrast. Three dimensional postprocessing was performed by the technologist and sent to the workstation for review. DOSE: CTDIvol: 38 mGy, DLP: 19 mGy-cm CTDIvol: 12 mGy, DLP: 464 mGy-cm The reported CTDIvol (mGy) and DLP (mGy-cm) values are generated from scan acquisition factors based on a 32 cm body phantom or 16 cm head phantom and may underestimate or overestimate the actual patient dose based on patient size and other factors. FINDINGS: Correlation is made with a noncontrast head CT from earlier the same day. No soft tissue abnormalities are identified in the neck. Angiographic findings: The visualized aortic arch appears normal. The configuration of the brachiocephalic vessels is typical. The innominate artery and both subclavian arteries appear normal. The common carotid arteries and carotid bifurcations appear normal. The cervical internal carotid and vertebral arteries appear normal. The distal internal carotid arteries appear normal. The anterior and middle cerebral arteries appear normal. The distal vertebral arteries appear normal. The basilar artery and posterior cerebral arteries appear normal. No aneurysms, vascular occlusions, or intracranial stenoses are identified. Mild venous contamination is noted. IMPRESSION No large arterial occlusion, stenosis, or aneurysm in the head or neck. Reading Radiologist: Alexa Singleton MD on 11/23/2018 at 12:47 PM Pablo Shay MD CT ORDERABLES * CT HEAD WO CONTRAST (11/23/2018 12:01 PM CDT) Anatomical Region Laterality Modality Head Computed Tomogra phy 11/23/2018 12:2 9 PM CDT Impressions 11/23/2018 12:32 PM CDT No acute intracranial process. Reading Radiologist: Alexa Singleton MD on 11/23/2018 at 12:32 PM Narrative 11/23/2018 12:32 PM CDT EXAMINATION: Computed tomography (CT) of the head without contrast HISTORY: Headache. TECHNIQUE: CT of the head was performed without contrast according to standard protocol. DOSE: CTDIvol: 42 mGy, DLP: 774 mGy-cm The reported CTDIvol (mGy) and DLP (mGy-cm) values are generated from scan acquisition factors based on a 32 cm body phantom or 16 cm head phantom and may underestimate or overestimate the actual patient dose based on patient size and other factors. FINDINGS: No prior study is available for comparison. No acute intra- or extra-axial fluid collections are identified. The ventricles are of normal size, shape, and morphology. The basilar cisterns are patent. No mass effect or midline shift is seen. The hunter-white matter differentiation is normal. The visualized portions of the orbits, paranasal sinuses, and mastoids appear normal. No acute fracture is identified. Procedure Note Alexa Singleton MD - 11/23/2018 EXAMINATION: Computed tomography (CT) of the head without contrast HISTORY: Headache. TECHNIQUE: CT of the head was performed without contrast according to standard protocol. DOSE: CTDIvol: 42 mGy, DLP: 774 mGy-cm The reported CTDIvol (mGy) and DLP (mGy-cm) values are generated from scan acquisition factors based on a 32 cm body phantom or 16 cm head phantom and may underestimate or overestimate the actual patient dose based on patient size and other factors. FINDINGS: No prior study is available for comparison. No acute intra- or extra-axial fluid collections are identified. The ventricles are of normal size, shape, and morphology. The basilar cisterns are patent. No mass effect or midline shift is seen. The hunter-white matter differentiation is normal. The visualized portions of the orbits, paranasal sinuses, and mastoids appear normal. No acute fracture is identified. IMPRESSION No acute intracranial process. Reading Radiologist: Alexa Singleton MD on 11/23/2018 at 12:32 PM Pablo Shay MD CT ORDERABLES * CULTURE BLOOD (11/23/2018 10:25 AM CDT) Only the most recent of2 resultswithin the time period is included. Culture No growth day 5 JAMES 11/28/2018 2:00 PM CDT [facility] Blood PERIPHERAL BLOOD / Unknown Venipuncture / Unknown 11/23/2018 10:25 AM CDT 11/23/2018 10:33 AM CDT Pablo Shay MD LAB - MICROBIOLOGY O RDERABLES Performing Organization Address City/[facility]/ZIP Co de Phone Number [facility] [address] [phone] * LACTIC ACID BLOOD (11/23/2018 10:25 AM CDT) Lactic Acid 1.4 0.5 - 2.2 mmol/L 11/23/2018 10:42 AM CDT [facility] Blood BLOOD SPECIMEN / Unknown Venipuncture / Unknown 11/23/2018 10:25 AM CDT 11/23/2018 10:30 AM CDT Pablo Shay MD LAB - CHEMISTRY ORDE RABJE Performing Organization Address City/[facility]/ZIP Co de Phone Number [facility] [address] [place] [address] * HCG URINE QUALITATIVE - POCT (IP) INTERFACED (11/23/2018 10:02 AM CDT) Only the most recent of3 resultswithin the time period is included. HCG Qual Urine Negative Negative 11/23/2018 10:03 AM CDT [facility] Urine URINE / Unknown 11/23/2018 1 0:02 AM CDT 11/23/2018 10:03 AM CDT Pablo Shay MD LAB - POINT OF CARE ORDERABLES Performing Organization Address City/[facility]/ZIP Co de Phone Number [facility] [address] [place] [address] * HCG URINE QUAL POCT NOTIFICATION (11/23/2018 9:50 AM CDT) Only the most recent of3 resultswithin the time period is included. Comment Notification Label Only - See Separate Report 11/23/2018 11:00 AM CDT [facility] Urine URINE / Unknown 11/23/2018 9 :50 AM CDT 11/23/2018 9:50 AM CDT Pablo Shay MD LAB - URINALYSIS ORD ERABLES Performing Organization Address City/[facility]/ZIP Co de Phone Number [facility] [address] [place] [address] * (ABNORMAL) C-REACTIVE PROTEIN SENSITIVE (11/23/2018 7:38 AM CDT) C-Reactive Protein High Sensitivity 2.36(H) <0.30 mg/dL 11/23/2018 1:28 PM CDT [facility] Blood BLOOD SPECIMEN / Unknown Venipuncture / Unknown 11/23/2018 7:38 AM CDT 11/23/2018 7:41 AM CDT Narrative [facility] - 11/23/2018 1:28 PM CDT C-REACTIVE PROTEIN SENSITIVE INTERPRETATION Patients with higher High Sensitivity C-Reactive Protein (hsCRP) concentrations are more likelyto develop stroke, myocardial infarction, and severeperipheral vascular disease. C-Reactive Protein (CRP) is a nonspecificmarker of inflammation and a variety of conditions other than atherosclerosis may cause Elevated concentrations. If the first result is greater than 0.30 mg/dL, recommend repeating test at least 2 weeks later in a metabolically stable state, free of infection or acute illness. The lower of the two results should be used to determine the patient's risk. C-REACTIVE PROTEIN SENSITIVE results are used to assign risk as follows: Less than 0.10 mg/dL Low risk 0.10-0.30 mg/dL Average risk 0.31-0.99 mg/dL High risk Greater than 0.99 mg/dL Very high risk (Clin Chem 2009; 55:378-84) Pablo Shay MD LAB - CHEMISTRY BG DIALLO Performing Organization Address City/[facility]/ZIP Co de Phone Number [facility] [address] [place] [phone] * HEMOGLOBIN A1C (11/23/2018 7:38 AM CDT) [facility] Hemoglobin A1c 5.3 4.0 - 6.1 % 11/23/2018 3:52 PM CDT [facility] Estimated Average Glucose 105 mg/dL 11/23/2018 3:52 PM CDT [facility] Blood BLOOD SPECIMEN / Unknown Lab Venipuncture / Unknown 11/23/2018 7:38 AM CDT 11/23/2018 1:18 PM CDT Narrative [facility] - 11/23/2018 3:52 PM CDT Attention clinician: Reference Range has changed. Janice Wise APRN-SENIOR IT BUSINESS ANALYST LAB - CHEMIS TRY ORDERABLES Performing Organization Address [facility] Co de Phone Number [facility] [address] [place], [place] [phone] * (ABNORMAL) ERYTHROCYTE SEDIMENTATION RATE (11/23/2018 7:38 AM CDT) [facility] Erythrocyte Sedimentation Rate Automated 40(H) 0 - 20 MM/HR 11/23/2018 1:23 PM CDT [facility] Blood BLOOD SPECIMEN / Unknown Lab Venipuncture / Unknown 11/23/2018 7:38 AM CDT 11/23/2018 1:18 PM CDT Pablo Shay MD LAB - HEMATOLOGY JEFERSON MADSEN Performing Organization Address [facility]/ZIP Co de Phone Number [facility] [address] [place] [phone] * (ABNORMAL) COMPREHENSIVE METABOLIC PANEL (11/23/2018 7:38 AM CDT) Only the most recent of3 resultswithin the time period is included. [facility] Glucose 124(H) 74 - 106 mg/dL 11/23/2018 7:59 AM CDT [facility] Sodium 135(L) 136 - 145 mmol/L 11/23/2018 7:59 AM CDT [facility] Potassium 3.7 3.5 - 5.1 mmol/L 11/23/2018 7:59 AM CDT [facility] Chloride 107 98 - 107 mmol/L 11/23/2018 7:59 AM CDT [facility] CO2 19(L) 23 - 31 mmol/L 11/23/2018 7:59 AM CDT [facility] Calcium 9.0 8.4 - 10.2 mg/dL 11/23/2018 7:59 AM CDT [facility] Anion Gap 9 8 - 16 mmol/L 11/23/2018 7:59 AM CDT [facility] BUN 13 7 - 18.7 mg/dL 11/23/2018 7:59 AM CDT [facility] Creatinine 0.92 0.55 - 1.02 mg/dL 11/23/2018 7:59 AM T [facility] Alkaline Phosphatase 66 40 - 150 U/L 11/23/2018 7:59 AM CDT [facility] ALT 50 13 - 61 U/L 11/23/2018 7:59 AM CDT [facility] AST 22 5 - 34 U/L 11/23/2018 7:59 AM CDT [facility] Protein Total 8.2 6.4 - 8.3 gm/dL 11/23/2018 7:59 AM CDT [facility] Albumin 4.2 3.5 - 5.2 gm/dL 11/23/2018 7:59 AM T [facility] Bilirubin Total 0.2 0.2 - 1.0 mg/dL 11/23/2018 7:59 AM CDT [facility] eGFR by MDRD >60 >60 mL/min/1.7 3m2 11/23/2018 7:59 AM CDT [facility] eGFR by MDRD >60 >60 mL/min/1.7 3m2 11/23/2018 7:59 AM CDT [facility] Blood BLOOD SPECIMEN / Unknown Venipuncture / Unknown 11/23/2018 7:38 AM CDT 11/23/2018 7:41 AM CDT [facility] - 11/23/2018 7:59 AM CDT Attention clinician: BUN Reference Range has changed. Pablo Shay MD LAB - CHEMISTRY BG DIALLO Performing Organization Address City/[facility]/ZIP Co de Phone Number [facility] [address] [place], [place] [phone] * (ABNORMAL) URINALYSIS REFLEX TO MICROSCOPIC NO CULTURE (05/29/2018 7:53 PM REFRACTORY SPECIALIST) Color UA Yellow Straw, Yellow 05/29/2018 8:28 PM [facility] Clarity UA Slt Cloudy(A) Clear 05/29/2018 8:28 PM [facility] Glucose UA Negative Negative 05/29/2018 8:28 PM [facility] Bilirubin UA Negative Negative 05/29/2018 8:28 PM [facility] Ketone UA Negative Negative 05/29/2018 8:28 PM [facility] Specific Kiefer UA 1.021 1.005 - 1.030 05/29/2018 8:28 PM [facility] Blood UA Negative Negative 05/29/2018 8:28 PM [facility] pH UA 7.0 5.0 - 8.0 pH 05/29/2018 8:28 PM [facility] Protein UA Negative Negative 05/29/2018 8:28 PM [facility] Urobilinogen UA Negative Negative mg/dL 05/29/2018 8:28 PM [facility] Nitrite UA Negative Negative 05/29/2018 8:28 PM [facility] Leukocyte UA Trace(A) Negative 05/29/2018 8:28 PM [facility] Urine Microscopy Urine microscopy to follow 05/29/2018 8:28 PM [facility] Urine URINE SPECIMEN OBTAINED BY CLEAN CATCH PROCEDURE / Unknown Collection / Unknown 05/29/2018 7:53 PM REFRACTORY SPECIALIST 05/29/2018 7:54 PM REFRACTORY SPECIALIST Narrative [facility] - 05/29/2018 8:28 PM REFRACTORY SPECIALIST Elyse Alcazar ORIENTAL RUG REPAIRER-SENIOR IT BUSINESS ANALYST LAB - URINAL YSIS ORDERABLES [facility] [address] [place], [place] [phone] * (ABNORMAL) URINE MICROSCOPIC ONLY (05/29/2018 7:53 PM REFRACTORY SPECIALIST) Pathologist [facility] RBC UA 3-5 None Seen, 0-2, 3-5 # /hpf 05/29/2018 8:28 PM REFRACTORY SPECIALIST [facility] WBC UA 11-20(A) None Seen, 0-5 # /hpf 05/29/2018 8:28 PM REFRACTORY SPECIALIST [facility] Bacteria UA None Seen None Seen 05/29/2018 8:28 PM REFRACTORY SPECIALIST [facility] Squamous Epithelial Cells 11-20(A) None Seen, 0-2, 3-5 /hpf 05/29/2018 8:28 PM REFRACTORY SPECIALIST [facility] Urine URINE SPECIMEN OBTAINED BY CLEAN CATCH PROCEDURE / Unknown Collection / Unknown 05/29/2018 7:53 PM REFRACTORY SPECIALIST 05/29/2018 7:54 PM REFRACTORY SPECIALIST Narrative [facility] - 05/29/2018 8:28 PM REFRACTORY SPECIALIST Elyse Alcazar APRN-SENIOR IT BUSINESS ANALYST LAB - URINAL YSIS ORDERABLES Performing Organization Address City/[facility]/ZIP Co de Phone Number [facility] [address] [place] [phone] * (ABNORMAL) TSH (05/29/2018 2:22 PM REFRACTORY SPECIALIST) [facility] TSH <0.005(L) 0.358 - 3.740 uIU/mL 05/29/2018 8:26 PM [facility] Blood BLOOD SPECIMEN / Unknown Venipuncture / Unknown 05/29/2018 2:22 PM REFRACTORY SPECIALIST 05/29/2018 3:13 PM REFRACTORY SPECIALIST Rajiv Bassett MD LAB - CHEMISTRY ORDERABLES [facility] [address] [place], [place] [phone] * T4 FREE (05/29/2018 2:22 PM REFRACTORY SPECIALIST) Pathologist [facility] T4 Free 1.18 0.65 - 1.34 ng/dL 05/29/2018 9:39 PM REFRACTORY SPECIALIST [facility] Blood BLOOD SPECIMEN / Unknown Venipuncture / Unknown 05/29/2018 2:22 PM REFRACTORY SPECIALIST 05/29/2018 3:13 PM REFRACTORY SPECIALIST Rajiv Bassett MD LAB - CHEMISTRY ORDERABLES [facility] [address] [place], [place] [phone] * US PELVIS W TRANSVAG W DOP NON OB (02/08/2018 3:33 PM CDT) Anatomical Region Laterality Modality Pelvis Ultrasound 02/08/2018 4:06 PM CDT Narrative 02/08/2018 4:09 PM CDT Examination: Ultrasound pelvis. Indication for examination: Left adnexal mass, pelvic pain. Dilated left fallopian tube. Ultrasound examination of the pelvis is performed with transabdominal and transvaginal technique with additional Doppler evaluation. Comparison is made with a recent CT scan. Uterus is grossly normal in size. No myometrial mass, endometrial thickening or endometrial fluid collection is identified. There are cysts at the cervix. Right ovary is normal in appearance. Blood flow is identified in the right ovary with Doppler evaluation. Examination of the left ovary reveals that the left ovary is mildly enlarged, with a volume of 17.5 cc. No focal cystic or solid left ovarian mass identified. I do not identify a dilated left fallopian tube on the basis of this examination to specifically correlate with findings on recent CT scan. There is no free fluid. CONCLUSION: Mildly enlarged left ovary. No focal cyst, fluid collection or definite dilated fallopian tube identified on the left side at this time to correlate with findings on recent CT scan. Normal-appearing uterus and right ovary. No free fluid. Reading Radiologist: Chris Pelaez MD on 02/08/2018 at 4:09 PM Procedure Note Chris Pelaez MD - 02/08/2018 Examination: Ultrasound pelvis. Indication for examination: Left adnexal mass, pelvic pain. Dilated left fallopian tube. Ultrasound examination of the pelvis is performed with transabdominal and transvaginal technique with additional Doppler evaluation. Comparison is made with a recent CT scan. Uterus is grossly normal in size. No myometrial mass, endometrial thickening or endometrial fluid collection is identified. There are cysts at the cervix. Right ovary is normal in appearance. Blood flow is identified in the right ovary with Doppler evaluation. Examination of the left ovary reveals that the left ovary is mildly enlarged, with a volume of 17.5 cc. No focal cystic or solid left ovarian mass identified. I do not identify a dilated left fallopian tube on the basis of this examination to specifically correlate with findings on recent CT scan. There is no free fluid. CONCLUSION: Mildly enlarged left ovary. No focal cyst, fluid collection or definite dilated fallopian tube identified on the left side at this time to correlate with findings on recent CT scan. Normal-appearing uterus and right ovary. No free fluid. Reading Radiologist: Chris Pelaez MD on 02/08/2018 at 4:09 PM Karma Baird DO US ORDERABLES * CT ABDOMEN AND PELVIS WITH IV CONTRAST (01/31/2018 7:58 PM CDT) Anatomical Region Laterality Modality Abdomen, Pelvis Computed Tomogra phy 01/31/2018 8:00 PM CDT Narrative 01/31/2018 8:[address] abdomen pelvis HISTORY: Pelvic and perineal pain TECHNIQUE: Multiple contiguous axial images of the abdomen pelvis were obtained following intervenous administration of 100 cc of Isovue-370. The liver, gallbladder, spleen, pancreas and adrenal glands are normal. The kidneys, ureters and bladder are normal. The uterus is grossly normal. There is a probable old dilated left fallopian tube. The right adnexa is normal. The large and small bowel including the appendix are normal without free air. There is minimal free pelvic fluid. The vascular structures enhance normally. The lung bases are clear. DIAGNOSIS: Likely dilated left fallopian tube Minimal free pelvic fluid Reading Radiologist: Stephen Young MD on 01/31/2018 at 8:03 PM Procedure Note Stephen Young MD - 01/31/2018 CT abdomen pelvis HISTORY: Pelvic and perineal pain TECHNIQUE: Multiple contiguous axial images of the abdomen pelvis were obtained following intervenous administration of 100 cc of Isovue-370. The liver, gallbladder, spleen, pancreas and adrenal glands are normal. The kidneys, ureters and bladder are normal. The uterus is grossly normal. There is a probable old dilated left fallopian tube. The right adnexa is normal. The large and small bowel including the appendix are normal without free air. There is minimal free pelvic fluid. The vascular structures enhance normally. The lung bases are clear. DIAGNOSIS: Likely dilated left fallopian tube Minimal free pelvic fluid Reading Radiologist: Stephen Young MD on 01/31/2018 at 8:03 PM Jad Gutiérrez DO CT ORDERABLES * CK + CKMB PANEL (01/31/2018 5:28 PM CDT) CK 130 35 - 232 U/L 01/31/2018 7:47 PM CDT [facility] CK-MB <1.0 0.0 - 5.0 ng/mL 01/31/2018 7:47 PM CDT [facility] Blood BLOOD SPECIMEN / Unknown Lab Venipuncture / Unknown 01/31/2018 5:28 PM CDT 01/31/2018 7:32 PM CDT Jad Gutiérrez DO LAB - CHEMISTRY OR DERABLES [facility] [address] [place] [address] Care Teams Electronic Maintenance Supervisor Relationship Specialty Start Date End Date Zeyad Lazaro MD [address] [place] [address] [address] [place] [address] PCP - General Family Medicine 09/13/23
--- OUTSIDE RECORDS SUMMARY | 2024-08-05 04:42 | XMS_ITS | Encounter Summary ---
Author Organization [facility] Address [address] [place] [address] Care Team Providers Care Cmm Technician Name Role Phone Unavailable Primary Care Provider Unavailabl e Encounter Details Date Type Department Care Team (Late st Contact Info) Description 08/02/2024 External Device Data [place] ABSTRACTION Provider, Abstract NO ADDRESS ON FILE Social History Tobacco Use Types Packs/Day Years Used Date Smoking Tobacco: Never Assessed Comments Unknown Sex and Gender Information Value Date Recorded Sex Assigned at Not on file Legal Sex Female 12:02 PM CDT Gender Identity Not on file Sexual Orientation Not on file documented as of this encounter Plan of Treatment Not on file documented as of this encounter Visit Diagnoses Not on filedocumented in this encounter
--- OUTSIDE RECORDS SUMMARY | 2024-08-05 04:42 | XMS_ITS | Clinical Summary ---
Author Organization [facility] Address [address] [place] [address] Care Team Providers Care Wireless Sales Representative Name Role Phone Zeyad Lazaro MD Primary Care Provider [phone] Source Comments [facility],non-owned Affiliates and Associated Physician Practices is amultiple site organization consisting of ambulatory clinics and hospital sitesin [place], [place], [place] and [place]. This disclosure is being madepursuant to the Care Everywhere program and may not contain all information available regarding this patient. Last updated 18.[facility] Allergies Active Allergy Reactions Criticality Noted Date Comments Metoclopramide Psychiatric Medium 09/19/2017 Tramadol Psychiatric Medium 09/19/2017 Medications * Be aware that medications may not be up to date on this document. Alwaysverify current medications with the patient. Medication Sig Dispensed Refills Start Date End Date Status acetaminophen (TYLENOL) 325 MG tablet Take 1 tablet by mouth every 4 hours as needed for Headache Maximum allowable Acetaminophen amount = 4 Grams (4000 mg) / 24 hours. 11/24/2018 Active topiramate (TOPAMAX) 25 MG tablet Take 1 tablet by mouth at bedtime 30 tablet 11/24/2018 Active sertraline (ZOLOFT) 100 MG tablet Take 0.5 tablets by mouth once daily 11/24/2018 Active clonazePAM (KlonoPIN) 1 MG tablet Take 1 (one) tablet by mouth 3 times daily 05/25/2022 Active HYDROcodone-acetam inophen ([place]) 5-325 MG tabletIndications: Sinus pain Take 1 (one) tablet by mouth every 8 hours as needed for Pain 9 tablet 09/13/2023 Active Active Problems Problem Noted Date Diagnosed Date Sepsis 11/23/2018 Family History Medical History Relation Name Comments Hypertension Mother Asthma Other Relation Name Status Comments Mother Other Social History Tobacco Use Types Packs/Day Years [...] Mass Index 37.37 09/13/2023 10:19 AM CDT Plan of Treatment Health Maintenance Due Date Last Done Comments PAP SMEAR 1987 HIV SCREENING 09/25/2002 HEPATITIS C SCREENING 09/21/2005 DTAP/TDAP/TD VACCINES (1 - Tdap) 09/25/2006 HEPATITIS B VACCINE (1 of 3 - 19+ 3-dose series) 09/25/2006 PNEUMOCOCCAL VACCINE (1 of 2 - PCV) 09/25/2006 COVID-19 VACCINE ( - 2023-2 5 season) 2024 INFLUENZA VACCINE (#1) 2024 DEPRESSION SCREENING 05/28/2024 ZOSTER VACCINE (1 of 2) 09/25/2037 HIB VACCINE Aged Out No longer eligi ble based on patient's age to complete this topic HPV VACCINE Aged Out No longer eligi ble based on patient's age to complete this topic MENINGOCOCCAL (Group B) VACCINE Aged Out No longer eligible based on patient's age to complete this topic MENINGOCOCCAL VACCINE Aged Out No liz bryn eligible based on patient's age to complete this topic Advance Directives * Full Code (Latest Code Status on File) Date Activated Date Inactivated Comments 11/23/2018 6:28 PM 11/24/2018 4:43 PM * Full Code Date Activated Date Inactivated Comments 11/23/2018 3:00 PM 11/23/2018 6:28 PM Care Teams Wireless Sales Representative Relationship Specialty Start Date End Date Zeyad Lazaro MD [address] [place] [address] PCP - General Family Medicine 09/13/23
--- OUTSIDE RECORDS SUMMARY | 2024-08-05 04:42 | XMS_ITS | Data Portability ---
Author Organization [place] [facility], Main Office Address [address] [place] [address] Care Team Providers Care Nanofabrication Specialist Name Role Phone NATHALIA MELTON Primary Care Provider NATHALIA METLON Referring Provider TANK KING Psychiatrist Assessment Encounter Date Assessment Date Assessment LastModified by Organization Details LastModified Time 06/25/2024 06/25/2024 38-year-old female presents for evaluation of her right shoulder. 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 She since then, she has had pain in the shoulder especially with lifting and raising her arm, and also laying on the shoulder. This disrupts her sleep at night. She also has difficulty with getting dressed and she reports the shoulder feels like it locks up. She tried a 3 month course of physical therapy after the injury but did not help. She has also had treatment with ibuprofen, oral steroids, and heat and ice. She previously saw another orthopedic surgeon who recommended surgery for a SLAP repair. She is here for another opinion. She currently rates her pain as 7/10. She currently smokes about half a pack a day. Review of systems per patient questionnaire Physical exam: She has tenderness over the AC joint and also over the deep anterior shoulder. Range of motion 140/30/lower lumbar. She has 5- out of 5 strength in external rotation elevation. Positive Juan. Positive Neer and Kaur. Pain with AC compression. Positive Katonah's. X-rays of the shoulder were reviewed, demonstrating no acute bony abnormality. MRI was reviewed, demonstrating a SLAP tear, minimal AC arthrosis She has exam findings consistent with a SLAP tear as well as pain over the AC joint. She has failed conservative management with physical therapy anti-inflammator ies so far. We discussed the next step would be to consider a cortisone injection for the shoulder. This would be both diagnostic and therapeutic and we can see how much improvement she gets with the injection. We will also try switching her to a different anti-inflammator y we gave her order for Celebrex. She wanted to proceed with the injection and had some immediate improvement afterwards. We will see her back in 6-8 weeks. At that point depending on the amount of relief she gets from the cortisone injection we can either continue conservative management or discuss surgery for SLAP or repair. If she continues have pain over the AC joint area, we can consider a cortisone injection there as well. We did discuss smoking cessation the effects of nicotine on healing, and that I would want her to be off nicotine prior to any elective surgery. 3 minutes were spent. Not available 06/25/2024 11:59:02 07/09/2024 07/09/2024 38-year-old female presents for follow-up of her right shoulder. We previously started with a course of conservative management with anti-inflammator ies and cortisone injection which she says did not help. This has been going on for a couple of years. A previous MRI from 2021 demonstrated a SLAP tear. She still has pain with lifting and loading of the shoulder. She has tenderness over the AC joint and also over the deep anterior shoulder. Range of motion 140/30/lower lumbar. She has 5- out of 5 strength in external rotation elevation. Positive Juan. Positive Neer and Kaur. Pain with AC compression. Positive Katonah's. Given her persistent symptoms failing conservative management including cortisone injection, I would like to send her for a new MR arthrogram to evaluate the labrum, given her previous 1 was 3 years ago. We would then discuss SLAP repair if she still had similar findings, or other treatments as needed. She does want to get this taken care of surgically. We discussed that she should continue to work on cutting back on smoking and that nicotine puts her at higher risk of complications including infection and wound problems. We will see her back after the scan. Not available 07/09/2024 12:35:12 08/04/2024 08/04/2024 07/02/2024: TSH 0.778L VIT D 15.8 Chol 220, LDL 153 [email or web address] Not available 08/04/2024 16:04:21 Plan of Treatment Reminders Order Date Submit Date Provider Last Modified By Organization Details Last Modified Time Details Appointments New Patient 40 2024 02:30P M SHANNON GastelumHNNoé Not available Not available Not available Follow Up 15 2024 02:00P M Nathalia martinez MD Not available Not available Not available Lab lipid panel, serum [address] (Lab), [address] [place], [address], 08/04/2024 16:06:03 CBC w/ auto diff [address] (Lab), [address] [place], [address], 08/04/2024 16:06:02 TSH, serum or plasma [address] (Lab), [address] [place], [address], 08/04/2024 16:06:03 CMP, serum or plasma [address] (Lab), [address] [place], [address], 08/04/2024 16:06:03 vitamin D, 25-hydrox y, total, serum [address] (Lab), [address] [place], [address], 08/04/2024 16:06:03 vitamin B12 + folate, serum or blood 2024 025 [email or web address] [facility] (Lab), [address] [place], [address], 08/04/2024 16:06:02 lipid panel, serum 2024 025 [facility] (Lab), [address] [place], [address], 07/02/2024 19:30:55 TSH, serum or plasma 2024 025 [facility] (Lab), [address] [place], [address], 07/02/2024 19:52:04 CBC w/ auto diff 2024 025 [facility] (Lab), [address] [place], [address], 07/02/2024 19:03:12 CMP, serum or plasma 2024 025 [facility] (Lab), [address] [place], [address], 07/02/2024 19:31:01 vitamin D, 25-hydrox y, total, serum [address] (Lab), [address] [place], [address], 07/17/2024 11:16:34 vitamin B12 + folate, serum or blood [address] (Lab), [address] [place], [address], 07/17/2024 11:16:34 lipid panel, serum [address] (Lab), [address] [place], [address], 07/17/2024 11:16:33 TSH, serum or plasma [address] (Lab), [address] [place], [address], 07/17/2024 11:16:33 CBC w/ auto diff [address] (Lab), [address] [place], [address], 07/17/2024 11:16:33 CMP, serum or plasma [address] (Lab), [address] [place], [address], 07/17/2024 11:16:33 vitamin D, 25-hydrox y, total, serum [address] (Lab), [address] [place], [address], 07/17/2024 11:16:34 vitamin B12 + folate, serum or blood [address] (Lab), [address] [place], [address], 07/17/2024 11:16:34 Referral obstetric irvas and gynecolog ist referral - Please call patient to schedule an appointme nt. Thank you 2024 025 GIOVANA Fernandez, [address] [facility] [address], [place], [address], 08/04/2024 19:36:22 psychiatr ist referral - Please call patient to schedule an appointme nt. Thank you. 2024 025 ANA Norton Pmhnp, [address] [facility] [address], [place], [address], 08/04/2024 19:11:44 orthopedi c surgeon referral - Please call patient to schedule an appointme nt. Thank you. 2024 025 [email or web address] Hollis Abreu MD, [address] [facility], [place], [address], 08/04/2024 18:41:14 obstetric rivas and gynecolog ist referral - Please call patient to schedule an appointme nt. Thank you 2024 025 anamika Fernandez, [address] [facility] [address], [place], [address], 07/30/2024 08:59:34 psychiatr ist referral - Please call patient to schedule an appointme nt. Thank you. 2024 025 anamika Norton Pmhnp, [address] [facility] [address], [place], [address], 07/30/2024 08:59:46 orthopedi c surgeon referral 2024 025 [email or web address] Hollis Abreu MD, [address] [facility], [place], [address], 07/02/2024 17:08:03 obstetric rivas and gynecolog ist referral - Please call patient to schedule. 2024 025 GIOVANA Espitia MD, [address] [facility] [address], [place], [address], 06/30/2024 18:10:38 pain managemen t referral - Please call patient to schedule. 2024 025 GIOVANA [facility], [address], [place], [address], 06/30/2024 18:01:04 psychiatr ist referral - Please call patient to schedule. 2024 025 ANA Fisher [employer], [address] [facility], [place], [address], 07/07/2024 11:20:56 orthopedi c surgeon referral 2024 025 ANA Abreu MD, [address] [facility], [place], [address], 06/25/2024 12:02:24 Procedures injection /aspirati on joint/bur sa (PROC) 2024 [email or web address] 1 In-Office Order, Internal Use Only DO Not Attach Compendium DO Not Attach Compendium, Do Not Delete/merge, [id number] 06/25/2024 11:39:33 Surgeries None recorded. Imaging MR, arthrogra m, shoulder - Please give patient disc [address] [facility] ([facility]), [address] [place], [address], 08/04/2024 16:35:37 XR, shoulder, 2 or more view 2024 025 [facility] [place], [address], [place], [address], 06/30/2024 10:19:05 Medication Orders Crestor 40 mg tablet 2024 025 [id number], [address] [facility], [place], [place], [id number], 08/04/2024 16:22:10 cholecalc iferol (vitamin D3) 1,250 mcg (50,000 unit) capsule 2024 025 [facility] #53592, [address] [facility], [place], [place], [id number], 08/04/2024 16:06:09 Celebrex 200 mg capsule 2024 025 [facility], [address] [place], [place], [id number], 06/30/2024 10:19:05 bupivacai ne HCl 0.5 % (5 mg/mL) injection solution 2024 025 [facility]41314, [address] [facility], [place], [place], [id number], 07/02/2024 14:11:00 Kenalog 10 mg/mL suspensio n for injection 2024 025 [facility] #19973, [address], [place], [place], [id number], 07/02/2024 14:11:07 Augmentin 875 mg-125 mg tablet 2024 025 [facility] #50801, [address] , [place], [place], [id number], 06/25/2024 09:32:51 Patient TargetsNo targets recorded. Patient InstructionsNo instructions recorded. Reason for Referral Psychiatrist Referral for Mi xed anxiety and depressive disorder Please call patient to schedule. Referring Physician: Nathalia Melton Internal Medicine, Encounter Date: 06/04/2024 Orthopedic Surgeon Referral for Pain of right shoulder joint Referring Physician: Nathalia Melton Internal Medicine, Encounter Date: 06/04/2024 Pain Management Referral for Low back pain Please call patient to schedule. Referring Physician: Nathalia Melton Internal Medicine, Encounter Date: 06/04/2024 Network Support And Gynecologis t Referral for Gynecologic examination Please call patient to schedule. Referring Physician: Nathalia Melton Internal Medicine, Encounter Date: 06/04/2024 Orthopedic Surgeon Referral for Pain of right shoulder joint Referring Physician: Nathalia Melton Internal Medicine, Encounter Date: 07/02/2024 Network Support And Gynecologis t Referral for Gynecologic examination Please call patient to schedule an appointment. Thank you Referring Physician: Nathalia Melton, Internal Medicine, Encounter Date: 07/02/2024 Psychiatrist Referral for Mi xed anxiety and depressive disorder Please call patient to schedule an appointment. Thank you. Referring Physician: Nathalia Melton, Internal Medicine, Encounter Date: 07/02/2024 Orthopedic Surgeon Referral for Pain of right shoulder joint Please call patient to schedule an appointment. Thank you. Referring Physician: Nathalia Melton Internal Medicine, Encounter Date: 08/04/2024 Network Support And Gynecologis t Referral for Gynecologic examination Please call patient to schedule an appointment. Thank you Referring Physician: Nathalia Melton Internal Medicine, Encounter Date: 08/04/2024 Psychiatrist Referral for Mi xed anxiety and depressive disorder Please call patient to schedule an appointment. Thank you. Referring Physician: Nathalia Melton Internal Medicine, Encounter Date: 08/04/2024 Results Created Date Observation Date Name Description Value Unit Range Abnormal Flag Note LastModifiedBy Organization Detail LastModifiedTime 06/25/19 25 XR, shoul yashira, 2 or more view No observ ation record ed. [email or web address] [facility] [place] [address] [facility] [facility] [address], [place], [address], 06/25/2024 09:34:27 Result Notes None recorded. Problems Name Problem SNOMED Code Status Onset Date Resolution Date Notes Provider Name and Address Organization Details Recorded Time Cigarette smoker 59237767 Active 2024 Nathalia martinez MD [address], [place], [address], [employer] 5 15:39:41 Mixed anxiety and depressive disorder 903336016 Active 2024 Nathalia martinez MD [address], [place], [address], [employer] 5 15:41:44 Vitamin D deficiency 40012562 Active 2024 Nathalia martinez MD [address], [place], [address], [employer] [facility] [employer] [facility] 5 15:42:07 Serum vitamin B12 below reference range 096198417 Active 2024 Nathalia martinez MD [address], [place], [address], [employer] [facility] [employer] [facility] 15:42:16 Pain of right shoulder joint 9559507580358 9100 Active 2024 Nathalia martinez MD [address], [place], [address], [employer] [facility] 5 16:04:25 Low back pain 375205107 Active 2024 Nathalia martinez MD [address], [place], [address], [employer] [facility] 16:04:47 Dental caries 26705658 Active 2024 Nathalia martinez MD [address], [place], [address], [employer] [facility] [employer] [facility] 5 16:21:23 Hyperlipide negro 33501959 Active 2024 Nathalia martinez MD [address], [place], [address], [employer] [facility] [employer] [facility] 5 16:05:10 Problem Notes None recorded. Procedures Surgical History Date Name Laterality Status Provider Name and Address Organization Details Recorded Time 06/25/19 25 Ortho - Cortisone Injection completed Hollis Abreu MD [address], [place], [address], [facility] [employer] [facility] 06/25/2024 11:59:34 completed GILA Winters [facility] [employer] [facility] 06/04/2024 15:31:16 Cholecystectomy completed GILA Winters [facility] [employer] [facility] 06/04/2024 15:31:26 Imaging Results Imaging Date Name Status LastModified by Organiz ation Details LastModified Time 06/25/2024 XR, shoulder, 2 or more view completed [email or web address] [facility] [place] [address], [place], [address], 06/25/2024 09:34:27 Procedure Notes None recorded. Medical Equipment None Reported. Allergies Allergen ID Allergen Name Allergen Category Reaction Reaction Severity Criticality Documentation Date Start Date Code Code System Note Provider Name and Address Organization Details Recorded Time 27567 Reglan medicatio n hallucina tions Not available Not available 06/25/2024 9230 RxNorm GILA Christopher, [facility] [employer] [facility] 09:32:08 00341 tramadol medicatio n hallucina tions Not available Not available 06/25/2024 12709 RxNorm GILA Christopher, [facility] [employer] [facility] 09:32:21 Medications Name Sig Start Date Stop [...] 1 mL by injection route. 07/02 completed [facility] [place]: [phone] Not Available Not Available [...] Not Avai lable Vitals Date Recorded Body weight Body mass index (BMI) Body height Body temperature Heart rate Systolic blood pressure Diastolic blood pressure Provider Name and Address Organization Details Last Updated DateTime 5 14839.8 1 g 34.4 kg/m2 154.94 cm 97.8 [degF] 78 /min 126 mm[Hg] 82 mm[Hg] Seema Goemz ANGELBrock [facility] [employer] [facility] 5 15:35:56 Date Recorded Body height Body mass index (BMI) Body weight Pain severity - 0-10 verbal numeric rating [Score] - Reported Provider Name and Address Organization Details Last Updated DateTime 06/25/2024 154.94 cm 34.4 kg/m2 96735.81 g 7 Maria Fernanda Banuelos [facility] [employer] [facility] 06/25/2024 09:31:49 Date Recorded Body height Body mass index (BMI) Body weight Body temperature Heart rate Systolic blood pressure Diastolic blood pressure Provider Name and Address Organization Details Last Updated DateTime 5 154.94 cm 34.2 kg/m2 83527.2 2 g 97.6 [degF] 78 /min 122 mm[Hg] 70 mm[Hg] Seema Gomez Brock [facility] [employer] [facility] 5 14:16:41 Date Recorded Body height Body mass index (BMI) Body weight Provider Name and Address Organization Details Last Updated DateTime 07/09/2024 154.94 cm 34.4 kg/m2 31720.81 g Audrey Treesa [facility] [employer] [facility] 07/09/2024 11:00:27 Date Recorded Body height Body mass index (BMI) Body weight Heart rate Oxygen saturation Oxygen saturation in Arterial blood by Pulse oximetry Systolic blood pressure Diastolic blood pressure Provider Name and Address Organization Details Last Updated DateTime 5 154.94 cm 34.4 kg/m2 18831.8 1 g 100 /min 99 % 99 % 120 mm[Hg] 80 mm[Hg] Maria Fernanda Banuelos [facility] [employer] [facility] 5 15:36:11 Social History Question Answer Notes LastModified by Organization Details LastModified Time Tobacco Smoking Status Current Every Day Smoker GILA Winters [facility] [employer] [facility] 06/04/2024 15:25:18 Do You Have An Advance [...] Or The Highest Degree You Have Received? 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 Unknown Information not available 06/04/2024 Are There Any Guns Present In Your Home? No Information not available 06/04/2024 Where Do You Live? [facility] Information not available 06/04/2024 Do You Have A Medical Power Of Keyseating Machine Set Up Operator? No Information not available 06/04/2024 What Was [...] Anxious, Or Unable To Sleep At Night)? [id number] Information not available 06/04/2024 Do You Use [...] DISEASE/DISORDER N HISTORY OF DRUG ABUSE N RADIATION / CHEMOTHERAPY N COPD N Other # 2 N BLOOD DISEASES N EAR OR HEARING PROBLEMS N MUMPS N SHINGLES N BOWEL PROBLEMS N DEPRESSION (INCLUDING POST ) Y FAILED BACK SYNDROME N STROKE/TIA N ULCERS [...] N CHRONIC PAIN SYNDROME N HYPOTHYROIDISM N CONSTIPATION N CAROTID BLOCKAGE N BACK / NECK PROBLEMS N HAVE YOU BEEN HOSPITALIZED OR SEEN IN [facility] IN THE PAST YEAR ? N [...] Details Recorded Time MMR 0 completed Seema Gomez, RMA null, [facility] 06/04/2024 15:21:31 MMR 1 completed Seema Gomez, RMA null, [facility] 06/04/2024 15:21:31 DT (pediatric) 0 completed Seema Gomez RMA null, [facility] 06/04/2024 15:21:31 DT (pediatric) 9 completed Seema Dale, RMA null, [facility] 06/04/2024 15:21:31 DT (pediatric) 8 completed Seema Jason, RMA null, [facility] 06/04/2024 15:21:31 DT (pediatric) 8 completed Seema Gomez RMA null, [facility] 06/04/2024 15:21:31 DT (pediatric) 3 completed Seema Jason, RMA null, [place] [facility] 06/04/2024 15:21:31 OPV 0 completed Seema Jason RMA null, [place] [facility] [place] [facility] 06/04/2024 15:21:31 OPV 8 completed Seema Dale, RMA null, [place] [facility] 06/04/2024 15:21:31 OPV 8 completed Seema Jason, RMA null, [place] [facility] 06/04/2024 15:21:31 OPV 3 completed Seema Dale, RMA null, [place] [facility] 06/04/2024 15:21:31 Td (adult), 2 Lf tetanus toxoid, preservative free, adsorbed 9 completed Seema Gomez RMA null, [place] [facility] 06/04/2024 15:21:31 Hep B, adolescent or pediatric 9 completed Seema Gomez RMA null, [place] [facility] 06/04/2024 15:21:31 Hep B, adolescent or pediatric 8 completed Seema Gomez RMA null, [place] [facility] 06/04/2024 15:21:31 Hep B, adolescent or pediatric 9 completed Seema Gomez RMA null, [place] [facility] 06/04/2024 15:21:31 Influenza, split virus, trivalent, PF 5 completed Nathalia Melton MD [address] [place] [address], [address], [facility] 06/23/2024 14:21:40 Past Encounters Encounter ID Performer Location Encounter Start Date Encounter Closed Date Diagnosis/Indication Diagnosis SNOMED-CT Code Diagnosis ICD10 Code Diagnosis Note [id number] Nathalia lutz MD [facility] [address] [place] [address] 06/04/2024 14:55:26 06/04/2024 16:11:01 Screening - NAD 798776902 Z13.9 PAP: Get this Get yearly flu shot, can do Tdap if not doneCan do COVID 19 boosters RTC in one month, do labs, ER if worse, she is very appreciati ve to this plan of care Cigarette smoker 7883876 7 F17.210 Advised to quit! declined any NRT Mixed anxi ety and depressive disorder 473057910 F41.8 On clonazepam On duloxetine 60mg dailySees her psychiatri st in [place], want to see in [facility], referred 06/04/2024 Hyperlipid emia screening 654737234 Z13.220 Vitamin D deficiency 347 76877 E55.9 Serum tanna min B12 below reference range 739472404 R79.89 Pain of ri ght shoulder joint 1788993352 0143527 M25.511 Will refer to ortho Low back pain 635960942 M54.50 Will refer to pain management , advised to keep and take her MRI reports to pain management Gynecologi c examination 98324896 Z01.419 Dental caries 73413099 K 02.9 Needs to keep her apt with dentist, will get on augmentin po all side effects explained to her Administra tion of influenza vaccine 81269271 Z23 [id number] Hollis Abreu MD [facility] [place] [address] [place] [address] 06/25/2024 09:11:36 06/25/2024 11:40:32 Pain of right shoulder joint 3970643853 3875711 M25.506 [id number] Nathalia lutz MD [facility] [address] [facility] [address] [place] [address] 07/02/2024 13:57:42 07/02/2024 14:47:44 Screening - NAD 284505889 Z13.9 PAP: Get this Get yearly flu shot, can do Tdap if not doneCan do COVID 19 boosters RTC in one month, do labs, ER if worse, she is very appreciati ve to this plan of care Cigarette smoker 2225796 7 F17.210 Advised to quit! declined any NRT Mixed anxi ety and depressive disorder 283651808 F41.8 On clonazepam , filled by Mike King 06/06/2024 for #90 tabletsOn duloxetine 60mg dailyNot suicidal or homicidalS ees her psychiatri st [place], want to see in [facility], referred 06/04/2024 , 07/02/2024 Hyperlipid emia screening 317033886 Z13.220 Vitamin D deficiency 347 44459 E55.9 Serum tanna min B12 below reference range 435717492 R79.89 Pain of ri ght shoulder joint 2378151292 3238176 M25.511 Dr Rouse on celebrex, f/u apt 08/27/2024 Now needs to see Dr Abreu [facility] again as the shot or the meds are not helping her Low back pain 940397383 M54.50 Referred to pain management , advised to keep and take her MRI reports to pain management , was referred last OV, today 07/02/2024 states that she has been given paper work to fill out and she just got it today for the pain management to see her, advised to fill out the paperwork so she can be seen JAMIE Gynecologi c examination [id number] Z01.290 [id number] Hollis Abreu MD [facility] [facility] [address] [place] [address] 07/09/2024 10:49:49 07/09/2024 12:08:32 Pain of right shoulder joint [id number] M25.065 [id number] Nathalia lutz MD [facility] Primary Care [facility] [address] [facility] [facility] [facility] [address] [address] [place] [address] 08/04/2024 15:20:15 08/04/2024 16:25:01 Screening - NAD [id number] Z13.9 PAP: Get this Get yearly flu shot, can do Tdap if not doneCan do COVID 19 boosters RTC in 3 months, do labs, ER if worse, she is very appreciati ve to this plan of care Cigarette smoker [id number] F17.210 Advised to quit! declined any NRT Mixed anxi ety and depressive disorder [id number] F41.8 On clonazepam , filled by Mike King 06/06/2024 for #90 tabletsOn duloxetine 60mg daily filled by Mike KingNot suicidal or homicidalS ees her psychiatri st in [place], will again refer to Marie Norton NP Vitamin D deficiency [phone] [id number] E55.9 Get on vit d and repeat the labs Serum tanna min B12 below reference range [id number] R79.89 Pain of ri ght shoulder joint [id number] M25.511 Dr Rouse on celebrex, f/u apt 08/27/2024 [address] needs to see Dr Lois AYALA again as the shot or the meds are not helping her OV 08/04/2024 : Get MR arthrogam Low back pain [id number] M54.50 Referred to pain management , advised to keep and take her MRI reports to pain management , was referred last OV, today 07/02/2024 states that she has been given paper work to fill out and she just got it today for the pain management to see her, advised to fill out the paperwork so she can be seen JAMIE Gynecologi c examination [id number] Z01.419 Hyperlipidemia [id number] E78.5 Get on crestor 40mg daily, more diet and exerciseGe t labs Health Concerns Section Related Observation LastModified by Organization Detai ls LastModified Time None Recorded Concern Status LastModified by Organization Details LastModified Time None Recorded Advance Directives Directive N: Payers Encounter Date Sequence Insurance Name Policy Number Policy Galloway Covered Member ID Galloway Member ID Guarantor Name 06/04/2024 2 [place] [employer] [place] Quenetta Salcedo [id number] Quenetta Salcedo 06/04/2024 1 [facility] ON OR AFTER 11/25/20 (MEDICAID REPLACEMENT - HMO) Quenetta Salcedo [id number] Quenetta Salcedo 06/25/2024 1 [facility] - DOS ON OR AFTER 20 (MEDICAID REPLACEMENT - HMO) Quenetta Salcedo [id number] Quenetta Salcedo 07/02/2024 1 [facility] - DOS ON OR AFTER 20 (MEDICAID REPLACEMENT - HMO) Quenetta Salcedo [id number] Quenetta Salcedo 07/09/2024 1 [facility] ON OR AFTER 11/25/20 (MEDICAID REPLACEMENT - HMO) Lawrence Hoppert [id number] Lawrence Salcedo 08/04/2024 1 [facility] - DOS ON OR AFTER 20 (MEDICAID REPLACEMENT - HMO) Lawrence Salcedo [id number] Lawrence Salcedo Notes Date Note Type Note Provider Name and Address Organization Details Recorded Time 06/04/2024 text/html OV 06/04/2024:He re to establish care Present Hx:LBPR shoulder painAnxiety depression Here to discuss above, states that she was involved in a work related accident in [address] 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 [employer] [facility] [employer] 06/23/2024 14:22:09 07/02/2024 text/html OV 06/04/2024:He re to establish care Present Hx:LBPR shoulder painAnxiety depression Here to discuss above, states that she was involved in a work related accident in [address] 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, achyness, no neuropathy or radiculopathy, states that in 2020 she did have a MRI and was seen by her KO MD and given steroids, but the pain [...] not yet seen her psychiatrist as the [place] psychiatrist required her to be seen by PCP twice prior to scheduling an appointment, she is quite upset at this and would like an appointment to psychiatry JAMIE Nathalia Melton MD [address] [facility], [place], [address], [place] [facility] 07/02/2024 16:55:54 08/04/2024 text/html OV 06/04/2024:He re to establish care Present Hx:LBPR shoulder painAnxiety depression Here to discuss above, states that she was involved in a work related accident in 2020 at [employer] and now has R shoulder and LBPR shoulder pain is sharp and increases with raising her arm and lying on the shoulder, 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 08/04/2024 18:02:38 OBGyn Episode No OBEpisode recorded.
--- OUTSIDE RECORDS SUMMARY | 2024-08-05 04:42 | XMS_ITS | Referral Summary ---
Author Organization [facility] [employer] Address [address] [place] [address] Care Team Providers Care Aesthetician Name Role Phone Zeyad Lazaro MD Primary Care Provider [phone] Source Comments [facility] [facility],non-owned Affiliates and Associated Physician Practices is amultiple site organization consisting of ambulatory clinics and hospital sitesin [place], [place], [place] and [place]. This disclosure is being madepursuant to the Care Everywhere program and may not contain all information available regarding this patient. Last updated 18.[facility] Allergies Active Allergy Reactions Criticality Noted Date [...] 3 times daily 05/25/2022 Active HYDROcodone-acetam inophen ([place]) 5-325 MG tabletIndications: Sinus pain Take 1 [...] 09/13/2023 10:19 AM CDT Plan of Treatment Not on file Advance Directives * Full Code (Latest Code Status on File) Date Activated Date Inactivated Comments 11/23/2018 6:28 PM 11/24/2018 4:43 PM * Full Code Date Activated Date Inactivated Comments 11/23/2018 3:00 PM 11/23/2018 6:28 PM Care Teams Aesthetician Relationship Specialty Start Date End Date Zeyad Lazaro MD [address] [phone] PCP - General Family Medicine 09/13/23
[2024-08-05 04:45] LABS: Creatine Kinase 138 U/L (30-135); Magnesium 1.9 mg/dL (1.6-2.3)
[2024-08-05 05:17] VITALS: BP 122/80; PULSE 85; RESP 15; O2SAT 100
[2024-08-05 06:00] VITALS: BP 118/84; PULSE 82; RESP 15; O2SAT 100
== END 2024-08-05 06:08 | disposition home or self-care (01) ==
PROVIDERS: Emergency Provider Emergency Medicine; PCP Emergency Medicine
DX: R07.89 Other chest pain (principal); M62.838 Other muscle spasm; K21.9 Gastro-esophageal reflux disease without esophagitis; F41.9 Anxiety disorder, unspecified; F32.A Depression, unspecified; F17.210 Nicotine dependence, cigarettes, uncomplicated
CPT/HCPCS: 36415; 71045; 80053; 81025; 82550; 83690; 83735; 84484; 85025; 85610; 85730; 93005; 96360; 99284; J7030

== ENCOUNTER 2024-09-29 17:34 | Emergency (ER) | payer OTHER, SELFPAY ==
[2024-09-29 17:41] VITALS: BP 138/76; PULSE 89; RESP 20; TEMP 36.8; O2SAT 100
--- NOTE | 2024-09-29 17:59 | ED.URI ---
HPI - URI/Sore Throat General Chief Complaint: Upper Respiratory Infection Stated Complaint: Sore Throat/Nose Bleeds Source: patient Mode of arrival: ambulatory Limitations: no limitations History of Present Illness HPI Narrative: Patient is a 39 old woman presents of a sore throat, body aches, chills x3 days. She states that her son has a respiratory infection right now, so she believes that she does as well. Denies any difficulty swallowing, fevers, or shortness of breath. Related Data Home Medications ?Medication ?Instructions ?Recorded ?Confirmed ?Last Taken ?Type duloxetine 60 mg capsule,delayed mg PO 09/29/24 Unknown History release hydroxyzine pamoate 25 mg capsule mg 09/29/24 Unknown History Allergies Allergy/AdvReac Type Severity Reaction Status Date / Time metoclopramide AdvReac Intermediate HALLUCINATI Verified 09/29/24 18:01 ONS tramadol AdvReac Mild Confusion Verified 09/29/24 18:01 Review of Systems Review of Systems: CONSTITUTIONAL: Denies fever or sweats. Reports body aches, chills. EYES: Denies visual changes, redness, or discharge. ENT: Reports sore throat. Denies rhinorrhea, congestion, or otalgia. CARDIOVASCULAR: Denies chest pain, palpitations, or edema. RESPIRATORY: Denies dyspnea. GASTROINTESTINAL: Denies abdominal pain, nausea, vomiting, or diarrhea. SKIN: Denies rash. NEUROLOGIC: Denies headache. All systems reviewed & are unremarkable except as noted in HPI and below PMFSH Past Medical History Medical History GERD (gastroesophageal reflux disease) History of ovarian cyst Anxiety Depression Surgical History Surgical History Hx of section Family History Family History Mother Hypertension Grandparent Hypertension Diabetes mellitus Other Asthma Social History Social History Smoking packs per day: 0.5 Smoking cigarettes per day: 10.0 Smoking status: Current every day smoker Substance use: never Gender identity (if verbalized by the patient): Female Comments At time of signature, I have reviewed and agree with nursing past medical, surgical, social and family history unless otherwise noted. Please see nursing chart for further information. There is no relevant family history pertinent to the presenting complaint. Exam Narrative: GENERAL: well-appearing, ?no acute distress. EYES: ?conjunctivae clear. ENT: Mucous membranes moist. TM pearly hunter with normal light reflex bilaterally; no tragal tenderness. Oropharynx erythematous without lesions. Tonsils not enlarged and without exudate. No drooling, no hoarseness, no trismus, uvula midline. No tripod positioning, hot potato voice, or soft palate swelling. NECK: Supple. No lymphadenopathy. CHEST: Clear to auscultation, breath sounds equal. ?No respiratory distress, speaks in full sentences. HEART: Regular rate and rhythm. No murmur heard. SKIN: Warm, dry, no rash. NEURO: Alert and oriented x3.? Course Course Level of Care: Express Care Visit Vital Signs Vital signs: Vital Signs Temperature 98.2 F 09/29/24 17:41 Pulse Rate 89 09/29/24 17:41 Respiratory Rate 20 09/29/24 17:41 Blood Pressure 138/76 09/29/24 17:41 Pulse Oximetry 100 09/29/24 17:41 Oxygen Delivery Room Air 09/29/24 17:41 Temperature 98.2 F 09/29/24 17:41 Pulse Rate 89 09/29/24 17:41 Respiratory Rate 20 09/29/24 17:41 Blood Pressure 138/76 09/29/24 17:41 Pulse Oximetry 100 09/29/24 17:41 Oxygen Delivery Room Air 09/29/24 17:41 MDM - URI/Sore Throat MDM Narrative Medical decision making narrative: Discussed physical exam findings. Albuterol refilled for patient for asthma. Advised supportive measures and signs/symptoms to go to the ER. Pt is appropriate for outpatient treatment and follow up. Differential Diagnosis Differential diagnosis: Likely upper respiratory infection, sinusitis, viral infection, bronchitis, influenza and other (covid, strep) Critical Care Time Critical Care Time Critical Care Time: No Discharge Plan Discharge Clinical Impression: Upper respiratory infection Qualifiers: URI type: unspecified viral URI Qualified Code(s): J06.9 - Acute upper respiratory infection, unspecified Patient Disposition: Home Condition: Stable Instructions: Upper Respiratory Infection (DC) Additional Instructions: Use inhaler as prescribed. Recommend Flonase spray and Zyrtec (or Claritin/Sanjuanita) Tylenol every 8 hours as needed for pain Symptomatic treatment includes: rest, fluids, and increase humidity of the air at home. Follow up with your primary care provider in 1 week. Go to the ER for worsening symptoms or concerns. Patient Language: Bulgarian Prescriptions: New albuterol sulfate [Ventolin HFA] 90 mcg/actuation HFA aerosol inhaler 2 puff inhalation QID PRN (Reason: shortness of breath or wheezing) Qty: 6.7 0RF No Action hydroxyzine pamoate 25 mg capsule duloxetine 60 mg capsule,delayed release(DR/EC) PO Follow-up/Referrals: Zeyad Lazaro MD [Primary Care Provider] - Stand Alone Forms: Work/School Release IP Time of Disposition: 18:20
== END 2024-09-29 18:23 | disposition home or self-care (01) ==
PROVIDERS: PCP Emergency Medicine
DX: J06.9 Acute upper respiratory infection, unspecified (principal); Z20.822 Contact with and (suspected) exposure to COVID-19; K21.9 Gastro-esophageal reflux disease without esophagitis
CPT/HCPCS: 87081; 87637; 87651; 87804; 99213; G0463

== ENCOUNTER 2024-10-09 17:08 | Emergency (ER) | payer OTHER, SELFPAY ==
[2024-10-09] VITALS (40 sets, daily range): BP systolic 103–141; BP diastolic 71–103; PULSE 96–117; RESP 14–43; TEMP 36.9; O2SAT 94–100
--- NOTE | ~2024-10-09 | XR_ITS ---
XR chest 1V portable Ordering provider: Oskar Aldrich MD History: 39 years Female with . repeat, eval R diaphragm . Comparison: None. FINDINGS: MEDIASTINUM: The cardiac silhouette is slightly enlarged. Congestive taryn. LUNGS: No effusions or pneumothorax. Right basilar atelectasis versus pneumonia. Prominent markings in the left lung base which may indica te early pneumonia. OTHER: No free air under the diaphragm. IMPRESSION: Right basilar atelectasis versus pneumonia. Prominent markings in the left lung base which may indicate atelectasis versus early pneumonia. Reviewed, dictated and finalized at location A.
--- NOTE | ~2024-10-09 | XR_ITS ---
XR chest 1V portable Ordering provider: Oskar Aldrich MD History: 39 years Female with . sob AFTER RIGHT ROTATOR CUFF SURGERY EARLIER TODAY . Comparison: August 05, 2024 FINDINGS: MEDIASTINUM: The cardiac silhouette is slightly enlarged. Elevation of the right hemidiaphragm. LUNGS: No effusions or pneumothorax. Prominent markings in the left lower lobe area. Early pneumonia is not excluded. Follow-up advised. OTHER: No free air under the diaphragm. IMPRESSION: Prominent markings in the left lower lobe area which may indicate atelectasis versus pneumonia. Follo w-up and clinical correlation advised. Reviewed, dictated and finalized at location A. IMPRESSION: Prominent markings in the left lower lobe area which may indicate atelectasis v ersus pneumonia. Follow-up and clinical correlation advised.
--- OUTSIDE RECORDS SUMMARY | 2024-10-09 17:11 | XMS_ITS | Clinical Summary ---
Author Organization [facility] Address [address] [place] [id number] Care Team Providers Care Carpet Binder Name Role Phone Nathalia Melton MD Primary Care Provider Allergies Active Allergy Reactions Criticality Noted Date [...] needed for Pain. 100 mL 01/24/2024 Active methocarbamol (ROBAXIN-750) 750 MG Tab Take 1 tablet (750 mg total) by mouth every 8 (eight) hours as needed. 30 tablet 08/07/2024 Active amoxicillin-cla vulanate (AUGMENTIN) 875-125 MG tablet Take 1 tablet (875 mg total) by mouth 2 (two) times daily for 10 days. 20 tablet 10/03/2024 Active HYDROcodone-johnnie taminophen (NORCO) 5-325 MG tabletIndicatio ns:Acute Pain < 3 Day Supply Take 1 tablet by mouth every 6 (six) hours as needed. Indications : Acute Pain < 3 Day Supply 12 tablet 10/03/2024 Encounters Date Type Department Care Team Description 10/03/2024 10:12 PM CDT - 10/03/2024 10:24 PM CDT [facility] [place] [address] Roxane Cancino PA Dental Pain Discharge Disposition: Home or Self Care (Routine Discharge) 10/03/2024 Travel 08/07/2024 11:29 AM CDT - 08/07/2024 3:14 PM CDT [facility] [place] [address] Cornelia Escalante FNP Leg Pain Discharge Disposition: Home or Self Care (Routine Discharge) 08/07/2024 Travel from Last 3 Months Social History Tobacco Use Types Packs/Day Years Used Date Smoking Tobacco: Every Day Cigarettes Passive Smoke Exposure: Never Smokeless Tobacco: Never Tobacco Cessation:Ready to Q uit: No; Counseling Given: Yes Alcohol Use Standard Drinks/Week Comments Yes 0 (1 standard drink = 0.6 oz pur e alcohol) Comments No Sex and Gender Information Value Date Recorded Sex Assigned at Female 08/07/2024 11:26 AM CDT Legal Sex Female 4:38 PM CDT Gender Identity Not on file Sexual Orientation Not on file Last Filed Vital Signs Vital Sign Reading Time Taken Comments Blood Pressure 127/99 10/03/2024 9:57 PM CDT Pulse 118 10/03/2024 9:57 PM CDT Temperature 36.6 C (97.8 F) 10/03/2024 9:57 PM CDT Respiratory Rate 16 10/03/2024 9:57 PM CDT Oxygen Saturation 100% 10/03/2024 9:57 PM CDT Inhaled Oxygen Concentration - - Weight 77.4 kg (170 lb 10.2 oz) 10/03/2024 9:57 PM CDT Height 152.4 cm (5') 10/03/2024 9:57 PM CDT Body Mass Index 33.33 10/03/2024 9:57 PM CDT Plan of Treatment Health Maintenance Due Date Last Done Comments Cervical Cancer Screening Pap Smear (Age 30 to 64) Every 3 Years 1987 Annual Physical 09/25/1990 DTaP, Tdap and Td Vaccines (2 - Tdap) 03/17/1999 03/16/1999, 03/03/1993, 06/05/1989, Additional history exists Hepatitis C 09/25/2005 Pneumococcal Vaccine: Pediatrics (0 to 5 Years) and At-Risk Patients (6 to 49 Years) (1 of 2 - PCV) 09/25/2006 Cervical Cancer Screening Pap with HPV Testing (Age 30 to 64) Every 5 Years 09/25/2017 Cervical Cancer Screening with HPV 09/25/2017 COVID-19 Vaccine ( season) 2024 Hepatitis B Vaccines Completed 03/16/1999, 06/21/1998, [...] on patient's age to complete this topic Procedures Procedure Name Priority Date/Time Associated Diagnosis Comments CTA CHEST PE PROTOCOL STAT 08/07/2024 2:07 PM CDT USV ROXANE DUPLEX LOW EXT LT STAT 08/07/2024 2:04 PM CDT POCT URINE (BACK OFFICE) STAT 08/07/2024 12:17 PM CDT XR CHEST PORTABLE STAT 08/07/2024 11: 56 AM CDT ECG 12-LEAD Routine 08/07/2024 11:45 AM CDT HC URINALYSIS AUTO W/O MICRO STAT 08/07/2024 11:41 AM CDT TROPONIN, QUANT STAT 08/07/2024 11:41 AM CDT D-DIMER, QUANTITATIVE STAT 08/07/2024 11:41 AM CDT CK (CPK) STAT 08/07/2024 11:41 AM CDT COMPREHENSIVE METABOLIC PANEL STAT 08/07/2024 11:41 AM CDT CBC W/DIFF AUTOMATED STAT 08/07/2024 11:41 AM CDT from Last 3 Months Results * CTA CHEST PE PROTOCOL (08/07/2024 2:07 PM CDT) Anatomical Region Laterality Modality Chest Computed Tomogra phy 08/07/2024 2:11 PM CDT Impressions 08/07/2024 2:12 PM CDT IMPRESSION: 1. No evidence of pulmonary embolism. No acute findings. Ordered By: CORNELIA ESCALANTE Interpreted By: Benedict Hooper MD, 08/07/2024 2:11 PM Narrative 08/07/2024 2:12 PM [address] [address] CTA CHEST WITH CONTRAST PULMONARY EMBOLISM PROTOCOL Clinical history: Shortness of breath. Technique: Dynamic helical images of the chest were obtained after the patient received 80 mL of Isovue 370 nonionic intravenous contrast through an IV in the left antecubital fossa. Images are reviewed in axial, sagittal, and three-dimensional reformatted views. A dose lowering technique was used for this procedure, which may include, but is not limited to, dose reduction technique, automated exposure control, the use of iterative reconstruction, and ALARA (As Low As Reasonably Achievable) / Image Gently techniques. 3-D MIP formatted images were also obtained and are made available for review. Comparison: without prior studies available for comparison. FINDINGS: The obtained images demonstrate good opacification of the pulmonary vasculature. No intraluminal filling defects are observed. There is no evidence of pulmonary embolism. The heart appears normal in size and morphology. No significant pericardial effusion is seen. No pathologically enlarged lymph nodes are present within the mediastinum or taryn. No axillary adenopathy is observed. The great vessels are within normal limits. Pulmonary windows reveal the lungs to be clear bilaterally. No acute consolidations, effusions, or significant pulmonary nodules are observed. Images of the upper abdomen demonstrate the visualized portion of liver, spleen, and adrenal glands to be within normal limits. Procedure Note Benedict Hooper MD - 08/07/2024 [facility] [address] [place], [place] [address] CTA CHEST WITH CONTRAST PULMONARY EMBOLISM PROTOCOL Clinical history: Shortness of breath. Technique: Dynamic helical images of the chest were obtained after thepatient received 80 mL of Isovue 370 nonionic intravenous contrast throughan IV in the left antecubital fossa. Images are reviewed in axial,sagittal, and three-dimensional reformatted views. A dose loweringtechnique was used for this procedure, which may include, but is notlimited to, dose reduction technique, automated exposure control, the useof iterative reconstruction, and ALARA (As Low As Reasonably Achievable) /Image Gently techniques. 3-D MIP formatted images were also obtained and are made available forreview. Comparison: without prior studies available for comparison. FINDINGS: The obtained images demonstrate good opacification of the pulmonaryvasculature. No intraluminal filling defects are observed. There is noevidence of pulmonary embolism. The heart appears normal in size and morphology. No significantpericardial effusion is seen. No pathologically enlarged lymph nodes arepresent within the mediastinum or taryn. No axillary adenopathy isobserved. The great vessels are within normal limits. Pulmonary windows reveal the lungs to be clear bilaterally. No acuteconsolidations, effusions, or significant pulmonary nodules areobserved. Images of the upper abdomen demonstrate the visualized portion of liver,spleen, and adrenal glands to be within normal limits. IMPRESSION: 1. No evidence of pulmonary embolism. No acute findings. Ordered By: CORNELIA ESCALANTE Interpreted By: Benedict Hooper MD, 08/07/2024 2:11 PM us Cornelia Escalante SENIOR SQL DBA CT Final Resul t * USV ROXANE DUPLEX LOW EXT LT (08/07/2024 2:04 PM CDT) Anatomical Region Laterality Modality Vascular Ultraso und 08/07/2024 1:48 PM CDT Narrative 08/07/2024 5:13 PM CDT VENOUS DUPLEX IMAGING LEFT LOWER EXTREMITY VASCULAR LAB Pat.Name: FABIAN BONILLA Pat.ID: [id number] St.Date: 08/07/2024 Refer.MD: Zeyad Swift Exam Time: 1:48:00 PM Study Type:ELLIOTT VS Venous Duplex Leg Lt Age: 5 1985,38Y Sex: F Sonogrphr: Radha Toth RVT Pat. Stat.:Outpatient History / Clinical:Left anterior thigh pain, elevated D-Dimer 1025, no swelling or injury No prior Procedures: Haley scale, Color Doppler imaging, Doppler Spectral Analysis Race: B ++++++++++++++++++++++++++++++++++++ SUMMARY: ++++++++++++++++++++++++++++++++++++ Left leg: There are NO apparent, deep or superficial vein, ACUTE character venous filling defects visualized in the femoral, popliteal, deep calf or proximal saphenous veins. Resting venous flow is normal phasic proximally. Right leg LIMITED: Resting venous flow is normal phasic at the common femoral. CONCLUSION: No DVT in the left lower extremity. <Electronic Signature> 08/07/2024 05:13 PM Debora Rosen M.D. Procedure Note Debora Rosen MD - 08/07/2024 VENOUS DUPLEX IMAGING LEFT LOWER EXTREMITY VASCULAR LAB Pat.Name: FABIAN BONILLA Pat.ID: [id number] St.Date: 08/07/2024 Refer.MD: Zeyad Swift Exam Time: 1:48:00 PM Study Type:ELLIOTT VS Venous Duplex Leg Lt Age: 5 1985,38Y Sex: F Sonogrphr: Radha Toth RVT Pat. Stat.:Outpatient History / Clinical:Left anterior thigh pain, elevated D-Dimer 1025, no swelling or injury No prior Procedures: Haley scale, Color Doppler imaging, Doppler Spectral Analysis Race: B ++++++++++++++++++++++++++++++++++++ SUMMARY: ++++++++++++++++++++++++++++++++++++ Left leg: There are NO apparent, deep or superficial vein, ACUTE character venous filling defects visualized in the femoral, popliteal, deep calf or proximal saphenous veins. Resting venous flow is normal phasic proximally. Right leg LIMITED: Resting venous flow is normal phasic at the common femoral. CONCLUSION: No DVT in the left lower extremity. <Electronic Signature> 08/07/2024 05:13 PM Dbeora Rosen M.D. Cornelia Escalante SENIOR SQL DBA US VASC Final Resul t * POCT urine (08/07/2024 12:17 PM CDT) Pathologist [facility] URINE HCG TEST NEGATIVE Internal Control: VALID Alex Verma PA-C POINT OF CARE TEST ORDERABL ES Final Result * XR CHEST PORTABLE (08/07/2024 11:56 AM CDT) Anatomical Region Laterality Modality Chest Radiographic Margret ging 08/07/2024 12:0 6 PM CDT Impressions 08/07/2024 12:10 PM CDT IMPRESSION: No acute pulmonary infiltrate or consolidation. No acute pulmonary vascular congestion. Ordered By: ALEX VERMA Interpreted By: Beka Puga, 08/07/2024 12:06 PM Narrative 08/07/2024 12:[address] [address] IMAGING STUDIES: XR CHEST PORTABLE DATE: 08/07/2024 11:35 AM HISTORY: sob 38-year-old female. Shortness of breath and dizziness. Bruising and pain of the left thigh. No history of DVT. Reported recent [facility] emergency department visit with laboratory evaluation and EKG and reported diagnosis of hypertension, hypercholesterolemia, and low vitamin D. COMPARISON: No pertinent comparison at this institution. DISCUSSION: Portable AP upright view of the chest. Heart size is within normal limits. No acute pulmonary vascular congestion. No acute pulmonary infiltrate, pulmonary consolidation, pleural effusion, or pneumothorax. No acute skeletal abnormality. Procedure Note Beka Puga MD - 08/07/[address] [address] IMAGING STUDIES: XR CHEST PORTABLEDATE: 08/07/2024 11:35 AM HISTORY: sob 38-year-old female. Shortness of breath and dizziness.Bruising and pain of the left thigh. No history of DVT. [facility] evaluationand EKG and reported diagnosis of hypertension, hypercholesterolemia, andlow vitamin D. COMPARISON: No pertinent comparison at this institution. DISCUSSION: Portable AP upright view of the chest. Heart size is within normal limits. No acute pulmonary vascularcongestion. No acute pulmonary infiltrate, pulmonary consolidation, pleural effusion,or pneumothorax. No acute skeletal abnormality. IMPRESSION: No acute pulmonary infiltrate or consolidation. No acute pulmonaryvascular congestion. Ordered By: ALEX VERMA Interpreted By: Beka Puga, 08/07/2024 12:06 PM us Alex Verma [facility] Final Resul t * ECG 12 lead (08/07/2024 11:45 AM CDT) 08/07/2024 11:4 5 AM CDT Narrative [facility] RAD - 08/07/2024 10:09 PM [address] Test Date: 2024-08-07 Pat Name: FABIAN BONILLA Department: 41 Room: [id number] Gender: Female Pharmacy Informatics Specialist: : 1985 Requested By: ALEX VERMA Order Number: [id number] Reading : Marcos Petit Measurements Intervals [place] Rate: 94 P: 54 ME: 153 QRS: 42 QRSD: 67 T: 38 QT: 317 QTc: 398 Interpretive Statements SINUS RHYTHM WITH SINUS ARRHYTHMIA NONSPECIFIC T-WAVE ABNORMALITY No previous ECG available for comparison No ischemic changes Preliminary EKG Interpretation by DAPHNEY Lowery Procedure Note Marcos Petit MD - 08/07/[address] Test Date: 2024-08-07 Pat Name: FABIAN BONILLA Department: 41 Room: [facility] Gender: Female Pharmacy Informatics Specialist: : 1985 Requested By: ALEX VERMA Order Number: [id number] Reading MD: Marcos Petit Measurements Intervals [place] Rate: 94 P: 54 ME: 153 QRS: 42 QRSD: 67 T: 38 QT: 317 QTc: 398 Interpretive Statements SINUS RHYTHM WITH SINUS ARRHYTHMIA NONSPECIFIC T-WAVE ABNORMALITY No previous ECG available for comparison No ischemic changes Preliminary EKG Interpretation by DAPHNEY Lowery us Alex Verma PA-C ECG ORDERABLES Final Resul t Performing Organization Address City/State/[facility] Co de Phone Number [facility] RAD * URINALYSIS (08/07/2024 11:41 AM CDT) SPECIMEN TYPE URINE CLEAN CATCH 08/07/2024 11:[address] [facility] COLOR (U) LIGHT YELLOW 08/07/2024 12:[address] [facility] TRANSPARENCY CLEAR 08/07/2024 12:[address] [facility] SPECIFIC GRAVITY (U) 1.013 1.001 - 1.030 08/07/2024 12:[address] [facility] U PH 5.5 5.0 - 9.0 08/07/2024 12:[address] [facility] LEUKOCYTES (U) NEGATIVE NEGATIVE 08/07/2024 12:[address] [facility] NITRITES NEGATIVE NEGATIVE 08/07/2024 12:[address] [facility] PROTEIN RANDOM (U) NEGATIVE <30 MG/DL 08/07/2024 12:[address] [facility] GLUCOSE (U) NORMAL NORMAL MG/DL 08/07/2024 12:[address] [facility] KETONES MG/DL (U) NEGATIVE NEGATIVE MG/DL 08/07/2024 12:[address] [facility] UROBILINOGEN NORMAL NORMAL MG/DL 08/07/2024 12:[address] [facility] BILIRUBIN (U) NEGATIVE NEGATIVE MG/DL 08/07/2024 12:[address] [facility] BLOOD (U) NEGATIVE NEGATIVE 08/07/2024 12:[address] [facility] URINE SPECIMEN OBTAINED BY CLEAN CATCH PROCEDURE / Unknown 08/07/2024 11:41 AM CDT us Alex Verma PA-C URINE ORDERABLES Final Resu lt [facility] [address] [place] [address], [place] [phone] * (ABNORMAL) COMPREHENSIVE METABOLIC PANEL (08/07/2024 11:41 AM CDT) GLUCOSE 84 70 - 99 MG/DL 08/07/2024 12:[address] [facility] BUN 7 7 - 18 MG/DL 08/07/2024 12:[address] [facility] CREATININE S/P/B 0.86 0.55 - 1.02 MG/DL 08/07/2024 12:[address] [facility] SODIUM S/P/B 136 136 - 145 MMOL/L 08/07/2024 12:[address] [facility] POTASSIUM S/P/B 3.8 3.5 - 5.1 MMOL/L 08/07/2024 12:[address] [facility] CHLORIDE S/P/B 109 97 - 115 MMOL/L 08/07/2024 12:[address] [facility] CO2 23.4 21 - 32 MMOL/L 08/07/2024 12:[address] [facility] CALCIUM S/P/B 9.2 8.5 - 10.1 MG/DL 08/07/2024 12:[address] [facility] BILIRUBIN TOTAL S/P/B 0.2 0.2 - 1.2 MG/DL 08/07/2024 12:[address] [facility] Comment: THIS ASSAY IS NOT RECOMMENDED FOR PATIENTS UNDERGOING TREATMENT WITH ELTROMBOPAG DUE TO THE POTENTIAL FOR FALSELY ELEVATED RESULTS. TOTAL PROTEIN S/P/B 8.4(H) 6.4 - 8.2 G/DL 08/07/2024 12:[address] [facility] ALBUMIN S/P/B 3.7 3.4 - 5.0 G/DL 08/07/2024 12:[address] [facility] AST 10(L) 15 - 37 U/L 08/07/2024 12:[address] [facility] ALT 14 14 - 55 U/L 08/07/2024 12:[address] [facility] ALKALINE PHOSPHATASE S/P/B 93 50 - 136 U/L 08/07/2024 12:[address] [facility] ANION GAP 3.6 2 - 10 MMOL/L 08/07/2024 12:[address] [facility] BUN CREATININE RATIO 8.1 6 - 26 08/07/2024 12:[address] [facility] A/G RATIO 0.8(L) 1.0 - 2.0 RATIO 08/07/2024 12:[address] [facility] GFR ESTIMATE 90(L) >90 ML/MIN/1.7 3 M2 08/07/2024 12:[address] [facility] Comment: NOTE: eGFR is not calculated for patients <18 years of age or gender unknown. This is an estimated GFR calculation using the new CKD EPI creatinine equation without race and so does not require a correction factor for race. This estimated GFR should not be used for calculating drug doses. 08/07/2024 11:4 1 AM CDT us Alex Verma PA-C LABORATORY Final Resul t [facility] [address] [place] [address], [place] [phone] * (ABNORMAL) D-DIMER, QUANTITATIVE (08/07/2024 11:41 AM CDT) Pathologist [facility] D-DIMER 1,025(HH) 0 - 500 ng{FEU}/mL 08/07/2024 12:[address] [facility] Comment: D-Dimer values less than or equal to 500 ng/mL FEU have a negative predictive value of >95% for exclusion of deep vein thrombosis and pulmonary embolism. In patients over 50 (who tend to have higher normal baseline D-Dimer values), recent studies suggest age-adjusted D-Dimer cutoff values (calculated as: age [years] x 10 ng/mL) result in equivalent outcomes and no additional false negative findings. Successful Call: DDIMR called 08/07/2024 12:16 PM to EMERGENCY ROOM ([id number]/NITA HALEY) by [id number]. 08/07/2024 11:4 1 AM CDT us Alex Verma PA-C LABORATORY Final Resul t [facility] [address] [place] [address], [place] [phone] * (ABNORMAL) CBC W/DIFF AUTOMATED (08/07/2024 11:41 AM CDT) WBC 8.22 4.5 - 11.0 x10'3/uL 08/07/2024 12:[address] [facility] RBC 4.24 4.20 - 5.40 x10'6/uL 08/07/2024 12:[address] [facility] HGB 11.5(L) 12.0 - 16.0 G/DL 08/07/2024 12:[address] [facility] HCT 36.3(L) 38.0 - 48.0 % 08/07/2024 12:[address] [facility] MCV 85.6 81.0 - 99.0 FL 08/07/2024 12:[address] [facility] MCH 27.1 27.0 - 31.0 PG 08/07/2024 12:[address] [facility] MCHC 31.7(L) 32.0 - 36.0 G/DL 08/07/2024 12:[address] [facility] RDW 17.5(H) 11.5 - 14.5 % 08/07/2024 12:[address] [facility] PLT 451(H) 130 - 400 x10'3/uL 08/07/2024 12:[address] [facility] MPV 9.3 9.3 - 12.2 FL 08/07/2024 12:[address] [facility] DIFFERENTIAL TYPE AUTOMATED DIFFERENTIAL 08/07/2024 12:[address] [facility] NEUTROPHILS % 49.7 % 08/07/2024 12:[address] [facility] LYMPHOCYTES % 39.8 % 08/07/2024 12:[address] [facility] MONOCYTES % 7.2 % 08/07/2024 12:[address] [facility] EOSINOPHILS 2.8 % 08/07/2024 12:[address] [facility] BASOPHILS 0.1 % 08/07/2024 12:[address] [facility] IMMATURE GRANS % 0.4 % 08/08/19 12:[address] [facility] ABS. NEUTROPHILS 4.09 1.80 - 7.70 x10'3/uL 08/07/2024 12:[address] [facility] ABS. LYMPHOCYTES 3.27 1.00 - 4.80 x10'3/uL 08/07/2024 12:[address] [facility] ABS. MONOCYTES 0.59 0.24 - 0.86 x10'3/uL 08/07/2024 12:[address] [facility] ABS. EOSINOPHILS 0.23 0.04 - 0.36 x10'3/uL 08/07/2024 12:[address] [facility] ABS. BASOPHILS 0.01 0.01 - 0.08 x10'3/uL 08/07/2024 12:[address] [facility] ABS. IMMATURE GRANULOCYTES 0.03 0.00 - 0.49 x10'3/uL 08/07/2024 12:[address] [facility] 08/07/2024 11:4 1 AM CDT Alex Verma PA-C LABORATORY Final Resul t Performing Organization Address [facility] Co de Phone Number [facility] [address] [place] [address], [place] [phone] * TROPONIN, QUANT (08/07/2024 11:41 AM CDT) TROPONIN I HIGH SENSITIVITY <3 <54 ng/L 08/07/2024 12:[address] [facility] Comment: HIGH DOSES OF BIOTIN, TROPONIN-SPECIFIC AUTOANTIBODIES, AND ANTIBODY THERAPY CONTAINING HAMA MAY INTERFERE WITH THIS TEST RESULT. CORRELATION TO CLINICAL HISTORY AND PRESENTATION RECOMMENDED. 08/07/2024 11:4 1 AM CDT us Alex Verma PA-C LABORATORY Final Resul t Performing Organization Address [facility] Co de Phone Number [facility] [address] [place] [address], [place] [phone] * CK (CPK) (08/07/2024 11:41 AM CDT) CPK 107 21 - 215 U/L 08/07/2024 12:[address] [facility] 08/07/2024 11:4 1 AM CDT us Alex Verma PA-C LABORATORY Final Resul t Performing Organization Address City/[facility] Co de Phone Number [facility] [address] [place] [address], from Last 3 Months Insurance [employer] Care Teams Carpet Binder Relationship Specialty Start Date End Date Nathalia Melton MD [address] [address] PCP - General INTERNAL MEDICINE 10/03/24
--- OUTSIDE RECORDS SUMMARY | 2024-10-09 17:11 | XMS_ITS | Clinical Summary ---
Author Organization [facility] Address [address] [place] [address] Care Team Providers Care Hand Packer/Packager Name Role Phone Unavailable Primary Care Provider Unavailabl e Encounters Date Type Department Care Team Description 09/09/2024 External Device Data [facility] ABSTRACTION Provider, Abstract 08/13/2024 External Device Data [facility] Provider, Abstract 08/13/2024 External Device Data [facility] Provider, Abstract 08/02/2024 External Device Data [facility]CTION Provider, [...] of 3 - 19+ 3-dose series) 09/25/2006 HPV/Cotest (21-29) 09/25/2008 CERVICAL CANCER SCREENING 09/25/2017 HPV/Cotest (30-65) 09/25/2017 PAP SMEAR 09/25/2017 INFLUENZA VACCINE (#1) 2023 HPV VACCINES Aged Out No longer eligi ble based on patient's age to complete this topic Insurance [employer]
--- OUTSIDE RECORDS SUMMARY | 2024-10-09 17:11 | XMS_ITS | Clinical Summary ---
Author Organization [facility] Address [address] [place] [address] Care Team Providers Care Independent Insurance Adjuster Name Role Phone Zeyad Lazaro MD Primary Care Provider [phone] Source Comments [facility],non-owned Affiliates and Associated Physician Practices is amultiple site organization consisting of ambulatory clinics and hospital sitesin [place], [place], [place] and [place]. This disclosure is being madepursuant to the Care Everywhere program and may not contain all information available regarding this patient. Last updated 18.[facility] Allergies Active Allergy Reactions Criticality Noted Date Comments Metoclopramide Psychiatric Medium 09/19/2017 Tramadol Psychiatric Medium 09/19/2017 Medications * Be aware that medications may not be up to date on this document. Alwaysverify current medications with the patient. acetaminophen (TYLENOL) 325 MG tablet Take 1 tablet by mouth every 4 hours as needed for Headache Maximum allowable Acetaminophen amount = 4 Grams (4000 mg) / 24 hours. 9 Active topiramate (TOPAMAX) 25 MG tablet Take 1 tablet by mouth at bedtime 30 tablet 9 Active sertraline (ZOLOFT) 100 MG tablet Take 0.5 tablets by mouth once daily 9 Active clonazePAM (KlonoPIN) 1 MG tablet Take 1 (one) tablet by mouth 3 times daily 2 Active HYDROcodone-ac etaminophen ([place]) 5-325 MG tabletIndicati ons:Sinus pain Take 1 (one) tablet by mouth every 8 hours as needed for Pain 9 tablet 4 Active Active Problems Problem Noted Date Diagnosed [...] at Not on file Legal Sex Female 5:57 PM CDT Gender Identity Not on file [...] of 2 - PCV) 09/25/2006 COVID-19 VACCINE (1 - 2023-2 5 season) 2024 DEPRESSION SCREENING 05/28/2024 INFLUENZA VACCINE (Season Ended) 2025 ZOSTER VACCINE (1 of 2) 09/25/2037 HIB VACCINE Aged Out No longer eligi ble based on patient's age to complete this topic HPV VACCINE Aged Out No longer eligi ble based on patient's age to complete this topic MENINGOCOCCAL (Group B) VACC INE SHARED DECISION-MAKING Aged Out No longer eligibl e based on patient's age to complete this topic MENINGOCOCCAL GROUPS A/C/Y/W VACCINE Aged Out No longer eligible b ased on patient's age to complete this topic Insurance [facility] Advance Directives * Full Code (Latest Code Status on File) Date Activated Date Inactivated Comments 11/23/2018 6:28 PM 11/24/2018 4:43 PM * Full Code Date Activated Date Inactivated Comments 11/23/2018 3:00 PM 11/23/2018 6:28 PM Care Teams Independent Insurance Adjuster Relationship Specialty Start Date End Date Zeyad Lazaro MD [address] [place] [id number] PCP - General Family Medicine 09/13/23
--- NOTE | 2024-10-09 17:38 | ECG_ITS ---
Test Date: 2024-10-09 17:44:30 Measurements Intervals [place] Rate: 107 P: 59 RI: 150 QRS: 38 QRSD: 72 T: 8 QT: 315 QTc: 421 Interpretive Statements SINUS TACHYCARDIA LOW QRS VOLTAGE IN PRECORDIAL LEADS [QRS DEFLECTION < 1.0 mV IN CHEST LEADS] NONSPECIFIC T-WAVE ABNORMALITY ABNORMAL ECG Electronically Signed On 10-10-2024 09:49:38 CDT by Mamadou Garcia M.D.
--- OUTSIDE RECORDS SUMMARY | 2024-10-09 19:24 | XMS_ITS | Data Portability ---
Author Organization [place] - [facility] [employer], Main Office Address [address] [place] [address] Care Team Providers Care Retail Sales Clerk Name Role Phone NATHALIA MELTON Primary Care Provider [phone] NATHALIA MELTON Referring Provider [phone] TANK VALLADARES Psychiatrist [phone] Assessment Encounter Date Assessment Date Assessment LastModified by Organization Details LastModified Time 07/09/2024 07/09/2024 38-year-old female presents for follow-up [...] and Kaur. Pain with AC compression. Positive Ralston's. Given her persistent symptoms failing conservative management [...] VIT D 15.8 Chol 220, LDL 153 Not available 08/04/2024 16:04:21 08/27/2024 08/27/2024 38-year-old female presents for follow-up of her right shoulder. We got an MRI to reassess her previous SLAP tear. She still reports having pain and weakness of the shoulder, currently rates her pain as 3/10. She is also getting treated for her back and is starting PT for that later this week. Tenderness over the anterior shoulder. No significant tenderness over the AC joint. Range of motion 140/30/lower lumbar. She has positive Ralston's. Negative Juan. Positive Neer and Kaur. Positive speed and Yergason's. MRI was reviewed, demonstrating signal within the superior and anterior labrum. Intact rotator cuff. Given her persistent symptoms failing conservative management including cortisone injection, the next step would be to do surgery for shoulder arthroscopy, debridement, biceps tenodesis, possible subacromial decompression. Risks, benefits, and alternatives to surgery were discussed with the patient. Risks include but are not limited to pain, stiffness, infection, bleeding, blood clot, injury to other structures including nerves or blood vessels, need for future surgery, and anesthesia risks. We discussed the goal of surgery is to improve symptoms but there is no guarantee of improvement and it is possible the patient's condition is worse after surgery. Patient agreed and would like to proceed. We specifically discussed the risk of nicotine for increasing complications, and she stated that she understands the risks but her symptoms are severe enough that she wants surgery now rather than waiting to be off nicotine 1st. Not available 08/27/2024 12:28:59 09/24/2024 09/24/2024 07/02/2024: TSH 0.778L VIT D 15.8 Chol 220, LDL 153 Not available 09/24/2024 16:27:05 Plan of Treatment Reminders Order Date Submit Date Provider Last Modified By Organization Details Last Modified Time Details Appointments Surgery 2024 08:00A M Hollis Abreu MD Not available Not available Not available Post-Op 10 2024 09:00A Paolo Don NP Not available Not available Not available Follow Up 15 2024 02:00P Paolo martinez MD Not available Not available Not available Lab vitamin D, 25-hydrox y, total, serum [address] [facility] (Lab), [address] [place], [address], 09/25/2024 08:08:45 lipid panel, serum [address] [facility] (Lab), [address] [place], [address], 09/25/2024 08:08:46 CBC w/ auto diff [address] [facility] (Lab), [address] [place], [address], 09/25/2024 08:08:45 TSH, serum or plasma [address] [facility] (Lab), [address] [place], [address], 09/25/2024 08:08:46 CMP, serum or plasma [address] [facility] (Lab), [address] [place], [address], 09/25/2024 08:08:46 vitamin B12 + folate, serum or blood [address] [facility] (Lab), [address] [place], [address], 09/25/2024 08:08:45 lipid panel, serum [email or web address] (Lab), [address] [place], [address], 08/13/2024 16:48:02 CBC w/ auto diff [address] (Lab), [address] [place], [address], 08/13/2024 16:48:12 TSH, serum or plasma [address] (Lab), [address] [place], [address], 08/13/2024 16:48:22 CMP, serum or plasma [address] (Lab), [address] [place], [address], 08/13/2024 16:48:30 vitamin D, 25-hydrox y, total, serum [address] (Lab), [address] [place], [address], 08/13/2024 16:47:43 vitamin B12 + folate, serum or blood [address] (Lab), [address] [place], [address], 08/13/2024 16:47:53 lipid panel, serum 2024 025 [facility] (Lab), [address] [place], [address], 07/02/2024 19:30:55 TSH, serum or plasma 2024 025 [facility] (Lab), [address] [place], [address], 07/02/2024 19:52:04 CBC w/ auto diff 2024 025 [facility] (Lab), [address] [place], [address], 07/02/2024 19:03:12 CMP, serum or plasma 2024 025 [facility] (Lab), [address] [place], [address], 07/02/2024 19:31:01 vitamin D, 25-hydrox y, total, serum [address] (Lab), [address] [place], [address], 07/17/2024 11:16:34 vitamin B12 + folate, serum or blood [address] (Lab), [address] [place], [address], 07/17/2024 11:16:34 Referral obstetric rivas and gynecolog ist referral - Please call patient to schedule an appointme nt. Thank you 2024 025 GIOVANA Lucero Jim, [address] [place] [address] [address], [address], [address], 09/24/2024 16:58:17 psychiatr ist referral - Please call patient to schedule an appointme nt. Thank you. 2024 025 ANA Marie Cierra Pmhnp, [address] [facility] [address], [address], 10/01/2024 12:08:28 obstetric rivas and gynecolog ist referral - Please call patient to schedule an appointme nt. Thank you 2024 025 GIOVANA Martinezalen, [address] [facility] [address], [place], [address], 08/04/2024 19:36:22 psychiatr ist referral - Please call patient to schedule an appointme nt. Thank you. 2024 025 ANA Marie Norton Pmhnp, [address] [facility] [address], [place], [address], 08/05/2024 10:18:29 orthopedi c surgeon referral - Please call patient to schedule an appointme nt. Thank you. 2024 025 ANA Abreu MD, [address] [facility], [place], [address], 08/27/2024 12:30:31 obstetric rivas and gynecolog ist referral - Please call patient to schedule an appointme nt. Thank you 2024 025 cruzsky Fernandez, [address] [facility] [address], [place], [address], 07/30/2024 08:59:34 psychiatr ist referral - Please call patient to schedule an appointme nt. Thank you. 2024 025 anamika Norton Pmhnp, [address] [facility] [address], [place], [address], 07/30/2024 08:59:46 orthopedi c surgeon referral 2024 025 hrrafael Abreu MD, [address] [facility], [place], [address], 07/02/2024 17:08:03 Procedures None recorded. Surgeries None recorded. Imaging MR, arthrogra m, shoulder - Please give patient disc 2024 025 [facility] ([facility] Call Scheduling), [address], [place], [address], 08/21/2024 16:12:02 Medication Orders Crestor 40 mg tablet 2024 025 [id number], [address] [facility], [place], [place], [id number], 09/24/2024 15:54:21 cholecalc iferol (vitamin D3) 1,250 mcg (50,000 unit) capsule 2024 025 [id number], [address] [facility], [place], [place], [id number], 08/04/2024 16:06:09 Patient TargetsNo targets recorded. Patient Instructions Encounter Date Encounter Id Patient Instructions Last Modified By Organization Details Last Modified Time 09/24/2024 [id number] Thank you for your visit to our office today. We would like to request that you reach out to your referring or previous provider and request that they send us a Summary of Care in electronic form, so that we may have it on file in your medical record. At your visit, we had the medical records we needed to provide you with the best possible care; however, for insurance purposes, an electronic Summary of Care is beneficial. Thank you for your assistance in obtaining this information and we look forward to providing continued care to you. Please review your medication list from the Summary of Care for this visit. If there are any differences from what you are currently taking at home, please call us to discuss. rubens Not available 09/24/2024 15:49:17 Homebound Status : {{Patient has an inability to leave the home without a taxing effort and assistance from another person Does not meet homebound status}} Required Home Health Services: {{none nursing home, physical therapy, occupational therapy nursing home, physical therapy nursing home}} Durable Medical Equipment needed: {{cane walker wal ker with seat manual wheelchair bedsid e commode oxygen}} Billing Guidelines CPT code 36683- Transitional Care Management services with moderate medical decision complexity (wmad-[id number] visit within 14 days of discharge). CPT code 54691- Transitional Care Management services with high medical decision complexity (juzz-xn-jilg visit within 7 days of discharge). [email or web address] Not available 09/24/2024 15:49:17 Reason for Referral Orthopedic Surgeon Referral for Pain of right shoulder joint Referring Physician: Nathalia Melton, Internal Medicine, Encounter Date: 07/02/2024 High Speed Printer Operator And Gynecologis t Referral for Gynecologic examination Please call patient to schedule an appointment. Thank you Referring Physician: Nathalia Melton, Internal Medicine, Encounter Date: 07/02/2024 Psychiatrist Referral for Mi xed anxiety and depressive disorder Please call patient to schedule an appointment. Thank you. Referring Physician: Nathalia Melton Internal Medicine, Encounter Date: 07/02/2024 Orthopedic Surgeon Referral for Pain of right shoulder joint Please call patient to schedule an appointment. Thank you. Referring Physician: Nathalia Melton Internal Medicine, Encounter Date: 08/04/2024 High Speed Printer Operator And Gynecologis t Referral for Gynecologic examination Please call patient to schedule an appointment. Thank you Referring Physician: Nathalia Melton Internal Medicine, Encounter Date: 08/04/2024 Psychiatrist Referral for Mi xed anxiety and depressive disorder Please call patient to schedule an appointment. Thank you. Referring Physician: Nathalia Melton Internal Medicine, Encounter Date: 08/04/2024 High Speed Printer Operator And Gynecologis t Referral for Gynecologic examination Please call patient to schedule an appointment. Thank you Referring Physician: Nathalia Melton Internal Medicine, Encounter Date: 09/24/2024 Psychiatrist Referral for Mi xed anxiety and depressive disorder Please call patient to schedule an appointment. Thank you. Referring Physician: Nathalia Melton Internal Medicine, Encounter Date: 09/24/2024 Results Created Date Observation Date Name Description Value Unit Range Abnormal Flag Note LastModifiedBy Organization Detail LastModifiedTime 06/25/19 25 XR, shoul yashira, 2 or more view No observ ation record ed. [facility] [place] [address] [facility] [address], [place], [address], 06/25/2024 09:34:27 08/22/19 25 08/21/2024 MR, arthr ogram , shoul yashira No observ ation record ed. [email or web address] ([facility] Call Scheduling) [address] [place], [address], 08/21/2024 16:12:03 08/22/19 25 08/21/2024 imagi ng/di agnos tic resul t No observ ation [facility] ed[facility] [address] [place], [address], 08/21/2024 15:59:08 08/22/19 25 08/21/2024 imagi ng/di agnos tic resul t No observ ation record ed. [email or web address] [facility] [address] [place], [address], 09/04/2024 13:32:28 08/22/19 25 08/21/2024 MR, isidro ware , treva yashira No observ ation record ed. [facility] [address] [place], [address], 09/04/2024 13:32:39 Result Notes None recorded. Problems Name Problem SNOMED Code Status Onset Date Resolution Date Notes Provider Name and Address Organization Details Recorded Time Cigarette smoker 58177246 Active 2024 Nathalia martinez MD [address], [address], [facility] 15:39:41 Mixed anxiety and depressive disorder 399136607 Active 2024 Nathalia martinez MD [address] [facility] [place] [address], [place], [address], [facility] 15:41:44 Vitamin D deficiency 97245782 Active 2024 Nathalia martinez MD [address], [address], [facility] 15:42:07 Serum vitamin B12 below reference range 378401374 Active 2024 Nathalia martinez MD [address] [facility] [address], [place], [address], [facility] 5 15:42:16 Pain of right shoulder joint 1114905229147 9100 Active 2024 Nathalia martinez MD [address], [place], [address], [facility] 5 16:04:25 Low back pain 348544027 Active 2024 Nathalia martinez MD [address], [place], [address], [facility] 16:04:47 Dental caries 97844759 Active 2024 Nathalia martinez MD [address], [place], [address], [facility] 16:21:23 Hyperlipide negro 19126599 Active 2024 Nathalia martinez MD [address], [place], [address], [facility] 16:05:10 Atrial fibrillatio n 23935895 Active 2024 GILA Winters [facility], [facility] 18:17:52 Problem Notes None recorded. Procedures Surgical History Date Name Laterality Status Provider Name and Address Organization Details Recorded Time 06/25/19 25 Ortho - Cortisone Injection completed Hollis Abreu MD [address], [place], [address], [facility] 06/25/2024 11:59:34 completed GILA Winters [facility] 06/04/2024 15:31:16 Cholecystectomy completed GILA Winters [place] - [facility] 06/04/2024 15:31:26 Imaging Results Imaging Date Name Status LastModified by Organiz ation Details LastModified Time 06/25/2024 XR, shoulder, 2 or more view completed [email or web address] [facility] [place] [address], [place], [address], 06/25/2024 09:34:27 08/21/2024 MR, arthrogram, shoulder completed [email or web address] [facility] ([facility] Call Sched[facility]) [address] [place], [address], 08/21/2024 16:12:03 08/21/2024 imaging/diagn ostic result active ANA [facility] [address] [place], [address], 08/21/2024 15:59:08 08/21/2024 imaging/diagn ostic result active [email or web address] [facility] [address] [place], [address], 09/04/2024 13:32:28 08/21/2024 MR, arthrogram, shoulder completed [email or web address] [facility] [address] [place], [address], 09/04/2024 13:32:39 Procedure Notes None recorded. Medical Equipment None Reported. Allergies Allergen ID Allergen Name Allergen Category Reaction Reaction Severity Criticality Documentation Date Start Date Code Code System Note Provider Name and Address Organization Details Recorded Time 60915 Reglan medicatio n hallucina tions Not available Not available 06/25/2024 9230 RxNorm GILA Christopher burrp! [facility] 5 09:32:08 52559 tramadol medicatio n hallucina tions Not available Not available 06/25/2024 31015 RxNorm GILA Christopher [employer] 09:32:21 92132 rosuvasta tin medicatio n other Not available Not available 09/24/2024 45377 2 RxNorm Leg pain, Chest pain, Short ness of breTYRON Vann burrp! [facility] [employer] 15:59:35 Medications Name Sig Start Date Stop Date Status Note LastModified by Organization Details LastModified Time celecoxib 200 mg capsule TAKE 1 CAPSULE BY MOUTH EVERY DAY 08/21 completed Not Available Not Available Not Available ibuprofen 800 mg tablet TAKE 1 [...] TAKE 1 TABLET BY MOUTH EVERY DAY NEEDED 09/24 completed Not Available Not Available Not Available sertraline 100 mg tablet TAKE 1 TABLET BY MOUTH EVERY DAY 06/25 completed Not Available Not Available Not Available clonazepam 1 mg tablet TAKE 1 TABLET BY MOUTH TWICE DAILY NEEDED active Not Available Not Available No t Available acetaminoph en 300 mg-codeine 15 mg tablet TAKE 1 TABLET BY MOUTH EVERY 8 HOURS 09/24 completed Not Available Not Available Not Available amoxicillin 500 mg tablet TAKE 1 TABLET BY MOUTH EVERY 8 HOURS 08/21 completed Not Available Not Available Not Available amoxicillin 875 mg tablet TAKE 1 TABLET BY MOUTH EVERY 12 HOURS FOR 7 DAYS 06/25 completed Not Available Not Available Not Available Kenalog 10 mg/mL suspension for injection Take 1 mL by injection route. 07/02 completed [facility] [place]: 0003- 0494- 20 Not Available Not Available Not Available gabapentin 300 mg capsule 09/24 completed Not Available Not Available Not Available sertraline [...] Not Available Not Available No t Available rosuvastati n 40 mg tablet TAKE 1 TABLET BY MOUTH EVERY DAY 09/24 completed Not Available Not Available Not Available duloxetine 30 mg capsule,del ayed release TAKE 1 CAPSULE BY MOUTH EVERY DAY 06/25 completed Not Available Not Available Not Available duloxetine 60 mg capsule,del ayed release TAKE 1 CAPSULE BY MOUTH EVERY DAY active Not Available Not Available No t Available chlorhexidi ne gluconate 0.12 % mouthwash RINSE TWICE DAILY FOR 30 SECONDS 09/24 completed Not Available Not Available Not Available cholecalcif maurice (vitamin D3) 1,250 mcg (50,000 unit) capsule TAKE 1 CAPSULE BY MOUTH ONCE WEEKLY active Not Available Not Available No t Available Vitals Date Recorded Body height Body mass index (BMI) Body weight Body temperature Heart rate Systolic blood pressure Diastolic blood pressure Provider Name and Address Organization Details Last Updated DateTime 5 154.94 cm 34.2 kg/m2 15811.2 2 g 97.6 [degF] 78 /min 122 mm[Hg] 70 mm[Hg] Seema Gomez [facility] [employer] [facility] 5 14:16:41 Date Recorded Body height Body mass index (BMI) Body weight Provider Name and Address Organization Details Last Updated DateTime 07/09/2024 154.94 cm 34.4 kg/m2 23904.81 g Audrey Moore [facility] [employer] [facility] 07/09/2024 11:00:27 Date Recorded Body height Body mass index (BMI) Body weight Heart rate Oxygen saturation Oxygen saturation in Arterial blood by Pulse oximetry Systolic blood pressure Diastolic blood pressure Provider Name and Address Organization Details Last Updated DateTime 5 154.94 cm 34.4 kg/m2 95002.8 1 g 100 /min 99 % 99 % 120 mm[Hg] 80 mm[Hg] Maria Fernanda Banuelos [facility] [employer] [facility] 5 15:36:11 Date Recorded Body height Body mass index (BMI) Body weight Pain severity - 0-10 verbal numeric rating [Score] - Reported Provider Name and Address Organization Details Last Updated DateTime 08/27/2024 154.94 cm 34.4 kg/m2 17263.81 g 3 GILA Christopher [facility] [employer] 08/27/2024 11:04:32 Date Recorded Body height Body mass index (BMI) Body weight Body temperature Heart rate Oxygen saturation Oxygen saturation in Arterial blood by Pulse oximetry Pain severity - 0-10 verbal numeric rating [Score] - Reported Systolic blood pressure Diastolic blood pressure Provider Name and Address Organization Details Last Updated DateTime 154.94 cm 33.6 kg/m2 97297.4 4 g 97.5 [degF] 100 /min 100 % 100 % 6 120 mm[Hg] 78 mm[Hg] Joana Dasilva MA [facility] [employer] 15:52:54 Social History Question Answer Notes LastModified by Organization Details LastModified Time Tobacco Smoking Status Current Every Day Smoker GILA Winters, [facility] [employer] 06/04/2024 15:25:18 Do You Have An Advance [...] Was Ill? No Information not available 06/04/2024 What Type Of Diet Are You Following? REGULAR Information not available 06/04/2024 What Is The Highest Grade Or Level Of School You Have Completed Or The Highest Degree You Have Received? [id number] She Is Getting Her GED At Present Time Information not available 06/04/2024 Have There Been Any Changes To Your Family Or Social Situation? No rubens Information not available 09/24/2024 What Is The Fluoride Status Of Your Home? Unknown Information not available 06/04/2024 Are There Any Guns Present In Your Home? No Information not available 06/04/2024 Do You Use Insect Repellent Routinely? No Information not available 09/24/2024 Where [facility] You Live? [facility] Information not available 06/04/2024 Do You Have A Medical Power Of Continuity Director? No Information not available 06/04/2024 What Was The Date Of Your Most Recent Tobacco Screening? 09/24/2024 Information not available 09/24/2024 How Many Children Do You Have? 1 Information not available 09/24/2024 Do You Have Any Pets? Yes Information [...] PPD Information not available 06/04/2024 Do You Use Sunscreen Routinely? No Information not available 09/24/2024 Have You Recently Traveled Abroad? No Information not available 06/04/2024 Do You Have Any Dietary Restrictions? No Information not available 09/24/2024 Sex: Female Functional Status Question Answer Note LastModified by Organizat ion Details LastModified Time Do you use any illicit or recreational drugs? No Information not available 06/04/2024 Do you or have you ever used any other forms of tobacco or nicotine? No Information not available 06/04/2024 What is your level of alcohol consumption? None Information not available 06/04/2024 Are you currently employed? 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 Moderate Information not available 06/04/2024 Mental Status Question Answer Note LastModified by Organization D etails LastModified Time Do you feel stressed (tense, restless, nervous, or anxious, or unable to sleep at night)? [id number] Information not available 06/04/2024 Family History Relationship Description Onset Age of [...] BOWEL PROBLEMS N FAILED BACK SYNDROME N [id number]|2024-10-09 19:24:00|2024-10-09 19:24:00|XMS_ITS|MAYKEL GEE|External Medical Summaries|[id number]|" Clinical Summary Created on: October 09, 2024 Fabian Bonilla : 1985 Sex: Female Author Organization [facility] Address [address] [place] [address] [place] [address] Care Team Providers Care Retail Sales Clerk Name Role Phone Zeyad Lazaro MD Primary Care Provider [phone] Source Comments [facility],non-owned Affiliates and Associated Physician Practices is amultiple site organization consisting of ambulatory clinics and hospital sitesin [place], [place], [place] and [place]. This disclosure is being madepursuant to the Care Everywhere program and may not contain all information available regarding this patient. Last updated 18.[facility] Epiphyte Allergies Active Allergy Reactions Criticality Noted Date [...] 3 times daily 2 Active HYDROcodone-ac etaminophen (Hunter) 5-325 MG tabletIndicati ons:Sinus pain Take 1 [...] patient's age to complete this topic Insurance [employer] [facility] Advance Directives * Full Code (Latest Code Status on File) Date Activated Date Inactivated Comments 11/23/2018 6:28 PM 11/24/2018 4:43 PM * Full Code Date Activated Date Inactivated Comments 11/23/2018 3:00 PM 11/23/2018 6:28 PM Care Teams Retail Sales Clerk Relationship Specialty Start Date End Date Zeyad Lazaro MD [address] [place] [id number] PCP - General Family Medicine 09/13/23 "
--- OUTSIDE RECORDS SUMMARY | 2024-10-09 19:24 | XMS_ITS | Clinical Summary ---
Author Organization [facility] Address [address] [place] [address] Care Team Providers Care Club Director Name Role Phone Unavailable Primary Care Provider [...]
--- OUTSIDE RECORDS SUMMARY | 2024-10-09 19:24 | XMS_ITS | Clinical Summary ---
Author Organization [facility] Address [address] [place] [id number] Care Team Providers Care Oncologist Name Role Phone Nathalia Melton MD Primary [...] CDT - 10/03/2024 10:24 PM CDT Emergency [facility] [place] [address] Roxane Cancino PA Dental Pain Discharge Disposition: Home or Self Care (Routine Discharge) 10/03/2024 Travel 08/07/2024 11:29 AM CDT - 08/07/2024 3:14 PM CDT Emergency [facility] [place] [address] Cornelia Escalante FNP Leg Pain Discharge Disposition: [...] PM Narrative 08/07/2024 2:12 PM CDT [address] [address] CTA CHEST WITH CONTRAST PULMONARY EMBOLISM PROTOCOL [...] Procedure Note Benedict Hooper MD - 08/07/2024 [facility] [address] [place], [place] [address] CTA CHEST WITH CONTRAST PULMONARY EMBOLISM PROTOCOL [...] 08/07/2024 2:11 PM us Cornelia Escalante SENIOR SUSTAINABILITY CONSULTANT CT Final Resul t * USV ROXANE DUPLEX LOW EXT LT (08/07/2024 2:04 PM CDT) Anatomical Region Laterality Modality Vascular Ultraso und 08/07/2024 1:48 PM CDT Narrative 08/07/2024 5:13 PM CDT VENOUS DUPLEX IMAGING LEFT LOWER EXTREMITY VASCULAR LAB Pat.Name: FABIAN BONILLA Pat.ID: [id number] St.Date: 08/07/2024 Refer.MD: Zeyad Swift Exam Time: [...] EXTREMITY VASCULAR LAB Pat.Name: FABIAN BONILLA Pat.ID: [id number] St.Date: 08/07/2024 Refer.MD: Zeyad Swift Exam Time: [...] Signature> 08/07/2024 05:13 PM Debora Rosen M.D. Cornelia Escalante SENIOR SUSTAINABILITY CONSULTANT US VASC Final Resul t * POCT urine (08/07/2024 12:17 PM CDT) Pathologist [facility] URINE HCG TEST NEGATIVE Internal Control: VALID [...] PM Narrative 08/07/2024 12:[address] [address] IMAGING STUDIES: XR CHEST PORTABLE DATE: 08/07/2024 11:35 AM HISTORY: sob 38-year-old female. Shortness of breath and dizziness. Bruising and pain of the left thigh. No history of DVT. Reported recent [facility] emergency department visit with laboratory evaluation and [...] Note Beka Puga MD - 08/07/[address] [address] IMAGING STUDIES: XR CHEST PORTABLEDATE: 08/07/2024 11:35 AM HISTORY: sob 38-year-old female. Shortness of breath and dizziness.Bruising and pain of the left thigh. No history of DVT. [facility] evaluationand EKG [...] CDT) 08/07/2024 11:4 5 AM CDT Narrative 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1985 Requested By: ALEX VERMA Order Number: [id number] Reading : Marcos Petit Measurements Intervals [place] Rate: 94 P: 54 WI: 153 QRS: 42 QRSD: 67 T: 38 QT: 317 QTc: 398 Interpretive Statements SINUS RHYTHM WITH SINUS ARRHYTHMIA NONSPECIFIC T-WAVE ABNORMALITY No previous ECG available for comparison No ischemic changes Preliminary EKG Interpretation by DAPHNEY Lowery Procedure Note Marcos Petit MD - 08/07/[address] Test Date: 2024-08-07 Pat Name: FABIAN BONILLA Department: 41 Room: [facility] 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1985 Requested By: ALEX VERMA Order Number: [id number] Reading MD: Marcos Petit Measurements Intervals [place] Rate: 94 P: 54 WI: 153 QRS: 42 QRSD: 67 T: 38 QT: 317 QTc: 398 Interpretive Statements SINUS RHYTHM WITH SINUS ARRHYTHMIA NONSPECIFIC T-WAVE ABNORMALITY No previous ECG available for comparison No ischemic changes Preliminary EKG Interpretation by DAPHNEY Lowery us Alex Verma PA-C ECG ORDERABLES Final Resul t Performing Organization Address City/State/[facility] Co de Phone Number [facility] RAD * URINALYSIS (08/07/2024 11:41 AM CDT) SPECIMEN TYPE URINE CLEAN CATCH 08/07/2024 11:57 AM CDT [facility] COLOR (U) LIGHT YELLOW 08/07/2024 12:05 PM CDT [facility] TRANSPARENCY CLEAR 08/07/2024 12:05 PM CDT [facility] SPECIFIC GRAVITY (U) 1.013 1.001 - 1.030 08/07/2024 12:05 PM CDT [facility] U PH 5.5 5.0 - 9.0 08/07/2024 12:05 PM CDT [facility] LEUKOCYTES (U) NEGATIVE NEGATIVE 08/07/2024 12:05 PM CDT [facility] NITRITES NEGATIVE NEGATIVE 08/07/2024 12:05 PM CDT [facility] PROTEIN RANDOM (U) NEGATIVE <30 MG/DL 08/07/2024 12:05 PM CDT [facility] GLUCOSE (U) NORMAL NORMAL MG/DL 08/07/2024 12:05 PM CDT [facility] KETONES MG/DL (U) NEGATIVE NEGATIVE MG/DL 08/07/2024 12:05 PM CDT [facility] UROBILINOGEN NORMAL NORMAL MG/DL 08/07/2024 12:05 PM CDT [facility] BILIRUBIN (U) NEGATIVE NEGATIVE MG/DL 08/07/2024 12:05 PM CDT [facility] BLOOD (U) NEGATIVE NEGATIVE 08/07/2024 12:05 PM CDT [facility] URINE SPECIMEN OBTAINED BY CLEAN CATCH PROCEDURE / Unknown 08/07/2024 11:41 AM CDT us Alex Verma PA-C URINE ORDERABLES Final Resu lt [facility] [address] [place] [address], [place] [phone] * (ABNORMAL) COMPREHENSIVE METABOLIC PANEL (08/07/2024 11:41 AM CDT) GLUCOSE 84 70 - 99 MG/DL 08/07/2024 12:24 PM CDT [facility] BUN 7 7 - 18 MG/DL 08/07/2024 12:24 PM CDT [facility] CREATININE S/P/B 0.86 0.55 - 1.02 MG/DL 08/07/2024 12:24 PM CDT [facility] SODIUM S/P/B 136 136 - 145 MMOL/L 08/07/2024 12:24 PM CDT [facility] POTASSIUM S/P/B 3.8 3.5 - 5.1 MMOL/L 08/07/2024 12:24 PM CDT [facility] CHLORIDE S/P/B 109 97 - 115 MMOL/L 08/07/2024 12:24 PM CDT [facility] CO2 23.4 21 - 32 MMOL/L 08/07/2024 12:24 PM CDT [facility] CALCIUM S/P/B 9.2 8.5 - 10.1 MG/DL 08/07/2024 12:24 PM CDT [facility] BILIRUBIN TOTAL S/P/B 0.2 0.2 - 1.2 MG/DL 08/07/2024 12:24 PM CDT [facility] Comment: THIS ASSAY IS NOT RECOMMENDED FOR PATIENTS UNDERGOING TREATMENT WITH ELTROMBOPAG DUE TO THE POTENTIAL FOR FALSELY ELEVATED RESULTS. TOTAL PROTEIN S/P/B 8.4(H) 6.4 - 8.2 G/DL 08/07/2024 12:24 PM CDT [facility] ALBUMIN S/P/B 3.7 3.4 - 5.0 G/DL 08/07/2024 12:24 PM CDT [facility] AST 10(L) 15 - 37 U/L 08/07/2024 12:24 PM CDT [facility] ALT 14 14 - 55 U/L 08/07/2024 12:24 PM CDT [facility] ALKALINE PHOSPHATASE S/P/B 93 50 - 136 U/L 08/07/2024 12:24 PM CDT [facility] ANION GAP 3.6 2 - 10 MMOL/L 08/07/2024 12:24 PM CDT [facility] BUN CREATININE RATIO 8.1 6 - 26 08/07/2024 12:24 PM CDT [facility] A/G RATIO 0.8(L) 1.0 - 2.0 RATIO 08/07/2024 12:24 PM CDT [facility] GFR ESTIMATE 90(L) >90 ML/MIN/1.7 3 M2 08/07/2024 12:24 PM CDT [facility] Comment: NOTE: eGFR is not calculated [...] Alex Verma PA-C LABORATORY Final Resul t [facility] [address] [place] [address], [place] [phone] * (ABNORMAL) D-DIMER, QUANTITATIVE (08/07/2024 11:41 AM CDT) Pathologist [facility] D-DIMER 1,025(HH) 0 - 500 ng{FEU}/mL 08/07/2024 12:16 PM CDT [facility] Comment: D-Dimer values less than or [...] called 08/07/2024 12:16 PM to EMERGENCY ROOM ([id number]/NITA HALEY) by [id number]. 08/07/2024 11:4 1 AM CDT us Alex Verma PA-C LABORATORY Final Resul t [facility] [address] [place] [address], [place] [phone] * (ABNORMAL) CBC W/DIFF AUTOMATED (08/07/2024 11:41 AM CDT) WBC 8.22 4.5 - 11.0 x10'3/uL 08/07/2024 12:00 PM CDT [facility] RBC 4.24 4.20 - 5.40 x10'6/uL 08/07/2024 12:00 PM CDT [facility] HGB 11.5(L) 12.0 - 16.0 G/DL 08/07/2024 12:00 PM CDT [facility] HCT 36.3(L) 38.0 - 48.0 % 08/07/2024 12:00 PM CDT [facility] MCV 85.6 81.0 - 99.0 FL 08/07/2024 12:00 PM CDT [facility] MCH 27.1 27.0 - 31.0 PG 08/07/2024 12:00 PM CDT [facility] MCHC 31.7(L) 32.0 - 36.0 G/DL 08/07/2024 12:00 PM CDT [facility] RDW 17.5(H) 11.5 - 14.5 % 08/07/2024 12:00 PM CDT [facility] PLT 451(H) 130 - 400 x10'3/uL 08/07/2024 12:00 PM CDT [facility] MPV 9.3 9.3 - 12.2 FL 08/07/2024 12:00 PM CDT [facility] DIFFERENTIAL TYPE AUTOMATED DIFFERENTIAL 08/07/2024 12:00 PM CDT [facility] NEUTROPHILS % 49.7 % 08/07/2024 12:00 PM CDT [facility] LYMPHOCYTES % 39.8 % 08/07/2024 12:00 PM CDT [facility] MONOCYTES % 7.2 % 08/07/2024 12:00 PM CDT [facility] EOSINOPHILS 2.8 % 08/07/2024 12:00 PM CDT [facility] BASOPHILS 0.1 % 08/07/2024 12:00 PM CDT [facility] IMMATURE GRANS % 0.4 % 08/08/19 12:00 PM CDT [facility] ABS. NEUTROPHILS 4.09 1.80 - 7.70 x10'3/uL 08/07/2024 12:00 PM CDT [facility] ABS. LYMPHOCYTES 3.27 1.00 - 4.80 x10'3/uL 08/07/2024 12:00 PM CDT [facility] ABS. MONOCYTES 0.59 0.24 - 0.86 x10'3/uL 08/07/2024 12:00 PM CDT [facility] ABS. EOSINOPHILS 0.23 0.04 - 0.36 x10'3/uL 08/07/2024 12:00 PM CDT [facility] ABS. BASOPHILS 0.01 0.01 - 0.08 x10'3/uL 08/07/2024 12:00 PM CDT [facility] ABS. IMMATURE GRANULOCYTES 0.03 0.00 - 0.49 x10'3/uL 08/07/2024 12:00 PM CDT [facility] 08/07/2024 11:4 1 AM CDT Alex Verma PA-C LABORATORY Final Resul t Performing Organization Address [facility] Co de Phone Number [facility] [address] [place] [address], [place] [phone] * TROPONIN, QUANT (08/07/2024 11:41 AM CDT) TROPONIN I HIGH SENSITIVITY <3 <54 ng/L 08/07/2024 12:24 PM CDT [facility] Comment: HIGH DOSES OF BIOTIN, TROPONIN-SPECIFIC AUTOANTIBODIES, AND ANTIBODY THERAPY CONTAINING HAMA MAY INTERFERE WITH THIS TEST RESULT. CORRELATION TO CLINICAL HISTORY AND PRESENTATION RECOMMENDED. 08/07/2024 11:4 1 AM CDT us Alex Verma PA-C LABORATORY Final Resul t Performing Organization Address [facility] Co de Phone Number [facility] [address] [place] [address], [place] [phone] * CK (CPK) (08/07/2024 11:41 AM CDT) CPK 107 21 - 215 U/L 08/07/2024 12:24 PM CDT [facility] 08/07/2024 11:4 1 AM CDT us Alex Verma PA-C LABORATORY Final Resul t Performing Organization Address City/[facility] Co de Phone Number [facility] [address] [place] [address], from Last 3 Months Insurance BLACK Care Teams Oncologist Relationship Specialty Start Date End Date Nathalia Melton MD [address] [id number] PCP - General INTERNAL MEDICINE 10/03/24
[2024-10-09] MEDS: LEVALBUTEROL NEB 1.25 MG/3 ML INHALATION (19:26)
[2024-10-09] MEDS: IPRATROPIUM BR 0.02% INH SOLN 0.5 MG/2.5 ML VIAL INHALATION (19:27)
--- NOTE | 2024-10-09 20:23 | ED.GENADULT ---
HPI - General Adult General Chief complaint: Shortness of Breath/Dyspnea Stated complaint: Diff breathing after receiving Surgical block/neck Time Seen by Provider: 10/09/24 18:38 History of Present Illness HPI narrative: Patient is a 39-year-old female who presents ER with shortness of breath. Patient had a regional nerve block for for a shoulder surgery today [facility]. After having a block she reported that she began feeling short of breath. She was then put to sleep and have her surgery. She went home and has been using incentive spirometry 10 times every hour. She continues to have difficulty getting a full breath is breathing at a rapid rate. Patient does have some separate pain in her shoulder from the surgery but she reports this is not causing her shortness of breath. No pain with deep breath. No hemoptysis. No productive cough. If she takes a deep breath she will start to cough. She reports some numbness tilt her arm but she has improving sensation her fingers. She is in a brace. Related Data Home Medications Medication Instructions Recorded Confirmed Last Taken Type duloxetine 60 mg capsule,delayed mg PO 09/29/24 Unknown History release hydroxyzine pamoate 25 mg capsule mg 09/29/24 Unknown History Allergies Allergy/AdvReac Type Severity Reaction Status Date / Time metoclopramide AdvReac Intermediate HALLUCINATI Verified 10/09/24 17:10 ONS tramadol AdvReac Mild Confusion Verified 10/09/24 17:10 PMFSH Past Medical History Medical History (Updated 10/09/24 @ 22:16 by Oskar Aldrich MD) GERD (gastroesophageal reflux disease) History of ovarian cyst Anxiety Depression Surgical History Surgical History (Updated 10/09/24 @ 22:16 by Oskar Aldrich MD) H/O shoulder surgery Hx of section Family History Family History Mother Hypertension Grandparent Hypertension Diabetes mellitus Other Asthma Social History Social History Smoking packs per day: 0.5 Smoking cigarettes per day: 10.0 Smoking status: Current every day smoker Substance use: never Gender identity (if verbalized by the patient): Female Exam Narrative: GENERAL: Anxious-appearing, well-nourished, and in mild distress. HEAD: Normocephalic, atraumatic. ENT: Nares clear, no rhinorrhea or epistaxis. Mucous membranes moist. NECK: Supple. CHEST: Increased respiratory rate with shallow breathing. Diminished at right base. Clear lung sounds left lung and right apex.. HEART: Tachycardic and regular. Normal peripheral pulses. ABDOMEN: Soft, nontender, nondistended. EXTREMITIES: Normal range of motion. No edema. Right shoulder immobilized. SKIN: Warm, dry, no rash. NEURO: Alert and oriented x3. Course Course Emergency Course: Patient persistently breathing 30 40 times a minute after nebulizer treatment. Has coughing with deep breath. Suspect partial involvement of phrenic nerve with the nerve block. Would like to observe due to persistent kidney a until her breathing improves. Hospitalist here declines and would like patient [facility] [place] where her procedure was done. I have discussed case with Jordyn Akbar NP, she accepts the patient on behalf of Dr. Rodriguez. I have also spoken with Dr. Abreu the orthopedist who performed the surgery. Vital Signs Vital signs: Vital Signs Temperature 98.4 F 10/09/24 17:31 Pulse Rate 103 H 10/09/24 17:31 Respiratory Rate 14 10/09/24 17:31 Blood Pressure 103/90 10/09/24 17:31 Pulse Oximetry 95 10/09/24 17:31 Oxygen Delivery Room Air 10/09/24 17:31 Temperature 98.4 F 10/09/24 17:31 Pulse Rate 104 H 10/09/24 21:01 Respiratory Rate 39 H 10/09/24 21:01 Blood Pressure 131/103 H 10/09/24 21:01 Pulse Oximetry 96 10/09/24 21:26 Oxygen Delivery Room Air 10/09/24 19:30 Medical Decision Making Vital Signs Vital Signs: Vital Signs Temperature 98.4 F 10/09/24 17:31 Pulse Rate 103 H 10/09/24 17:31 Respiratory Rate 14 10/09/24 17:31 Blood Pressure 103/90 10/09/24 17:31 Pulse Oximetry 95 10/09/24 17:31 Oxygen Delivery Room Air 10/09/24 17:31 Temperature 98.4 F 10/09/24 17:31 Pulse Rate 104 H 10/09/24 21:01 Respiratory Rate 39 H 10/09/24 21:01 Blood Pressure 131/103 H 10/09/24 21:01 Pulse Oximetry 96 10/09/24 21:26 Oxygen Delivery Room Air 10/09/24 19:30 Lab Data 10/09/24 21:29 10/09/24 21:29 Labs: Lab Results 10/09/24 Range/Units 21:29 WBC 12.3 H (4.5-10.0) K/mm3 RBC 4.14 L (4.2-5.4) M/mm3 Hgb 10.9 L (12.0-15.0) g/dL Hct 35.3 L (37.0-47.0) % MCV 85.3 (80-100) fl MCH 26.3 (26-34) pg MCHC 30.9 L (32-36) g/dl RDW 16.1 H (11.5-14.5) % Plt Count 435 H (150-375) k/mm3 MPV 8.9 (7.4-10.4) fl Immature Gran % (Auto) 0.9 H (0-0.5) % Neut % (Auto) 86.1 H (45.5-73.1) % Lymph % (Auto) 10.1 L (18.3-44.2) % [place] % (Auto) 2.8 (2.6-8.5) % Eos % (Auto) 0.0 (0-4.4) % Baso % (Auto) 0.1 L (0.2-1.2) % Lymph # (Auto) 1.24 (0.9-3.2) K/mm3 [place] # (Auto) 0.3 (0.1-0.6) K/mm3 Eos # (Auto) 0.0 (0-0.3) K/mm3 Baso # (Auto) 0.0 (0.0-0.1) K/mm3 Abs Immat Gran (auto) 0.11 H (0.00-0.031) K/mm3 Absolute Neuts (auto) 10.6 H (1.3-6.7) K/mm3 Absolute Nucleated RBC 0.000 (0.0-0.012) K/mm3 Nucleated RBC % 0.0 (0.0-0.2) % Sodium 140 (137-145) mmol/L Potassium 4.1 (3.4-5.0) mmol/L Chloride 108 H (98-107) mmol/L Carbon Dioxide 21 L (22-30) mmol/L Anion Gap 11 (4-12) mmol/L BUN 12 (7-17) mg/dL Creatinine 0.85 (0.7-1.0) mg/dL Estim Creat Clear Calc 77 ml/min Estimated GFR > 60 (59 - ) Glucose 118 H (65-110) mg/dL Calcium 9.4 (8.4-10.2) mg/dL Total Bilirubin 0.3 (0.2-1.3) mg/dL AST 34 (14-36) U/L ALT 34 (6-35) U/L Alkaline Phosphatase 79 (38-126) U/L Total Protein 8.0 (6.3-8.2) g/dL Albumin 4.4 (3.5-5.1) g/dL Imaging Data Radiologist's impression: ITS Impressions Chest X-Ray 10/09/24 18:51 IMPRESSION: Prominent markings in the left lower lobe area which may indicate atelectasis versus pneumonia. Follow-up and clinical correlation advised. Chest X-Ray 10/09/24 19:33 IMPRESSION: Right basilar atelectasis versus pneumonia. Prominent markings in the left lung base which may indicate atelectasis versus early pneumonia. 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
--- NOTE | 2024-10-09 21:08 | PC.NURSE ---
patient stating she wants to go home. EDP Valdemar aware and at bedside to talk with patient and family.
[2024-10-09] MEDS: MORPHINE SULFATE (*CRX) 4 MG/ML INJ IV PUSH (21:24)
[2024-10-09 21:37] LABS: Basophils Percent Auto 0.1 % (0.2-1.2); Hematocrit 35.3 % (37.0-47.0); Hemoglobin 10.9 g/dL (12.0-15.0); Immature Granulocyte Absolute 0.11 K/mm3 (0.00-0.031); Immature Granulocyte Percent A 0.9 % (0-0.5); Lymphocytes Absolute Auto 1.24 K/mm3 (0.9-3.2); Lymphocytes Percent Auto 10.1 % (18.3-44.2); Mean Corpuscular HGB Conc 30.9 g/dl (32-36); Mean Corpuscular Hemoglobin 26.3 pg (26-34); Mean Corpuscular Volume 85.3 fl (80-100); Mean Platelet Volume 8.9 fl (7.4-10.4); Monocytes Absolute Auto 0.3 K/mm3 (0.1-0.6); Monocytes Percent Auto 2.8 % (2.6-8.5); Neutrophils Absolute Auto 10.6 K/mm3 (1.3-6.7); Neutrophils Percent Auto 86.1 % (45.5-73.1); Platelet Count Result 435 k/mm3 (150-375); Red Blood Count 4.14 M/mm3 (4.2-5.4); Red Cell Distribution Width 16.1 % (11.5-14.5); White Blood Count 12.3 K/mm3 (4.5-10.0)
[2024-10-09 21:45] LABS: Alanine Aminotransferase 34 U/L (6-35); Albumin Level 4.4 g/dL (3.5-5.1); Alkaline Phosphatase 79 U/L (38-126); Anion Gap 11 mmol/L (4-12); Aspartate Amino Transferase 34 U/L (14-36); Bilirubin,Total 0.3 mg/dL (0.2-1.3); Blood Urea Nitrogen 12 mg/dL (7-17); Calcium 9.4 mg/dL (8.4-10.2); Carbon Dioxide 21 mmol/L (22-30); Chloride 108 mmol/L (98-107); Estimated CRCL calculation 77 ml/min; Estimated Glomerular Filt Rate > 60; Glucose 118 mg/dL (65-110); Potassium 4.1 mmol/L (3.4-5.0); Sodium 140 mmol/L (137-145)
[2024-10-10 00:01] VITALS: BP 131/88
--- NOTE | 2024-10-10 00:33 | PC.NURSE ---
attempted to contact [facility]. sent to voicemail. No response yet. Pt verbalized that she would like to sign out ama and go home. Pt plans to go to [facility] in the morning. PEDRO joe notified. AMA form signed.
== END 2024-10-10 00:35 | disposition left against medical advice (07) ==
PROVIDERS: Emergency Provider Emergency Medicine
DX: G58.8 Other specified mononeuropathies (principal); K21.9 Gastro-esophageal reflux disease without esophagitis; F41.8 Other specified anxiety disorders
CPT/HCPCS: 36415; 71045; 80053; 85025; 93005; 94640; 96374; 99284; J2270

== ENCOUNTER 2024-12-02 01:33 | Emergency (ER) | payer OTHER, SELFPAY ==
--- OUTSIDE RECORDS SUMMARY | 2024-12-02 01:35 | XMS_ITS | Clinical Summary ---
Author Organization [facility] Address [address] [place] [id number] Care Team Providers Care Chandelier Maker Name Role Phone Nathalia Melton MD Primary Care Provider Allergies Active Allergy Reactions Criticality Noted Date Comments Metoclopramide Hallucinations 09/22/2023 Rosuvastatin Other (see comment) 11/09/2024 rosuvastatin Tramadol Hallucinations 09/22/2023 Medications cetirizine (ZYRTEC) 10 [...] hours as needed. 30 tablet 08/07/2024 Active HYDROcodone-johnnie taminophen (NORCO) 5-325 MG tabletIndicatio ns:Acute Pain < 7 Day Supply Take 1 tablet by mouth every 6 (six) hours as needed. Indications : Acute Pain < 7 Day Supply 10 tablet 11/09/2024 Active naproxen (NAPROSYN) 500 MG tablet Take 1 tablet (500 mg total) by mouth 2 (two) times daily as needed (pain). 20 tablet 11/24/2024 Active penicillin VK 500 MG tablet Take 1 tablet (500 mg total) by mouth 4 (four) times daily for 7 days. 28 tablet 11/09/2024 Encounters Date Type Department Care Team Description 11/24/2024 3:47 AM CDT - 11/24/2024 6:20 AM CDT Emergency [facility] [place] [address] Soy Villeda MD,PHD Arm Injury Discharge Disposition: Home or Self Care (Routine Discharge) 11/24/2024 Travel 11/09/2024 4:06 PM CDT - 11/09/2024 4:23 PM CDT Emergency [facility] [place] [address] Omkar Alvarenga PA-C Dental Pain (Left upper) Discharge Disposition: Home or Self Care (Routine Discharge) 11/09/2024 Travel 10/03/2024 10:12 PM CDT - 10/03/2024 10:24 PM CDT Emergency [facility] [place] [address] Roxane Cancino PA Dental Pain Discharge Disposition: Home or Self Care (Routine Discharge) 10/03/2024 Travel from Last 3 Months Social History [...] Sign Reading Time Taken Comments Blood Pressure 130/97 11/24/2024 6:05 AM CDT Pulse 101 11/24/2024 3:40 AM CDT Temperature 36.9 C (98.5 F) 11/24/2024 3:40 AM CDT Respiratory Rate 20 11/24/2024 3:40 AM CDT Oxygen Saturation 100% 11/24/2024 6:05 AM CDT Inhaled Oxygen Concentration - - Weight 82.6 kg (182 lb) 11/24/2024 3:40 AM CDT Height 152.4 cm (5') 11/24/2024 3:40 AM CDT Body Mass Index 35.54 11/24/2024 3:40 AM CDT Plan of Treatment Health Maintenance [...] Procedure Name Priority Date/Time Associated Diagnosis Comments CT SHOULDER RT WO CON STAT 11/24/2024 5:35 AM CDT XR HUMERUS RT MIN 2V STAT 11/24/2024 4:26 AM CDT XR SHOULDER RT 3V STAT 11/24/2024 4:2 6 AM CDT from Last 3 Months Results * CT SHOULDER RT WO CON (11/24/2024 5:35 AM CDT) Anatomical Region Laterality Modality Shoulder Computed Tomogra phy 11/24/2024 5:43 AM CDT Impressions 11/24/2024 5:48 AM CDT IMPRESSION: 1. No acute osseous abnormalities in the right shoulder. Appearance consistent with prior tendon repair. Calcification projecting over the glenohumeral joint on prior radiograph is likely the coracoid process of scapula. Referred By: Interpreted By: Felipe Renteria MD, 11/24/2024 5:43 AM Narrative 11/24/2024 5:48 AM CDT [address] [address] EXAMINATION: CT right shoulder without contrast EXAM DATE/TIME: 11/24/2024 5:11 AM REASON FOR EXAM: right shoulder injury Surgery October 09 for rotator cuff repair and biceps tendon repair. Out of sling for 3 weeks. Injury to the right arm with popping sensation. COMPARISON: Right shoulder and humerus radiographs 11/24/2024. No additional prior imaging. TECHNIQUE: Axial CT images of the right shoulder are obtained without the use of IV contrast agent. Subsequent coronal and sagittal reformatted sequences are created for evaluation. A dose lowering technique was used for this procedure, which may include, but is not limited to, dose reduction technique, automated exposure control, iterative reconstruction, ALARA (As Low As Reasonably Achievable), or Image Gently techniques. FINDINGS: There is a tubular shaped lucency in the humeral head consistent with provided history of tendon repair. The glenohumeral relationship is preserved. There is no fracture in the scapula, visualized portion of clavicle, or visualized portion of proximal right humerus. Visualized right ribs intact. Visualized right upper lung is clear. No joint effusion at the shoulder. No pooling fluid in the surrounding musculature. No right axillary lymphadenopathy. Procedure Note Felipe Renteria MD - 11/24/2024 [facility] [address] [place], [place] [address] EXAMINATION: CT right shoulder without contrast EXAM DATE/TIME: 11/24/2024 5:11 AM REASON FOR EXAM: right shoulder injury Surgery October 09 for rotator cuff repair and biceps tendon repair. Out ofsling for 3 weeks. Injury to the right arm with popping sensation. COMPARISON: Right shoulder and humerus radiographs 11/24/2024. Noadditional prior imaging. TECHNIQUE: Axial CT images of the right shoulder are obtained without theuse of IV contrast agent. Subsequent coronal and sagittal reformattedsequences are created for evaluation. A dose lowering technique was usedfor this procedure, which may include, but is not limited to, dosereduction technique, automated exposure control, iterative reconstruction,ALARA (As Low As Reasonably Achievable), or Image Gently techniques. FINDINGS: There is a tubular shaped lucency in the humeral head consistentwith provided history of tendon repair. The glenohumeral relationship ispreserved. There is no fracture in the scapula, visualized portion ofclavicle, or visualized portion of proximal right humerus. Visualizedright ribs intact. Visualized right upper lung is clear. No jointeffusion at the shoulder. No pooling fluid in the surrounding musculature. No right axillarylymphadenopathy. IMPRESSION: 1. No acute osseous abnormalities in the right shoulder. Appearanceconsistent with prior tendon repair. Calcification projecting over theglenohumeral joint on prior radiograph is likely the coracoid process ofscapula. Referred By: Interpreted By: Felipe Renteria MD, 11/24/2024 5:43 AM us Soy Villeda MD,PHD CT Final Resu lt * XR SHOULDER RT 3V (11/24/2024 4:26 AM CDT) Anatomical Region Laterality Modality Shoulder Radiographic Margret ging 11/24/2024 4:42 AM CDT Impressions 11/24/2024 4:48 AM CDT IMPRESSION: 1. On the external rotation view, there is a bony density projected over the inferior right glenohumeral joint of uncertain etiology. A fracture fragment is not excluded. Suggest CT scan of the right shoulder for further evaluation. 2. No other acute fracture or dislocation is identified in the right shoulder or right humerus. No significant arthritic changes. Referred By: Interpreted By: Mahnaz May MD, 11/24/2024 4:42 AM Narrative 11/24/2024 4:48 AM CDT [address] [address] EXAMINATION: XR HUMERUS RT 2V, XR SHOULDER RT 3V INDICATION: Arm injury, surgery for right rotator cuff and right biceps tendon repair 10/09/2024. Recurrent injury while throwing trash, heart or polyp in the right arm COMPARISON: None. RIGHT SHOULDER FINDINGS: On the AP external view of the right shoulder, there is a bony density projected over the inferior glenohumeral joint space that may represent a displaced fracture fragment, with artifact not excluded given that it is not seen on the other images. No other evidence of acute fracture or dislocation allowing for suboptimal positioning and technique on the Y view. Mild soft tissue swelling over the right shoulder. No radiopaque foreign body. No significant arthritic changes are seen in the right shoulder. RIGHT HUMERUS FINDINGS: Right humerus appears intact with no obvious fracture or dislocation identified on this exam. Mild soft tissue swelling over the right shoulder. No radiopaque foreign body. No significant arthritic changes in the right shoulder or right elbow. Procedure Note Mahnaz May MD - 11/24/[address] [address] EXAMINATION: XR HUMERUS RT 2V, XR SHOULDER RT 3V INDICATION: Arm injury, surgery for right rotator cuff and right bicepstendon repair 10/09/2024. Recurrent injury while throwing trash, heart orpolyp in the right arm COMPARISON: None. RIGHT SHOULDER FINDINGS: On the AP external view of the right shoulder,there is a bony density projected over the inferior glenohumeral jointspace that may represent a displaced fracture fragment, with artifact notexcluded given that it is not seen on the other images. No other evidenceof acute fracture or dislocation allowing for suboptimal positioning andtechnique on the Y view. Mild soft tissue swelling over the rightshoulder. No radiopaque foreign body. No significant arthritic changesare seen in the right shoulder. RIGHT HUMERUS FINDINGS: Right humerus appears intact with no obviousfracture or dislocation identified on this exam. Mild soft tissueswelling over the right shoulder. No radiopaque foreign body. Nosignificant arthritic changes in the right shoulder or right elbow. IMPRESSION: 1. On the external rotation view, there is a bony density projected overthe inferior right glenohumeral joint of uncertain etiology. A fracturefragment is not excluded. Suggest CT scan of the right shoulder forfurther evaluation. 2. No other acute fracture or dislocation is identified in the rightshoulder or right humerus. No significant arthritic changes. Referred By: Interpreted By: Mahnaz May MD, 11/24/2024 4:42 AM Soy Villeda MD,PHD GENERAL IMAGING Final Resu lt * XR HUMERUS RT MIN 2V (11/24/2024 4:26 AM CDT) Anatomical Region Laterality Modality Humerus Radiographic Margret ging 11/24/2024 4:42 AM CDT Impressions 11/24/2024 4:48 AM CDT IMPRESSION: 1. On the external rotation view, there is a bony density projected over the inferior right glenohumeral joint of uncertain etiology. A fracture fragment is not excluded. Suggest CT scan of the right shoulder for further evaluation. 2. No other acute fracture or dislocation is identified in the right shoulder or right humerus. No significant arthritic changes. Referred By: Interpreted By: Mahnaz May MD, 11/24/2024 4:42 AM Narrative 11/24/2024 4:48 AM CDT [address] [address] EXAMINATION: XR HUMERUS RT 2V, XR SHOULDER RT 3V INDICATION: Arm injury, surgery for right rotator cuff and right biceps tendon repair 10/09/2024. Recurrent injury while throwing trash, heart or polyp in the right arm COMPARISON: None. RIGHT SHOULDER FINDINGS: On the AP external view of the right shoulder, there is a bony density projected over the inferior glenohumeral joint space that may represent a displaced fracture fragment, with artifact not excluded given that it is not seen on the other images. No other evidence of acute fracture or dislocation allowing for suboptimal positioning and technique on the Y view. Mild soft tissue swelling over the right shoulder. No radiopaque foreign body. No significant arthritic changes are seen in the right shoulder. RIGHT HUMERUS FINDINGS: Right humerus appears intact with no obvious fracture or dislocation identified on this exam. Mild soft tissue swelling over the right shoulder. No radiopaque foreign body. No significant arthritic changes in the right shoulder or right elbow. Procedure Note Mahnaz May MD - 11/24/[address] [address] EXAMINATION: XR HUMERUS RT 2V, XR SHOULDER RT 3V INDICATION: Arm injury, surgery for right rotator cuff and right bicepstendon repair 10/09/2024. Recurrent injury while throwing trash, heart orpolyp in the right arm COMPARISON: None. RIGHT SHOULDER FINDINGS: On the AP external view of the right shoulder,there is a bony density projected over the inferior glenohumeral jointspace that may represent a displaced fracture fragment, with artifact notexcluded given that it is not seen on the other images. No other evidenceof acute fracture or dislocation allowing for suboptimal positioning andtechnique on the Y view. Mild soft tissue swelling over the rightshoulder. No radiopaque foreign body. No significant arthritic changesare seen in the right shoulder. RIGHT HUMERUS FINDINGS: Right humerus appears intact with no obviousfracture or dislocation identified on this exam. Mild soft tissueswelling over the right shoulder. No radiopaque foreign body. Nosignificant arthritic changes in the right shoulder or right elbow. IMPRESSION: 1. On the external rotation view, there is a bony density projected overthe inferior right glenohumeral joint of uncertain etiology. A fracturefragment is not excluded. Suggest CT scan of the right shoulder forfurther evaluation. 2. No other acute fracture or dislocation is identified in the rightshoulder or right humerus. No significant arthritic changes. Referred By: Interpreted By: Mahnaz May MD, 11/24/2024 4:42 AM Soy Villeda MD,PHD GENERAL IMAGING Final Resu lt from Last 3 Months Insurance Care Teams Chandelier Maker Relationship Specialty Start Date End Date Nathalia Melton MD PCP - General INTERNAL MEDICINE 10/03/24
--- OUTSIDE RECORDS SUMMARY | 2024-12-02 01:35 | XMS_ITS | Data Portability ---
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 She states she is not doing very well, is in a lot of pain. she is out of pain medications in his using ibuprofen which is not helping. She also states she has a burning nerve pain in the shoulder. She presented to the emergency room at [facility] the night of surgery because she was short of breath. It was believed that the nerve block affected the phrenic nerve. She was told to present to [facility] for overnight observation but she did not. This later resolved on its own. She presents today in the sling with the pillow incorrectly placed. Physical exam: Incisions are clean dry and intact without signs and symptoms of infection. Sutures removed and Steri-Strips were placed. Edema throughout and pain with light touch around the shoulder. Sensation intact. We discussed incisional care and when to call the office if there are changes. We will renew her pain medication and she can continue with ibuprofen as well. I demonstrated the correct placement of the sling and pillow. I also demonstrated passive elbow and pendulum movements to work on. We will order physical therapy for her to start passive range of motion. We will see her back in 4 weeks for recheck. She is in agreement with this plan. [email or web address] Not available 10/21/2024 10:39:19 11/10/2024 11/10/2024 07/02/2024: TSH 0.778L VIT D 15.8 Chol 220, LDL 153 Not available 11/10/2024 15:45:12 11/19/2024 11/19/2024 39-year-old female presents for follow-up of her right shoulder. She has a history of arthroscopy, debridement, biceps tenodesis, subacromial decompression 10/09/2024. She still is having pain. She says she has fallen 3 times since surgery. She also had a dental procedure on 11/09 where she had an infected tooth pulled. She has been on antibiotics since then. She is currently taking ibuprofen 800. She also reports having a pimple at the anterior incision site. She is out of the sling. She was very guarded on exam. She has a small pustule which looks something like a suture abscess on her anterior incision. There is no expressible drainage. She was very hesitant to move her arm. She has active elevation to 110, passive to 130. She had poor effort with rotator cuff testing. We will continue with the postoperative rehab. We will have her continue physical therapy. We also gave her an order for meloxicam instead of the ibuprofen 800 she has been taking. We discussed that if she has active dental infection that does put her at higher risk of seeding the wound but she is currently on antibiotics. We will see her back in 6 weeks, or sooner as needed. Not available 11/19/2024 15:35:26 11/26/2024 11/26/2024 39-year-old female presents for follow-up status post right shoulder arthroscopy, debridement, biceps tenodesis, subacromial decompression on 10/09/2024. She reports still having significant pain and has been babying and guarding the arm. She reports that yesterday she was throwing out the trash into a dumpster when the box fell out and struck her right arm and jerked it. Since then she had increasing pain and actually went to the emergency room. X-rays done there demonstrated no acute abnormality and she was sent here for follow-up. She still has soreness and very guarded on exam with the shoulder. She has poor effort with range of motion and strength testing. She still smells of smoke. She had a new injury to the shoulder when it got jerked and she has had a flare up of her symptoms. She has been taking anti-inflammator ies without significant improvement. We gave her order for a Medrol Dosepak that she can try and we will continue with physical therapy. With regards to PT, they can potentially add modalities such as ultrasound or stem to help improve this. We discussed that there should be no structural limitations to her range of motion and I encouraged her to move her arm more and really work with rehab. She is very apprehensive about doing anything with the arm. We can see her back in another 6 weeks or so. If she has persistent symptoms, without any improvement at all, we may have to refer her to pain management to see if they have any other suggestions on treatments for her Not available 11/26/2024 16:01:00 Plan of Treatment Reminders Order Date Submit Date Provider Last Modified By Organization Details Last Modified Time Details Appointments Any 5 2024 09:05A M Hollis Abreu MD Not available Not available Not available New Patient 40 2024 01:45P STEPAN Mccall Not available Not available Not available Follow Up 15 2024 03:30P Paolo martinez MD Not available Not available Not available Lab vitamin D, 25-hydrox y, total, serum 2024 025 [facility] (Lab), [address] [place], [address], 11/10/2024 18:01:13 lipid panel, serum 2024 025 [facility] (Lab), [address] [place], [address], 11/10/2024 18:01:12 CBC w/ auto diff 2024 025 [facility] (Lab), [address] [place], [address], 11/10/2024 18:01:12 TSH, serum or plasma 2024 025 [facility] (Lab), [address] [place], [address], 11/10/2024 18:01:12 CMP, serum or plasma 2024 025 [facility] (Lab), [address] [place], [address], 11/10/2024 18:01:12 vitamin B12 + folate, serum or blood 2024 025 [facility] (Lab), [address] [place], [address], 11/10/2024 18:01:13 vitamin D, 25-hydrox y, total, serum 2024 025 [facility] (Lab), [address] [place], [address], 09/25/2024 08:08:45 lipid panel, serum 2024 025 [facility] (Lab), [address] [place], [address], 09/25/2024 08:08:46 CBC w/ auto diff 2024 025 [facility] (Lab), [address] [place], [address], 09/25/2024 08:08:45 TSH, serum or plasma 2024 025 [facility] (Lab), [address] [place], [address], 09/25/2024 08:08:46 CMP, serum or plasma 2024 025 [facility] (Lab), [address] [place], [address], 09/25/2024 08:08:46 vitamin B12 + folate, serum or blood 2024 025 [facility] (Lab), [address] [place], [address], 09/25/2024 08:08:45 Referral physical therapist referral - continuat ion of therapy for R shoulder. TENS/STIM /US 2024 025 [facility] [place] [facility], [address], [place], [address], 11/26/2024 17:30:36 physical therapist referral - continuat ion of therapy for R shoulder 2024 025 [facility] [place] [facility], [address], [place], [address], 11/20/2024 11:04:36 obstetric rivas and gynecolog ist referral - Please call patient to schedule an appointme nt. Thank you 2024 025 [facility], [address], [place], [address], 11/11/2024 09:55:24 physical therapist referral - Please schedule pt for R shoulder post op. Thanks [address] [facility] [place] [facility], [address], [place], [address], 11/03/2024 16:32:57 obstetric rivas and gynecolog ist referral - Please call patient to schedule an appointme nt. Thank you 2024 025 GIOVANA Fernandez, [address], [place], [address], 09/24/2024 16:58:17 psychiatr ist referral - Please call patient to schedule an appointme nt. Thank you. 2024 025 [facility], [address] [facility] [address], [place], [address], 10/01/2024 12:08:28 Procedures None recorded. Surgeries None recorded. Imaging XR, shoulder, 2 or more view 2024 025 [email or web address] [place], [address], [place], [address], 11/26/2024 17:17:19 XR, shoulder, 2 or more view 2024 025 [email or web address] [place], [address], [place], [address], 11/26/2024 17:17:26 Medication Orders Medrol (Hugo) 4 mg tablets in a dose pack 2024 025 [facility]170, [address] [place], [place], [id number], 11/26/2024 15:56:42 meloxicam 15 mg tablet 2024 025 [id number], [address] [place], [place], [id number], 11/20/2024 11:04:08 hydrocodo ne 5 mg-acetam inophen 325 mg tablet 2024 025 [facility][id number], [address] [place], [place], [id number], 10/21/2024 10:40:18 Patient TargetsNo targets recorded. Patient Instructions Encounter Date Encounter Id Patient Instructions Last Modified By Organization Details Last Modified Time 09/24/2024 [id number] Thank you for your visit to our [...] Not available 09/24/2024 15:49:17 Homebound Status : Required Home Health Services: Durable Medical Equipment needed: Billing Guidelines CPT code 19163- Transitional Care Management services with moderate medical decision complexity (kupc-zx-kjhh visit within 14 days of discharge). CPT code 06017- Transitional Care Management services with high medical decision complexity (yuna-rz-rkiw visit within 7 days of discharge). [email or web address] Not available 09/24/2024 15:49:17 Reason for Referral Ratchet Setter And Gynecologis t Referral for Gynecologic examination Please call patient to schedule an appointment. Thank you Referring Physician: Nathalia Melton, Internal Medicine, Encounter Date: 09/24/2024 Psychiatrist Referral for Mi xed anxiety and depressive disorder Please call patient to schedule an appointment. Thank you. Referring Physician: Nathalia Melton, Internal Medicine, Encounter Date: 09/24/2024 Physical Therapist Referral for Pain of right shoulder joint R shoulder post op Please schedule pt for R shoulder post op. Thanks Referring Physician: Makenna Don, Orthopedic Surgery, Encounter Date: 10/21/2024 Ratchet Setter And Gynecologis t Referral for Gynecologic examination Please call patient to schedule an appointment. Thank you Referring Physician: Nathalia Melton, Internal Medicine, Encounter Date: 11/10/2024 Physical Therapist Referral for Pain of right shoulder joint R shoulder continuation of therapy for R shoulder Referring Physician: Hollis Abreu, Orthopedic Surgery, Encounter Date: 11/19/2024 Physical Therapist Referral for Pain of right shoulder joint R shoulder continuation of therapy for R shoulder. TENS/STIM/US Referring Physician: Hollis Abreu, Orthopedic Surgery, Encounter Date: 11/26/2024 Results Created Date Observation Date Name Description Value Unit Range Abnormal Flag Note LastModifiedBy Organization Detail LastModifiedTime 11/26/19 25 11/24/2024 XR, shoul yashira, 2 or more view No observ ation record ed. [email or web address] Not Available 05/2024 11:14:35 11/26/19 25 11/24/2024 XR, humer us, 2 or more view No observ ation record ed. [email or web address] Not Available 05/2024 11:14:36 11/26/19 25 11/24/2024 CT, shoul yashira, w/o contr ast No observ ation record ed. [email or web address] Not Available 05/2024 11:14:36 11/27/19 25 XR, shoul yashira, 2 or more view No observ ation record ed. [email or web address] [facility] [place] [address], [place], [address], 11/26/2024 15:35:46 11/27/19 25 XR, shoul yashira, 2 or more view No observ ation record ed. [email or web address] [facility] [place] [address], [place], [address], 11/26/2024 15:35:48 Result Notes None recorded. Problems Name Problem SNOMED Code Status Onset Date Resolution Date Notes Provider Name and Address Organization Details Recorded Time Cigarette smoker 90138215 Active 2024 Nathalia martinez MD [address], [facility] [address], [place], [address], [employer] [place] [facility] [employer] [facility] 5 15:39:41 Mixed anxiety and depressive disorder 423228509 Active 2024 Nathalia martinez MD [address], [address], [place], [address], [place] [facility] [employer] [facility] 5 15:41:44 Vitamin D deficiency 57080060 Active 2024 Nathalia martinez MD [address], [address], [place], [address], [place] - [facility] [employer] [facility] 5 15:42:07 Serum vitamin B12 below reference range 863284688 Active 2024 Nathalia martinez MD [address], [address], [place], [address], [place] [facility] [employer] 5 15:42:16 Pain of right shoulder joint 9510158564944 9100 Active 2024 Nathalia martinez MD [address], [address], [place], [address], [employer] 5 16:04:25 Low back pain 579807082 Active 2024 Nathalia martinez MD [address], [address], [place], [address], [employer] - [facility] [employer] [facility] 5 16:04:47 Dental caries 72606347 Active 2024 Nathalia martinez MD [address], [address], [place], [address], [employer] - [facility] [employer] [facility] 5 16:21:23 Hyperlipide negro 34639835 Active 2024 Nathalia martinez MD [address], [address], [place], [address], [place] - [facility] [employer] [facility] 5 16:05:10 Atrial fibrillatio n 62166272 Active 2024 GILA Winters [facility] [employer] [facility] 5 18:17:52 Problem Notes None recorded. Procedures Surgical History Date Name Laterality Status Provider Name and Address Organization Details Recorded Time 10/10/19 Shoulder completed GILA Christopher [facility] [employer] [facility] 11/06/2024 16:07:41 06/25/19 25 Ortho - Cortisone Injection completed Hollis Abreu MD [address] [place] [address], [address] [employer] [facility] 06/25/2024 11:59:34 completed GILA Winters [facility] [employer] [facility] 06/04/2024 15:31:16 Cholecystectomy completed Seema Gomez GILA [facility] [employer] [facility] 06/04/2024 15:31:26 Imaging Results None recorded. Procedure Notes None recorded. Medical Equipment None Reported. Allergies Allergen ID Allergen Name Allergen Category Reaction Reaction Severity Criticality Documentation Date Start Date Code Code System Note Provider Name and Address Organization Details Recorded Time 70627 Reglan medicatio n hallucina tions Not available Not available 06/25/2024 9230 RxNorm Maria Fernanda Mckeonike GILA lester [facility] [employer] [facility] 5 09:32:08 96114 tramadol medicatio n hallucina tions Not available Not available 06/25/2024 02043 RxNorm Maria Fernanda Vin GILA lester [facility] [employer] [facility] 5 09:32:21 63283 rosuvasta tin medicatio n other Not available Not available 09/24/2024 58645 2 RxNorm Leg pain, Chest pain, Short ness of breat h TYRON Hoyos [facility] [employer] [facility] 15:59:35 Medications Name Sig Start Date Stop Date Status Note LastModified by Organization Details LastModified Time celecoxib 200 mg capsule TAKE 1 CAPSULE BY MOUTH EVERY DAY 08/21 completed Not Available Not Available Not Available ibuprofen 800 mg tablet TAKE 1 TABLET BY MOUTH EVERY 8 HOURS active Not Available Not Available No t Available hydrocodone 5 mg-acetamin ophen 325 mg tablet TAKE 1 TABLET BY MOUTH EVERY 6 HOURS NEEDED FOR PAIN active Not Available Not Available No t Available meloxicam 15 mg tablet TAKE 1 TABLET BY MOUTH EVERY DAY active Not Available Not Available No t Available bupivacaine HCl 0.5 % (5 mg/mL) [...] Not Available Not Available No t Available penicillin V potassium 500 mg tablet Take 1 tablet every 8 hours by oral route. active Not Available Not Available No t [...] 1 mL by injection route. 07/02 completed [facility]: 0003- 0494- 20 Not Available Not Available Not Available gabapentin 300 mg capsule 09/24 completed Not Available Not Available Not Available sertraline 25 mg tablet TAKE 1/2 TABLET BY MOUTH DAILY 06/25 completed Not Available Not Available Not Available methylpredn isolone 4 mg tablets in a dose pack FOLLOW PACKAGE DIRECTION S active Not Available Not Available No t Available Percocet 5 mg-325 mg tablet Take 1 tablet every 6 hours by oral route. 11/10 completed Not Available Not Available Not Available amoxicillin 875 mg-potassiu m clavulanate 125 mg tablet TAKE 1 TABLET BY MOUTH EVERY 12 HOURS FOR 7 DAYS 11/10 completed Not Available Not Available Not Available amoxicillin 500 mg-potassiu m clavulanate 125 mg tablet TAKE 1 TABLET BY MOUTH EVERY 8 HOURS 06/25 completed Not Available Not Available Not Available hydroxyzine pamoate 25 mg capsule TAKE 1 CAPSULE BY MOUTH THREE TIMES DAILY NEEDED 11/10 completed Not Available Not Available Not Available rosuvastati n 40 mg tablet TAKE [...] in Arterial blood by Pulse oximetry Systolic And Diastolic Provider Name and Address Organization Details Last Updated DateTime 5 154.94 cm 33.6 kg/m2 87045.4 4 g 97.5 [degF] 100 /min 100 % 100 % 120/78 mm[Hg] Joana Dasilva MA [facility] [employer] 5 15:52:54 Date Recorded Body height Body mass index (BMI) Body weight Provider Name and Address Organization Details Last Updated DateTime 10/21/2024 154.94 cm 34.4 kg/m2 44790.81 g GILA Christopher [facility] [employer] [facility] 10/21/2024 10:07:04 Date Recorded Body height Body mass index (BMI) Body weight Body temperature Heart rate Oxygen saturation Oxygen saturation in Arterial blood by Pulse oximetry Systolic And Diastolic Provider Name and Address Organization Details Last Updated DateTime 5 154.94 cm 34.4 kg/m2 36414.8 1 g 97.1 [degF] 82 /min 99 % 99 % 126/82 mm[Hg] Joana Dasilva MA [facility] [employer] [facility] 5 15:08:55 Date Recorded Body height Body mass index (BMI) Body weight Provider Name and Address Organization Details Last Updated DateTime 11/19/2024 154.94 cm 34.4 kg/m2 46288.81 [email or web address] Banuelos GILA [employer] [facility] [employer] 11/19/2024 13:46:12 Date Recorded Body height Body mass index (BMI) Body weight Provider Name and Address Organization Details Last Updated DateTime 11/26/2024 154.94 cm 34.4 kg/m2 40299.81 GILA Delgado [employer] [facility] 11/26/2024 15:25:01 Social History Question Answer Notes LastModified by Organization Details LastModified Time Tobacco Smoking Status Current Every Day Smoker GILA Winters [facility] [employer] 06/04/2024 15:25:18 Do You Have An Advance [...] Or The Highest Degree You Have Received? [id number] She Is Getting Her GED At Present Time Information not available 06/04/2024 Have There Been Any Changes To Your Family Or Social Situation? No Information not available 09/24/2024 What Is The Fluoride Status Of Your Home? Unknown Information not available 06/04/2024 Are There Any Guns Present In Your Home? No Information not available 06/04/2024 Do You Use Insect Repellent Routinely? No Information not available 09/24/2024 Where Do You Live? [facility] Information not available 06/04/2024 Do You Have A Medical Power Of Idea Man? No Information not available 06/04/2024 What Was The Date Of Your Most Recent Tobacco Screening? 11/10/2024 Information not available 11/10/2024 How Many Children Do You Have? 1 [...] 06/04/2024 How Much Tobacco Do You Smoke? 0.5 PPD Information not available 11/10/2024 Do You Use Sunscreen Routinely? No Information [...] anxious, or unable to sleep at night)? [id number] Information not available 06/04/2024 Family History Relationship [...] HAVE YOU BEEN HOSPITALIZED OR SEEN IN [facility] IN THE PAST YEAR ? N [...] PULMONARY EMBOLISM N AUTOIMMUNE DISEASE N Gynecological History Statement/Question Response How many live births 1 Date of Last Pap Current Control Method None Date of LMP 11/02/2024 Obstetrics History GPAL:G 1 P 1 0 1 1 Type Value Multiple Births 0 Full Term 1 Induced 0 Spontaneous 1 Premature 0 Living 1 Ectopics 0 Total 1 Immunizations Vaccine Type Date Status Note Provider Nam e and Address Organization Details Recorded Time MMR 0 completed Seema Montgomery, RMA null, [place] [facility] [place] [facility] 06/04/2024 15:21:31 MMR 1 completed Seema Montgomery, RMA null, [place] [facility] 06/04/2024 15:21:31 DT (pediatric) 0 completed Seema Montgomery, RMA null, [place] [facility] 06/04/2024 15:21:31 DT (pediatric) 9 completed Seema Montgomery, RMA null, [place] [facility] 06/04/2024 15:21:31 DT (pediatric) 8 completed Seema Jason, RMA null, [place] [facility] 06/04/2024 15:21:31 DT (pediatric) 8 completed Seema Montgomery, RMA null, [place] [facility] 06/04/2024 15:21:31 DT (pediatric) 3 completed Seema [place], RMA null, [place] [facility] 06/04/2024 15:21:31 OPV 0 completed Seema Jason, RMA null, [place] [facility] 06/04/2024 15:21:31 OPV 8 completed Seema Jason, RMA null, [place] [facility] 06/04/2024 15:21:31 OPV 8 completed Seema Montgomery, RMA null, [place] [facility] [place] [facility] 06/04/2024 15:21:31 OPV 3 completed Seema Gomez RMA null, [place] [facility] [place] [facility] 06/04/2024 15:21:31 Td (adult), 2 Lf tetanus toxoid, preservative free, adsorbed 9 completed Seema Gomez RMA null, [place] [facility] 06/04/2024 15:21:31 Hep B, adolescent or pediatric 9 completed Seema Gomez RMA null, [place] [facility] 06/04/2024 15:21:31 Hep B, adolescent or pediatric 8 completed Seema Gomez RMA null, [place] - [facility] 06/04/2024 15:21:31 Hep B, adolescent or pediatric 9 completed Seema Gomez RMA null, [facility] 06/04/2024 15:21:31 Influenza, split virus, trivalent, PF 5 completed Nathalia Melton MD [address], [address], [facility] [employer] [facility] 06/23/2024 14:21:40 Past Encounters Encounter ID Performer Location Encounter Start Date Encounter Closed Date Diagnosis/Indication Diagnosis SNOMED-CT Code Diagnosis ICD10 Code Diagnosis Note [id number] Nathalia lutz MD [facility] [address] [place] [address] 06/04/2024 14:55:26 06/04/2024 16:11:01 Screening - NAD 066417182 Z13.9 PAP: Get this Get yearly flu shot, can do Tdap if not doneCan do COVID 19 boosters RTC in one month, do labs, ER if worse, she is very appreciati ve to this plan of care Cigarette smoker 0388026 7 F17.210 Advised to quit! declined any NRT Mixed anxi ety and depressive disorder 010052740 F41.8 On clonazepam On duloxetine 60mg dailySees her psychiatri st in [place], want to see in [facility], referred 06/04/2024 Hyperlipid emia screening 950966531 Z13.220 Vitamin D deficiency 347 06178 E55.9 Serum tanna min B12 below reference range 760202953 R79.89 Pain of ri ght shoulder joint 7151629883 6354845 M25.511 Will refer to ortho Low back pain 424228391 M54.50 Will refer to pain management , advised to keep and take her MRI reports to pain management Gynecologi c examination 18240192 Z01.419 Dental caries 65919846 K 02.9 Needs to keep her apt with dentist, will get on augmentin po all side effects explained to her Administra tion of influenza vaccine [id number] Z23 [id number] Hollis Abreu MD [facility] [address] [place] [address] 06/25/2024 09:11:36 06/25/2024 11:40:32 Pain of right shoulder joint [id number] M25.704 [id number] Nathalia lutz MD [facility] Primary Care [facility] [address] [place] [address] 07/02/2024 13:57:42 07/02/2024 14:47:44 Screening - NAD [id number] Z13.9 PAP: Get this Get yearly flu shot, can do Tdap if not doneCan do COVID 19 boosters RTC in one month, do labs, ER if worse, she is very appreciati ve to this plan of care Cigarette smoker [id number] 7 F17.210 Advised to quit! declined any NRT Mixed anxi ety and depressive disorder [id number] F41.8 On clonazepam , filled by Mike King 06/06/2024 for #90 tabletsOn duloxetine 60mg dailyNot suicidal or homicidalS ees her psychiatri st [place], want to see in [facility], referred 06/04/2024 , 07/02/2024 Hyperlipid emia screening 499370960 Z13.220 Vitamin D deficiency 347 44654 E55.9 Serum tanna min B12 below reference range 934691702 R79.89 Pain of ri ght shoulder joint [id number] 1917912 M25.511 Dr Rouse on celebrex, f/u apt 08/27/2024 Now needs to see Dr Lois BROWNP again as the shot or the meds are not helping her Low back pain 970622696 M54.50 Referred to pain management , advised to keep and take her MRI reports to pain management , was referred last OV, today 07/02/2024 states that she has been given paper work to fill out and she just got it today for the pain management to see her, advised to fill out the paperwork so she can be seen JAMIE Gynecologi c examination [id number] Z01.675 [id number] Hollis Abreu MD [facility] [address] [place] [address] 07/09/2024 10:49:49 07/09/2024 12:08:32 Pain of right shoulder joint 8860329228 [id number] M25.131 [id number] Nathalia lutz MD [facility] [place] [facility] [address] [place] [address] 08/04/2024 15:20:15 08/04/2024 16:25:01 Screening - NAD 872833278 Z13.9 PAP: Get this Get yearly flu shot, can do Tdap if not doneCan do COVID 19 boosters RTC in 3 months, do labs, ER if worse, she is very appreciati ve to this plan of care Cigarette smoker 8254919 7 F17.210 Advised to quit! declined any NRT Mixed anxi ety and depressive disorder 666301372 F41.8 On clonazepam , filled by Mike King 06/06/2024 for #90 tabletsOn duloxetine 60mg daily filled by Mike KingNot suicidal or homicidalS ees her psychiatri st [place], will again refer to Marie Norton INSTRUMENT ENGINEER Vitamin D deficiency 347 71189 E55.9 Get on vit d and repeat the labs Serum tanna min B12 below reference range 772754176 R79.89 Pain of ri ght shoulder joint 5929006927 6678034 M25.511 Dr Rouse on celebrex, f/u apt 08/27/2024 [address] needs to see Dr Lois AYALA again as the shot or the meds are not helping her OV 08/04/2024 : Get MR arthrogam Low back pain 752047058 M54.50 Referred to pain management , advised to keep and take her MRI reports to pain management , was referred last OV, today 07/02/2024 states that she has been given paper work to fill out and she just got it today for the pain management to see her, advised to fill out the paperwork so she can be seen JAMIE Gynecologi c examination 63229377 Z01.419 Hyperlipidemia 96955452 E78.5 Get on crestor 40mg daily, more diet and exerciseGe t labs [id number] Hollis Abreu MD [facility] [address] [place] [address] 08/27/2024 11:02:53 08/27/2024 12:16:07 Pain of right shoulder joint 1816374251 [id number] M25.459 [id number] Nathalia lutz MD [facility] [place] [facility] [address] [place] [address] 09/24/2024 15:21:26 09/24/2024 16:29:44 Screening - NAD 178119195 Z13.9 PAP: Get this Get yearly flu shot, can do Tdap if not doneCan do COVID 19 boosters RTC in 3 months, do labs, ER if worse, she is very appreciati ve to this plan of care Cigarette smoker 7349363 7 F17.210 Advised to quit! declined any NRT Mixed anxi ety and depressive disorder 058746915 F41.8 On clonazepam , filled by Mike King 06/06/2024 for #90 tabletsOn duloxetine 60mg daily filled by Mike KingNot suicidal or homicidalS ees her psychiatri st [place], will again refer to Marie Norton NP OV 09/24/2024 :On clonazepam On duloxetine On hydroxyzin eSee psychiatry Vitamin D deficiency 347 51296 E55.9 Get on vit d and repeat the labs Serum tanna min B12 below reference range 119418312 R79.89 Pain of ri ght shoulder joint 6594304112 3723315 M25.511 Dr Rouse on celebrex, f/u apt 08/27/2024 [address] to see Dr Abreu JAMIE again as the shot or the meds are not helping her OV 08/04/2024 : Get MR arthrogam OV 09/24/2024 :S/p MR arthrogram 08/21/2024 and is to get surgery 10/09/2024 at [facility] Low back pain 121501381 M54.50 Referred to pain management , advised to keep and take her MRI reports to pain management , was referred last OV, today 07/02/2024 states that she has been given paper work to fill out and she just got it today for the pain management to see her, advised to fill out the paperwork so she can be seen JAMIE OV 09/24/2024 : Did see pain management and will keep the apt Gynecologi c examination 73227909 Z01.419 Hyperlipidemia 04127071 E78.5 Get on crestor 40mg daily, more diet and exerciseGe t labs [id number] Hollis Abreu MD [facility] [address] [place] [address] 10/21/2024 10:02:30 10/21/2024 10:27:54 Pain of right shoulder joint 7225279849 2708905 M25.684 [id number] Nathalia lutz MD [facility] Primary Care [facility] [address] [place] [address] 11/10/2024 15:01:53 11/10/2024 16:04:12 Screening - NAD 516670148 Z13.9 PAP: Get this Get yearly flu shot, can do Tdap if not doneCan do COVID 19 boosters RTC in 3 months, do labs, ER if worse, she is very appreciati ve to this plan of care Cigarette smoker 8819463 7 F17.210 Advised to quit! declined any NRT Mixed anxi ety and depressive disorder 433891733 F41.8 On clonazepam , filled by Mike King 06/06/2024 , 5On duloxetine 60mg daily filled by Mike KingNot suicidal or homicidalS ees her psychiatri st [place] Vitamin D deficiency 347 09798 E55.9 Get on vit d and repeat the labs Serum tanna min B12 below reference range 344047386 R79.89 Pain of ri ght shoulder joint 4813639110 6164495 M25.511 Dr Rouse on celebrex, f/u apt 08/27/2024 [address] needs to see Dr Abreu JAMIE again as the shot or the meds are not helping her OV 08/04/2024 : Get MR arthrogam OV 09/24/2024 :S/p MR arthrogram 08/21/2024 and is to get surgery 10/09/2024 at [facility] OV 11/10/2024 :S/p surgeryNex t apt 11/19/2024 Low back pain 513811106 M54.50 Referred to pain management , advised to keep and take her MRI reports to pain management , was referred last OV, today 07/02/2024 states that she has been given paper work to fill out and she just got it today for the pain management to see her, advised to fill out the paperwork so she can be seen JAMIE OV 09/24/2024 : Did see pain management and will keep the apt OV 11/10/2024 : Seen by pain management , has had 'shots' in her back Gynecologi c examination 67467524 Z01.419 Hyperlipidemia 51626431 E78.5 Get on crestor 40mg daily,decl ined 11/10/2024 , wants more diet and exercise, especially now that she has had her shoulder surgeryGet labs [id number] Hollis Abreu MD [facility] [address] [place] [address] 11/19/2024 13:43:53 11/19/2024 14:18:51 Pain of right shoulder joint 1226711316 2332596 M25.751 [id number] Hollis Abreu MD [facility] [address] [place] [address] 11/26/2024 15:23:25 11/26/2024 16:00:09 Pain of right shoulder joint 2366599025 2363773 M25.511 Health Concerns Section Related Observation LastModified by Organization Detai ls LastModified Time None Recorded Concern Status LastModified by Organization Details LastModified Time None Recorded Advance Directives Directive N: Payers Insurance Date Sequence Insurance Name Policy Number Policy Galloway Covered Member ID Galloway Member ID Guarantor Name 11/25/2024 1 [facility] - DOS ON OR AFTER 20 (MEDICAID REPLACEMENT - HMO) Queozzy Salcedo [id number] Quenetta Salcedo 10/20/2024 2 [place] Quenetta Salcedo [id number] Quenetta Salcedo Notes Date Note Type Note Provider Name and Address Organization Details Recorded Time 09/24/2024 text/html OV 06/04/2024:He re to establish care Present Hx:LBPR shoulder painAnxiety depression Here to discuss above, states that she was involved in a work related accident in 2020 at [employer] and now has R shoulder and LBPR shoulder pain is sharp and increases with raising her arm and lying on the shoulder, no N/T or weakness in the deposit refund clerk, she is RHDLBP is mid lower back, [...] not yet seen her psychiatrist as the [place] psychiatrist required her to be seen by [...] management and now has to get PT OV 09/24/2024: Here for her f/u apt, she is doing well and is now to get shoulder surgery s/p MR arthogram Nathalia Melton MD [address], [place], [address], [facility] 09/24/2024 18:51:16 11/10/2024 text/html OV 06/04/2024:He re to establish care Present Hx:LBPR shoulder painAnxiety depression Here to discuss above, states that she was involved in a work related accident in 2020 at [employer] and now has R shoulder and LBPR shoulder pain is sharp and increases with raising her arm and lying on the shoulder, no N/T or weakness in the deposit refund clerk, she is RHDLBP is mid lower back, [...] not yet seen her psychiatrist as the [place] psychiatrist required her to be seen by PCP twice prior to scheduling an appointment, she is quite upset at this and would like an appointment to psychiatry [facility] OV 08/04/2024: Here for her f/u apt, she has seen her psychiatrist who has given her more 'meds' but she would like to see another psychiatrist, she was also seen by ortho and was told to get an MR arthrogram and also seen by pain management and now has to get PT OV 09/24/2024: Here for her f/u apt, she is doing well and is now to get shoulder surgery s/p MR arthogram OV 11/10/2024: Here for her f/u apt, she feels today, she did do the surgery and is now doing PT Nathalia Melton MD [address], [place], [address], [place] [facility] 11/10/2024 17:27:15 OBGyn Episode No OBEpisode recorded.
--- OUTSIDE RECORDS SUMMARY | 2024-12-02 01:35 | XMS_ITS ---
Author Organization Unknown Plan of Treatment Description Planned Activity Planned Timing [facility] is a provider organization who partners directly with Health Plans and provides integrated primary care, behavioral health, and social and political studies professor for an attributed population Letter encounter to patientTelephone encounter Nov 20, 2024Jul 2024 Patient Care team information Name Category Status Period Participants - - Proposed period not known -
[2024-12-02 01:36] VITALS: BP 154/101; PULSE 101; RESP 18; O2SAT 100
--- NOTE | 2024-12-02 02:31 | ED_ITS ---
HPI - General Adult General Chief complaint: Extremity Injury, Upper Stated complaint: right shoulder pain Time Seen by Provider: 12/02/24 01:47 History of Present Illness HPI narrative: Patient is a 39-year-old female who presents emergency department this evening complaining of right shoulder pain. States that she had right shoulder surgery on September and since then she has re-injured her right shoulder a few times. Since her last injury she did have an MRI performed at outside facility, [place] which did not reveal any acute process. She was told that she likely strained or pulled something. Patient states she has been taking naproxen with minimal to no relief of her pain. She did receive steroids but admits that did not help her symptoms. States that the pain today prevented her from being able to sleep and is here today requesting pain medication. Related Data Home Medications ?Medication ?Instructions ?Recorded ?Confirmed ?Last Taken ?Type duloxetine 60 mg capsule,delayed mg PO 09/29/24 Unknown History release hydroxyzine pamoate 25 mg capsule mg 09/29/24 Unknown History Allergies Allergy/AdvReac Type Severity Reaction Status Date / Time metoclopramide AdvReac Intermediate HALLUCINATI Verified 10/09/24 17:10 ONS tramadol AdvReac Mild Confusion Verified 10/09/24 17:10 Review of Systems Review of Systems: All systems are reviewed and are negative unless stated otherwise in the HPI. [facility] Past Medical History Medical History GERD (gastroesophageal reflux disease) History of ovarian cyst Anxiety Depression Surgical History Surgical History H/O shoulder surgery Hx of section Family History Family History Mother Hypertension Grandparent Hypertension Diabetes mellitus Other Asthma Social History Social History Smoking packs per day: 0.5 Smoking cigarettes per day: 10.0 Smoking status: Current every day smoker Substance use: never Gender identity (if verbalized by the patient): Female Exam Narrative: General: Alert, awake, afebrile, in no acute distress. HEENT: PERRL, no rhinorrhea, no post nasal drip, oropharynx clear. Neck: Trachea midline, no JVD, no lymphadenopathy. Cardiovascular: Regular rate and rhythm, no murmurs, rubs or gallops, no peripheral edema. Respiratory: Clear to auscultation bilaterally, no tachypnea, no wheezing, no rhonchi, no rubs, no respiratory distress. Abdomen: Soft, nontender, nondistended, no rebound, no guarding, no peritoneal signs. Musculoskeletal: No joint swelling or deformity specifically in the right shoulder joint, intact range of motion although patient reports some pain with range of motion, normal muscle tone. Skin: No rashes or petechia, no signs of infection. Psychiatric: Alert and oriented, normal behavior and judgment for situation. Neurological: Alert and oriented to person, place, and time. Follows all commands. No focal deficits, speech is clear and fluent. Course Vital Signs Vital signs: Vital Signs Pulse Rate 101 H 12/02/24 01:36 Respiratory Rate 18 12/02/24 01:36 Blood Pressure 154/101 H 12/02/24 01:36 Pulse Oximetry 100 12/02/24 01:36 Oxygen Delivery Room Air 12/02/24 01:36 Pulse Rate 101 H 12/02/24 01:36 Respiratory Rate 18 12/02/24 01:36 Blood Pressure 154/101 H 12/02/24 01:36 Pulse Oximetry 100 12/02/24 01:36 Oxygen Delivery Room Air 12/02/24 01:36 Medical Decision Making MDM Narrative Medical decision making narrative: The patient was evaluated by myself in the emergency department. History is obtained from patient who is an independent historian and physical exam was performed. External medical records were reviewed at this time. Patient was administered an oral Hendley 5-325 mg. Differential diagnosis considerations include shoulder sprain, fracture, dislocation although unlikely giving intact range of motion at the right shoulder joint. Comorbidities impacting this visit include recent right rotator cuff of repair surgery. I have evaluated and discussed social determinants of health with the patient that could potentially impact subsequent diagnosis and treatment plans. On repeat assessment of the patient, reevaluation revealed that the patient is doing well and is in no acute distress. Patient symptoms have improved since she arrived to our emergency department. Repeat vital signs were all reviewed and noted to be stable. Differential diagnosis and treatment plan were discussed with the patient at bedside. Patient agrees with discussion and after shared medical decision making agrees with discharge. All questions were answered to the patient's satisfaction. Patient will follow up with orthopedic surgeon in 3-5 days. Patient was provided with strict return precautions and instructed to return to the emergency department if any new or worsening symptoms develop. The patient was discharged in stable condition. Vital Signs Vital Signs: Vital Signs Pulse Rate 101 H 12/02/24 01:36 Respiratory Rate 18 12/02/24 01:36 Blood Pressure 154/101 H 12/02/24 01:36 Pulse Oximetry 100 12/02/24 01:36 Oxygen Delivery Room Air 12/02/24 01:36 Pulse Rate 101 H 12/02/24 01:36 Respiratory Rate 18 12/02/24 01:36 Blood Pressure 154/101 H 12/02/24 01:36 Pulse Oximetry 100 12/02/24 01:36 Oxygen Delivery Room Air 12/02/24 01:36 Discharge Plan Discharge Clinical Impression: Shoulder sprain Patient Disposition: Home Condition: Improved Instructions: Antibiotic Form, Shoulder Sprain (ED) Additional Instructions: Please follow-up with your orthopedic surgeon within the next 3-5 days. Take the prescribed medication as needed for pain. Return to the ED if any new or worsening symptoms develop. Patient Language: Martiniquais Prescriptions: New hydrocodone-acetaminophen 5-325 mg tablet 1 tablet PO Q8H PRN (Reason: pain) Qty: 8 0RF No Action hydroxyzine pamoate 25 mg capsule duloxetine 60 mg capsule,delayed release(DR/EC) PO albuterol sulfate [Ventolin HFA] 90 mcg/actuation HFA aerosol inhaler 2 puff inhalation QID PRN (Reason: shortness of breath or wheezing) Qty: 6.7 0RF Follow-up/Referrals: PHYSICIAN NOT ON STAFF,NONSTAFF [Primary Care Provider] - 3 Days Time of Disposition: 02:34
[2024-12-02] MEDS: HYDROcodone/acetaminophen (*CRX) 5-325 MG TABLET 1 TAB PO (02:35)
--- OUTSIDE RECORDS SUMMARY | 2024-12-02 02:45 | XMS_ITS | Clinical Summary ---
Author Organization [facility] Address [address] [place] [address] Care Team Providers Care Blocklayer Name Role Phone Unavailable Primary Care Provider Unavailabl e Encounters Date Type Department Care Team Description 11/18/2024 External Device Data [facility] ABSTRACTION Provider, Abstract 11/11/2024 External Device Data [facility] AB[facility]CTION Provider, Abstract 10/16/2024 External Device Data [facility] AB[facility]CTION Provider, Abstract 10/14/2024 External Device Data [facility] AB[facility]CTION Provider, Abstract 09/09/2024 External Device Data [facility] AB[facility]CTION Provider, [...] 09/25/2017 PAP SMEAR 09/25/2017 INFLUENZA VACCINE (#1) 2024 HPV VACCINES Aged Out No longer eligi ble based on patient's age to complete this topic Insurance [employer]
--- OUTSIDE RECORDS SUMMARY | 2024-12-02 02:45 | XMS_ITS | Clinical Summary ---
Author Organization [facility] Address [address] [place] [address] Care Team Providers Care Pilot Control Operator Helper Name Role Phone Nathalia Melton MD Primary [...] CDT - 11/24/2024 6:20 AM CDT Emergency [facility] [place] [address] Soy Villeda MD,PHD Arm Injury Discharge Disposition: Home or Self Care (Routine Discharge) 11/24/2024 Travel 11/09/2024 4:06 PM CDT - 11/09/2024 4:23 PM CDT Emergency [facility] [place] [address] Omkar Alvarenga PA-C Dental Pain (Left upper) Discharge Disposition: Home or Self Care (Routine Discharge) 11/09/2024 Travel 10/03/2024 10:12 PM CDT - 10/03/2024 10:24 PM CDT Emergency [facility] [place] [address] Roxane Cancino PA Dental Pain Discharge Disposition: [...] 5:43 AM Narrative 11/24/2024 5:48 AM CDT [address] [address] EXAMINATION: CT right shoulder without contrast EXAM [...] Procedure Note Felipe Renteria MD - 11/24/2024 [facility] [address] [place], [place] [address] EXAMINATION: CT right shoulder without contrast EXAM [...] 4:42 AM Narrative 11/24/2024 4:48 AM CDT [address] [address] EXAMINATION: XR HUMERUS RT 2V, XR SHOULDER [...] Procedure Note Mahnaz May MD - 11/24/[address] [address] EXAMINATION: XR HUMERUS RT 2V, XR SHOULDER [...] 4:42 AM Narrative 11/24/2024 4:48 AM CDT [address] [address] EXAMINATION: XR HUMERUS RT 2V, XR SHOULDER [...] Procedure Note Mahnaz May MD - 11/24/[address] [address] EXAMINATION: XR HUMERUS RT 2V, XR SHOULDER [...] from Last 3 Months Insurance Care Teams Pilot Control Operator Helper Relationship Specialty Start Date End Date Nathalia Melton MD PCP - General INTERNAL MEDICINE 10/03/24
== END 2024-12-02 02:59 | disposition home or self-care (01) ==
PROVIDERS: Emergency Provider Emergency Medicine
DX: S43.401A Unspecified sprain of right shoulder joint, initial encounter (principal); K21.9 Gastro-esophageal reflux disease without esophagitis; F41.9 Anxiety disorder, unspecified; F32.A Depression, unspecified; X58.XXXA Exposure to other specified factors, initial encounter
CPT/HCPCS: 99283; A9270

== ENCOUNTER 2025-03-11 15:45 | Outpatient (CLI) | payer OTHER, SELFPAY ==
--- OUTSIDE RECORDS SUMMARY | 2025-03-11 16:00 | XMS_ITS | Encounter Summary ---
Author Organization [facility] [employer] Address [address] [place] [address] Care Team Providers Care Tentmaker Name Role Phone Unavailable Primary Care Provider Unavailabl e Reason for Visit * Reason Comments Establish Care Encounter Details Date Type Department Care Team ([facility] st Contact Info) Description 03/11/2025 4:00 PM CDT Office Visit [facility] Oncology and Hematology - Renan [address] [facility] [address] [place] [address] Jm Sotelo MD [address] [facility] [address] [place] [address] Reactive thrombocytosis (Primary Dx); Chronic anemia Social History Tobacco Use Types Packs/Day Years Used Date Smoking Tobacco: Every Day Cigarettes 1 21 Started: 03/11/2004 Smokeless Tobacco: Never Tobacco Cessation:Ready to Q uit: Not Asked; Counseling Given: Not Answered Alcohol Use Standard Drinks/Week Comments Never 0 (1 standard drink = 0.6 oz pur e alcohol) Comments Unknown Sex and Gender Information Value Date Recorded Sex Assigned at Not on file Legal Sex Female 12:02 PM CDT Gender Identity Not on file Sexual Orientation Not on file documented as of this encounter Last Filed Vital Signs Vital Sign Reading Time Taken Comments Blood Pressure 157/118 03/11/2025 3:15 PM CDT Pulse 112 03/11/2025 3:12 PM CDT Temperature 36.2 C (97.1 F) 03/11/2025 3:12 PM CDT Respiratory Rate 14 03/11/2025 3:12 PM CDT Oxygen Saturation 98% 03/11/2025 3:12 PM CDT Inhaled Oxygen Concentration - - Weight 87.5 kg (192 lb 12.8 oz) 03/11/2025 3:12 PM CDT Height 152.4 cm (5') 03/11/2025 3:12 PM CDT Body Mass Index 37.65 03/11/2025 3:12 PM CDT documented in this encounter Progress Notes * Jm Sotelo MD - 03/11/2025 3:27 PM CDT Hematology-oncology consult Note Requesting Physician Dre De Guzman MD Primary Care Physician No primary care provider on file. Problem list There is no problem list on file for this patient. Previous TREATMENT ? Measurable Disease ? Reason for Visit Lawrence Salcedo is a 39 y.o. female who was referred for consultation for thrombocytosis and anemia. History of present illness This is a pleasant 39-year-old obese -Dominican female with history of hyperlipidemia, depression and vitamin B12 deficiency has been receiving vitamin B12 injection on a monthly basis at the primary care office came into the office for anemia and thrombocytosis. She has been complaining of fatigue all day long. Her menstrual bleeding last for about 5 days of it are not heavy. She denies tiff ng a vegetarian. Denies any melena hematochezia. She has gained 30 pound weight in last 6 months duration. Denies any previous history of stomach surgeries. She has been complaining of headaches. No history of thromboembolic events other than vague history of blood clot in the lower extremity but Iwas not able to find any records. She is not taking any blood thinners. Denies any other complaints. Past Medical History Past Medical History: Diagnosis Date Depression Hyperlipidemia Hypertension Vascular disease Surgical History Past Surgical History: Procedure Laterality Date HX SECTION HX CHOLECYSTECTOMY HX ROTATOR CUFF REPAIR Medications Current Outpatient Medications Medication Sig Dispense Refill clonazePAM (KlonoPIN) 1 mg tablet Take 1 mg by mouth 2 times daily as needed. cyanocobalamin (VITAMIN B-12) 1,000 mcg/mL Solution Inject 1,000 mcg by intramuscular injection every 30 days. buPROPion HCL (WELLBUTRIN XL) 150 mg Extended Release 24 hour tablet Take 150 mg by mouth daily. ezetimibe (ZETIA) 10 mg tablet Take 10 mg by mouth daily. DULoxetine (CYMBALTA) 60 mg Capsule, Delayed Release(E.C.) Take 60 mg by mouth daily. No current facility-administered medications for this visit. Allergies Allergies Allergen Reactions Tramadol Hallucination Rosuvastatin Other (See Comments) rosuvastatin Metoclopramide Hcl Hallucination Immunizations: There is no immunization history on file for this patient. Family History Family History Problem Relation Name Age of Onset Heart Disease Father Hypertension Mother Hypertension Brother Hypertension Brother Hypertension Sister No Known Problems Child Social History Social History Tobacco Use Smoking status: Every Day Current packs/day: 0.50 Average packs/day: 1 pack/day for 21.0 years (20.5 ttl pk-yrs) Types: Cigarettes Start date: 03/11/2004 Smokeless tobacco: Never Substance Use Topics Alcohol use: Never Review of Systems Constitutional: Patient did not mention fever; no night sweats; no anorexia; 2 pound weight gain in6 months, complain of tiredness and fatigue NEENT: Patient did not mention headache; no change in vision; no change in hearing; no sore throat;no dysphagia Respiratory: Patient did not mention shortness of breath; no pleuritic chest pain; no cough; no hemoptysis Cardiac: Patient did not mention cardiac-like chest pain; no palpitations; no orthopnea; no PND; noDOE Breasts: Patient did not mention tenderness; no masses GI: Patient did not mention abdominal pain; no nausea; no vomiting; no diarrhea; no hematochezia; no melena : Patient did not mention dysuria; no frequency; no hesitancy; no hematuria IT APPLICATION ARCHITECT: Musculosketetal: Patient did not mention bone pain; no arthralgia; no joint swelling; no myalgia; Skin: Patient did not mention pruritis; no rash; no petechiae; no ecchymoses Endocrine: Patient did not mention polydipsia; no polyuria; no unusual weight gain Neuro: Complain of headache, no change in vision; no sensory changes; no muscle weakness; no confusion; no seizures Psych: Patient did not mention anxiety; no depression; Physical Exam Vitals: As per nursing note Constitutional: Well developed, well nourished, no acute distress, non-toxic appearance Teeth and gum. No signs of infection or swelling. Eyes: PERRL, conjunctiva normal HEENT: Atraumatic, external ears normal, nose normal, oropharynx moist, no pharyngeal exudates. no sinus tenderness Neck- normal range of motion, no tenderness, supple Respiratory: No respiratory distress, normal breath sounds, no rales, no wheezing Cardiovascular: Normal rate, normal rhythm, no murmurs, no gallops, no rubs GI: Soft, nondistended, normal bowel sounds, nontender, no splenomegaly, no hepatomegaly, no mass, no rebound, no guarding : No costovertebral angle tenderness Musculoskeletal: No edema, no tenderness, no deformities. Back- no tenderness Integument: Well hydrated, no rash, Digits and nails inspection normal Lymphatic: No lymphadenopathy noted Neurologic: Alert & oriented x 3, CN 2-12 normal, normal motor function, normal sensory function, no focal deficits noted Psychiatric: Speech and behavior appropriate ? labs No results found for this or any previous visit (from the past 24 hours). Labs from October 09, 2024 showed WBC 12.3 hemoglobin 10.9 platelet 435,000 MCV 85.3 Pathology ? Imaging & Other Studies Performance Status? Assessment / Plan: ? Thrombocytosis and anemia. Patient is a 39-year-old pleasant -Dominican female with history of depression, hyperlipidemia and vitamin B12 deficiency referred to me for thrombocytosis and anemia. She is quite symptomatic with tiredness and fatigue all day long. She denies any melena or hematochezia but her menstrual bleeding last for about 5 days. Denies any heavy menstrual bleeding. Denies any previous history of history of back surgery. Denies being a vegetarian. She has gained 30 pound weight in 6-month duration. He gave me a vague history of blood clot in the lower extremities but did not receive any anticoagulation therapy. I was not able to find any record of thrombosis. I have discussed the differential diagnosis of thrombocytosis and anemia. Most likely has thrombocytosis is secondary to iron deficiency. There is also possibility of reactive thrombocytosis secondary to arthralgia and bone pain. She had rotator cuff surgery done in the past. Essential thrombocythemia wouldbe unlikely in this age group. I will order the workup that would include CBC with differential, CMP, iron profile, B12 level and C-reactive protein and sedimentation rate. I will discuss the labs with patient in next week. I have answered all the questions to patient's satisfaction. Chronic anemia. Will check iron levels and B12 level today. She is not taking any iron supplement but has been receiving B12 injection on a monthly basis at the primary care doctor's office. Hyperlipidemia. Patient is on Zetia. Anxiety/depression. She is on Cymbalta and Wellbutrin. Thank you very much for allowing me to participate in Lawrence Salcedo's evaluation and management. Please feel free to contact if I can be of any further assistance in your patient???s care requiring hematology or oncology evaluation. Sincerely, ? ? Jm Sotelo M.D. cell TOBACCO COUNSELING She was counseled to discontinue tobacco/nicotine use. Jm Sotelo MD ,03/11/2025 3:41 PM ? Total time spent 60 minutes, two third of the total time spent counseling patient [id number]. CC:?Dre De Guzman MD documented in this encounter Plan of Treatment Upcoming Encounters Date Type Department Care Team (Late st Contact Info) Description 03/19/2025 4:30 PM CDT Telephone Check Up [facility] Oncology and Hematology - [place] [address] [place] [address] Jm Sotelo MD [address] [facility] [address] [place] [address] Scheduled Orders Name Type Priority Associated Diagnoses Orde r Schedule CBC WITH DIFFERENTIAL Lab Stat Reactive thrombocytosis Expected: 03/11/2025, Expires: 03/11/2026 COMPREHENSIVE METABOLIC PANEL Lab Stat Reactive thrombocytosis Expected: 03/11/2025, Expires: 03/11/2026 FERRITIN Lab Routine Reactive thrombocytosis Expected: 03/11/2025, Expires: 03/11/2026 IRON, TIBC, AND PERCENT SATURATION Lab Routine Reactive thrombocytosis Expected: 03/11/2025, Expires: 03/11/2026 C-REACTIVE PROTEIN Lab Routine Reactive thrombocytosis Expected: 03/11/2025, Expires: 03/11/2026 SEDIMENTATION RATE Lab Routine Reactive thrombocytosis Expected: 03/11/2025, Expires: 03/11/2026 TRANSFERRIN RECEPTOR TFR SOLUBLE Lab Routine Chronic anemia Expected: 03/11/2025, Expires: 03/11/2026 VITAMIN B12 AND FOLATE Lab Routine Chronic anemia Expected: 03/11/2025, Expires: 03/11/2026 documented as of this encounter Visit Diagnoses Diagnosis Reactive thrombocytosis- Primary Chronic anemia Anemia, unspecified documented in this encounter
[2025-03-11 16:16] LABS: Hematocrit 34.3 % (37.0-47.0); Hemoglobin 10.7 g/dL (12.0-15.0); Immature Granulocyte Percent A 0.1 % (0-0.5); Lymphocytes Absolute Auto 2.13 K/mm3 (0.9-3.2); Mean Corpuscular HGB Conc 31.2 g/dl (32-36); Mean Corpuscular Hemoglobin 27.4 pg (26-34); Mean Corpuscular Volume 87.7 fl (80-100); Nucleated Red Blood Cells Absolute Auto 0.000 K/mm3 (0.0-0.012); Nucleated Red Blood Cells Perc 0.0 % (0.0-0.2); Platelet Count Result 329 k/mm3 (150-375); Red Blood Count 3.91 M/mm3 (4.2-5.4); White Blood Count 7.0 K/mm3 (4.5-10.0)
[2025-03-11 17:22] LABS: Alanine Aminotransferase 15 U/L (6-35); Albumin Level 4.3 g/dL (3.5-5.1); Alkaline Phosphatase 87 U/L (38-126); Anion Gap 6 mmol/L (4-12); Aspartate Amino Transferase 22 U/L (14-36); Bilirubin,Total 0.3 mg/dL (0.2-1.3); Blood Urea Nitrogen 7 mg/dL (7-17); CRP 1.4 mg/dL (<1.0); Calcium 9.3 mg/dL (8.4-10.2); Carbon Dioxide 25 mmol/L (22-30); Chloride 106 mmol/L (98-107); Estimated Glomerular Filt Rate > 60; Glucose 80 mg/dL (65-110); Potassium 4.0 mmol/L (3.4-5.0); Sodium 137 mmol/L (137-145); Total Protein 8.2 g/dL (6.3-8.2)
--- OUTSIDE RECORDS SUMMARY | 2025-03-11 17:33 | XMS_ITS | Clinical Summary ---
Author Organization [facility] Address [address] [place] [id number] Care Team Providers Care Purchase Analyst Name Role Phone Nathalia Melton MD Primary [...] hours as needed. 30 tablet 08/07/2024 Active HYDROcodone-acet aminophen (NORCO) 5-325 MG tabletIndication s:Acute Pain < 7 Day Supply Take 1 tablet by mouth every 6 (six) hours as needed. Indications : Acute Pain < 7 Day Supply 10 tablet 11/09/2024 Active naproxen (NAPROSYN) 500 MG tablet Take 1 tablet (500 mg total) by mouth 2 (two) times daily with meals. 20 tablet 01/21/2025 Active Encounters Date Type Department Care Team Description 01/21/2025 12:20 AM CDT - 01/21/2025 12:26 AM CDT Emergency [facility] [place] [address] Darlin King PA Dental Pain Discharge Disposition: Home or Self Care (Routine Discharge) 01/21/2025 Travel from Last 3 Months Social History Tobacco Use Types Packs/Day Years Used Date Smoking Tobacco: Every Day Cigarettes Passive Smoke Exposure: Never Smokeless Tobacco: Never Tobacco Cessation:Ready to Q uit: Not Asked; Counseling Given: Not Answered Alcohol Use Standard Drinks/Week Comments Yes 0 (1 standard drink = 0.6 oz pur e alcohol) Comments No Sex and Gender Information Value Date Recorded Sex Assigned at Female 08/07/2024 11:26 AM CDT Legal Sex Female 4:38 PM CDT Gender Identity Not on file Sexual Orientation Not on file Last Filed Vital Signs Vital Sign Reading Time Taken Comments Blood Pressure 154/88 01/21/2025 12:25 AM CDT Pulse 99 01/21/2025 12:25 AM CDT Temperature 36.8 C (98.2 F) 01/21/2025 12:25 AM CDT Respiratory Rate 18 01/21/2025 12:25 AM CDT Oxygen Saturation 100% 01/21/2025 12:25 AM CDT Inhaled Oxygen Concentration - - Weight 85.9 kg (189 lb 6 oz) 01/20/2025 11:59 PM CDT Height 157.5 cm (5' 2) 01/20/2025 11:59 PM CDT Body Mass Index 34.64 01/20/2025 11:59 PM CDT Plan of Treatment Health Maintenance Due Date Last Done Comments Annual Physical 09/25/1990 DTaP, Tdap and Td Vaccines (2 - Tdap) 03/17/1999 03/16/1999, 03/03/1993, 06/05/1989, Additional history exists Hepatitis C 09/25/2005 Pneumococcal Vaccine: Pediatrics (0 to 5 Years) and At-Risk Patients (6 to 49 Years) (1 of 2 - PCV) 09/25/2006 HPV Vaccines (1 - 3-dose SCDM series) 09/25/2014 Cervical Cancer Screening Pap Smear (Age 30 to 64) Every 3 Years 11/23/2021 11/23/2018 Cervical Cancer Screening Pap with HPV Testing (Age 30 to 64) Every 5 Years 11/24/2023 11/23/2018 Cervical Cancer Screening with HPV 11/24/2023 COVID-19 Vaccine ( season) 2025 Influenza Adult (#1) 2025 06/04/2024 Hepatitis B Vaccines Completed 03/16/1999, 06/21/1998, 01/28/1998 Hepatitis A Vaccines Aged Out No long er eligible based on patient's age to complete this topic Meningococcal B Vaccine Aged Out No l onger eligible based on patient's age to complete this topic Meningococcal Vaccine Aged Out No liz bryn eligible based on patient's age to complete this topic RSV Immunizations Under 20 Months Aged Out No longer eligible based on patient's age to complete this topic Insurance Care Teams Purchase Analyst Relationship Specialty Start Date End Date Nathalia Melton MD PCP - General INTERNAL MEDICINE 10/03/24
--- OUTSIDE RECORDS SUMMARY | 2025-03-11 17:33 | XMS_ITS | Clinical Summary ---
Author Organization [facility] Address [address] [place] [address] Care Team Providers Care Cook Jelly Name Role Phone Unavailable Primary Care Provider Unavailabl e Allergies Active Allergy Reactions Criticality Noted Date Comments Metoclopramide Hcl Hallucination Low 03/11/2025 Rosuvastatin Other (See Comments) 11/09/2024 rosuvastatin Tramadol Hallucination Medium 09/19/2017 Medications buPROPion HCL (WELLBUTRIN XL) 150 mg Extended Release 24 hour tablet Take 150 mg by mouth daily. Active clonazePAM (KlonoPIN) 1 mg tablet Take 1 mg by mouth 2 times daily as needed. 2 Active cyanocobalamin (VITAMIN B-12) 1,000 mcg/mL Solution Inject 1,000 mcg by intramuscular injection every 30 days. 5 Active ezetimibe (ZETIA) 10 mg tablet Take 10 mg by mouth daily. Active DULoxetine (CYMBALTA) 60 mg Capsule, Delayed Release(E.C.) Take 60 mg by mouth daily. Active Active Problems No known active problems Encounters Date Type Department Care Team Description 03/11/2025 4:00 PM CDT Office Visit [facility] Oncology and Hematology - Renan 7 Clarisa Ibarra [address] [place] [phone] Jm Sotelo MD Reactive thrombocytosis (Primary Dx); Chronic anemia 01/13/2025 External Device Data STL ABSTRACTION Provider, Abstract 01/13/2025 External Device Data STL ABSTRACTION Provider, Abstract 12/30/2024 External Device Data STL ABSTRACTION Provider, Abstract 12/10/2024 External Device Data STL ABSTRACTION Provider, Abstract 12/09/2024 External Device Data STL ABSTRACTION Provider, Abstract from Last 3 Months Family History Medical History Relation Name Comments Hypertension Brother 1 Hypertension Brother 2 No Known Problems Child Heart Disease Father Hypertension Mother Hypertension Sister Relation Name Status Comments Brother 1 Alive Brother 2 Alive Child Alive Father Alive Mother Alive Sister Alive Social History Tobacco Use Types Packs/Day Years [...] Mass Index 37.65 03/11/2025 3:12 PM CDT Plan of Treatment Upcoming Encounters Date Type Department Care Team (Late st Contact Info) Description 03/19/2025 4:30 PM CDT Telephone Check Up [facility] Oncology and Hematology - Renan [address] [facility] [address] [place] [address] Jm Sotelo MD [address] [facility] [address] [place] [address] Health Maintenance Due Date Last Done Comments DTAP/TDAP/TD VACCINES (6 - Tdap) 09/25/1998 03/03/1993, 06/05/1989, 07/04/1988, Additional history exists Preventative Visit-Managed Medicaid 09/25/2006 HPV/Cotest (21-29) 09/25/2008 HPV VACCINES (1 - 3-dose SCD M series) 09/25/2014 CERVICAL CANCER SCREENING 09/25/2017 HPV/Cotest (30-65) 09/25/2017 PAP SMEAR 09/25/2017 INFLUENZA VACCINE (#1) 2024 06/04/2024 HEPATITIS B VACCINES Completed 03/16/1999, 06/21/1998, 01/28/1998 Insurance [facility] MEDICA[facility]
--- OUTSIDE RECORDS SUMMARY | 2025-03-11 17:33 | XMS_ITS | Encounter Summary ---
Author Organization [facility] Address [address] [place] [address] Care Team Providers Care Concrete Bucket Unloader Name Role Phone Zeyad Lazaro MD Primary Care Provider [phone] Encounter Details Date Type Department Care Team (Late Contact Info) Description 03/11/2025 Orders Only [facility] - Orthopedics [address] [place] [phone] Ofelia Berrios MD [facility] [facility] [address] [place] [address] Acute pain of right shoulder Social History Tobacco Use Types Packs/Day Years Used Date Smoking Tobacco: Every Day Cigarettes Smokeless Tobacco: Never Alcohol Use Standard Drinks/Week Comments No 0 (1 standard drink = 0.6 oz pur e alcohol) PHQ-2 Answer Date Recorded Patient Health Questionnaire-2 Score 4 01/20/2025 Comments No Sex and Gender Information Value Date Recorded Sex Assigned at Not on file Legal Sex Female 5:57 PM CDT Gender Identity Not on file Sexual Orientation Not on file documented as of this encounter Plan of Treatment Upcoming Encounters Date Type Department Care Team (Late Contact Info) Description 03/16/2025 1:30 PM CDT Office Visit [facility] [address] [place] [phone] Ofelia Berrios MD [facility] [address] [place] [address] Scheduled Orders Name Type Priority Associated Diagnoses Orde r Schedule XR Shoulder Right 2Vw or More Imaging Routine Acute pain of right shoulder 1 Occurrences starting 03/11/2025 until 03/11/2026 documented as of this encounter Visit Diagnoses Diagnosis Acute pain of right shoulder- Primary documented in this encounter Care Teams Concrete Bucket Unloader Relationship Specialty Start Date End Date Zeyad Lazaro MD [facility] [address] [address] PCP - General Family Medicine 09/13/23 documented as of this encounter
--- OUTSIDE RECORDS SUMMARY | 2025-03-11 17:33 | XMS_ITS | Clinical Summary ---
Author Organization [facility] Address [address] [place] [address] Care Team Providers Care Bee Producer Name Role Phone Zeyad Lazaro MD Primary Care Provider [phone] Source Comments [facility],non-owned Affiliates and Associated Physician Practices is amultiple site organization consisting of ambulatory clinics and hospital sitesin [place], [place], [place] and [place]. This disclosure is being madepursuant to the Care Everywhere program and may not contain all information available regarding this patient. Last updated 18.[facility] Allergies Active Allergy Reactions Criticality Noted Date [...] 3 times daily 2 Active HYDROcodone-ac etaminophen ([place]) 5-325 MG tabletIndicati ons:Sinus pain Take 1 (one) tablet by mouth every 8 hours as needed for Pain 9 tablet 4 Active Active Problems Problem Noted Date Diagnosed Date Acute pain of right shoulder 01/23/2025 Sepsis 11/23/2018 Encounters Date Type Department Care Team Description 03/11/2025 Orders Only [facility] [address] [place] [phone] Ofelia Berrios MD Acute pain of right shoulder 03/03/2025 Telephone [facility] [address] [place] [phone] Susan Méndez Appointment 01/23/2025 Orders Only [facility] [address] [place] [phone] Bill Lim MD Acute pain of right shoulder from Last 3 Months Family History Medical [...] 10:19 AM CDT Height 149.9 cm (4' 11) 09/13/2023 10:19 AM CDT Body Mass Index 37.37 09/13/2023 10:19 AM CDT Plan of Treatment Upcoming Encounters Date Type Department Care Team (Late st Contact Info) Description 03/16/2025 1:30 PM CDT Office Visit [facility] [address] [facility] [place] [address] Ofelia Berrios MD [address] [facility] [address] [place] [address] Health Maintenance Due Date Last Done Comments HIV SCREENING 09/25/2002 HEPATITIS C SCREENING 09/21/2005 DTAP/TDAP/TD VACCINES (1 - Tdap) 09/25/2006 HEPATITIS B VACCINE (1 of 3 - 19+ 3-dose series) 09/25/2006 PNEUMOCOCCAL VACCINE (1 of 2 - PCV) 09/25/2006 PAP SMEAR 09/25/2008 HPV VACCINE (1 - 3-dose SCDM series) 09/25/2014 DEPRESSION SCREENING 05/28/2024 COVID-19 VACCINE (1 - 2023-2 5 season) 2025 INFLUENZA VACCINE (#1) 2025 ZOSTER VACCINE (1 of 2) 09/25/2037 HIB VACCINE Aged Out No longer eligi ble based on patient's age to complete this topic MENINGOCOCCAL (Group B) VACC INE SHARED DECISION-MAKING Aged Out No longer eligibl e based on patient's age to complete this topic MENINGOCOCCAL GROUPS A/C/Y/W VACCINE Aged Out No longer eligible b ased on patient's age to complete this topic Insurance [employer] [facility] Advance Directives * Full Code (Latest Code Status on File) Date Activated Date Inactivated Comments 11/23/2018 6:28 PM 11/24/2018 4:43 PM * Full Code Date Activated Date Inactivated Comments 11/23/2018 3:00 PM 11/23/2018 6:28 PM Care Teams Bee Producer Relationship Specialty Start Date End Date Zeyad Lazaro MD [address] [place] [id number] PCP - General Family Medicine 09/13/23
[2025-03-11 17:45] LABS: Iron 29 ug/dL (37-170)
[2025-03-11 17:55] LABS: Percent Iron Saturation 7 % (20-50)
[2025-03-11 18:23] LABS: Ferritin 8.87 ng/mL (6.24-137)
[2025-03-11 18:31] LABS: Vitamin B12 574.0 pg/mL (239-931)
== END 2025-03-11 15:46 | disposition home or self-care (01) ==
LOC: ANHLAB 15:45
PROVIDERS: Visit Provider Internal Medicine Hematology & Oncology
DX: D75.838 Other thrombocytosis (principal); D64.9 Anemia, unspecified
CPT/HCPCS: 36415; 80053; 82607; 82728; 82746; 83540; 83550; 84238; 85025; 85652; 86140